=== PATIENT | female | born 1950 | race Caucasian/White ===

== ENCOUNTER → 2016-10-24 | Outpatient (CLI) | payer BC ==
[~2016-10-24] MED LIST: /ESOM40CA; /ESOM40CA OR; /OXYC15TA OR; /PRAV20TA PO; ACIDCAP; ACIDCAP OR; ALDA25TA2; ALDA25TA2 OR; ANTI25TA; ANTI25TA OR; ATARAX; ATEN100T OR; BUSP10TA2; BUSP10TA2 OR; CALC500T49; DIOV320T PO; ENDOCET; ESTR1TAB PO; ESTR2TAB OR; FOLI1TAB; FOLI1TAB OR; HYDR-3719 PO; HYDR25TA8 OR; HYDR2TAB2 PO; IBUP800T; IBUP800T OR; LORA2TAB; LORA2TAB OR; MAGN500T2 OR; METF500T PO; NUCYNTA PO; OPAN10TA16 OR; OXYC1TAB23 PO; OXYC5CAP4 OR; OYST500T OR; PRESTIQ; PRIL20CA OR; PRIL20CA PO; REST0.05 OP; SIMBACORT; SOMA350T; SOMA350T OR; SOMA350T PO; SYMB80AE IN; TENO100T; TIZA4TAB OR; TRIAVIL; TRIAVIL OR; ULTR50TA PO; VITA-113 OR; VITA200C; VITA200C OR; VITA50TA12; Vagifem; [UNRECOGNIZED DRUG - OTHER]; [UNRECOGNIZED DRUG - OTHER] OR; [UNRECOGNIZED DRUG - OTHER] OR; [UNRECOGNIZED DRUG - OTHER] OU; [UNRECOGNIZED DRUG - OTHER] PO; endocet OR
--- NOTE | 2016-10-26 01:15 | ECWPNPC ---
PATIENT NAME: ANGELIA MCNEIL : 1950 GENDER: FEMALE VISIT DATE: 10/24/2016 DISCHARGE DATE: 10/24/16 1017 VISIT LOCKED DATE TIME: PHYSICIAN: SWETHA OVALLES RESOURCE: SWETHA OVALLES REASON FOR APPOINTMENT 1. FOLLOW UP-BACK HISTORY OF PRESENT ILLNESS HISTORY OF PRESENT ILLNESS: PAIN THE PATIENT DESCRIBES THE PAIN... FALL RISK SCREENING: SCREENING :NO FALLS IN THE PAST YEAR TODAY'S VISIT: NOTES: STATES IS HAVING MORE DIFFICULTY WITH PAIN PREVENTING HER FROM WALKING. HAS BEEN USING THE INVERSION TABLE WHICH DOES HELP. GOES TO [facility] INFREQUENTLY. RATES PAIN LEVEL TODAY 10/10. DESCRIBES PAIN CONSTANT, ACHING, THROBBING AND SORE, SHARP AND STABBING. NOTES THAT MOST PAIN IS OVER THE HIPS AND DOWN THE LEGS.. CURRENT MEDICATIONS TAKING SOMA 350 MG TABLET 1 TABLET NEEDED ORALLY BID TAKING METFORMIN HCL 500 MG TABLET 1 TABLET WITH MEALS ORALLY TWICE A DAY TAKING TENORMIN 50 MG TABLET 1 TABLET ORALLY ONCE A DAY TAKING VALSARTAN 80 MG TABLET 1 TABLET ORALLY ONCE A DAY TAKING SPIRONOLACTONE 25 MG TABLET 1 TABLET ORALLY ONCE A DAY TAKING BUSPAR 10 MG TABLET 2 TABLET ORALLY ONCE A DAY TAKING HYDROXYZINE HCL 25 MG TABLET 1 TABLET NEEDED ORALLY EVERY 8 HRS TAKING LORAZEPAM 2 MG TABLET 1 ORALLY 3 TIMES DAILY NEEDED TAKING OMEPRAZOLE 40 MG CAPSULE DELAYED RELEASE 1 CAPSULE ORALLY ONCE A DAY TAKING SYMBICORT 160-4.5 MCG/ACT AEROSOL 2 PUFFS INHALATION TWICE A DAY TAKING MAGNESIUM 500 MG TABLET 1 TABLET WITH A MEAL ORALLY THREE TIMES A DAY TAKING CALCIUM 1200 MG TABLET 1 TABLET WITH MEALS ORALLY TWICE A DAY TAKING PRAVACHOL 40 MG TABLET 1 TABLET ORALLY ONCE A DAY TAKING RESTASIS 0.05 % EMULSION 1 INTO AFFECTED EYE OPHTHALMIC TWICE A DAY TAKING AMITRIPTYLINE HCL 50 MG TABLET 1 TABLET ORALLY FOUR TIMES A DAY TAKING IBUPROFEN 800 MG TABLET 1 TABLET ORALLY THREE TIMES A DAY PRN PAIN 3 MONTHS SUPPLY TAKING DRONABINOL 5 MG CAPSULE 1 CAPSULE BEFORE LUNCH AND SUPPER ORALLY TWICE A DAY MDD=2 TAKING HYDROCODONE-ACETAMINOPHEN 10-325 MG TABLET 1 TABLET NEEDED ORALLY EVERY 6- 8 HRS MDD3 NOT-TAKING IRON 1 TAB ORAL DAILY NOT-TAKING ESTRADIOL 1 MG TABLET 1 TABLET ORALLY EVERY OTHER DAY, NOTES: WEANING OFF MEDICATION LIST REVIEWED AND RECONCILED WITH THE PATIENT PAST MEDICAL HISTORY HYPERTENSION ANXIETY DIABETES COPD CERVICAL CANCER HYPERLIPIDEMIA ALLERGIES MORPHINE SULFATE: ITCHING: ALLERGY PENICILLIN (FOR ALLERGIES USE ONLY): HIVES: ALLERGY SULFA (FOR ALLERGY USE ONLY): HIVES: ALLERGY TIZANIDINE HCL: EXCESSIVE SLEEPINESS: CONTRAINDICATION SOCIAL HISTORY GENERAL: TOBACCO USE ARE YOU A:NONSMOKER LEARNING BARRIERS / SPECIAL NEEDS ORIENTED TO PLAN OF CARE: PATIENT, PAIN MANAGEMENT PATIENT, ORIENTED TO PLAN OF CARE: PATIENT, PAIN MANAGEMENT PATIENT. NEW PATIENT PAIN DIARY TODAY'S VISITNOTES FROM 0-10, WHAT LEVEL IS YOUR PAIN TODAY?0 PAIN CLINIC PFS, CLERGY, PUBLIC HEALTH REFERRALS PFS REFERRAL NEEDED?NO CLERGY REFERRAL NEEDED?NO PUBLIC HEALTH REFERRAL NEEDED?NO WAS THE PROVIDER NOTIFIED OF ANY PERTINENT INFO?NO PFS REFERRAL NEEDED?NO CLERGY REFERRAL NEEDED?NO PUBLIC HEALTH REFERRAL NEEDED?NO WAS THE PROVIDER NOTIFIED OF ANY PERTINENT INFO?NO REVIEW OF SYSTEMS CONSTITUTIONAL: ANY CHANGE IN YOUR MEDICAL CONDITION? NO . CHILLS NO . FEVER NO . INFECTION: DO YOU HAVE NEW INFECTIONS? NO . DO YOU HAVE HISTORY OF MRSA? NO . MUSCULOSKELETAL: ANY NEW PATTERNS OF PAIN OR NUMBNESS? NO . GASTROENTEROLOGY: GENERAL NOTES SOME GI DISCOMFORT WITH IBUPROFEN. . ANY NEW CHANGE IN BOWEL CONTROL? NO . GENITOURINARY: ANY NEW CHANGE IN BLADDER CONTROL? NO . IS THERE A CHANCE YOU COULD BE ? NO . HEMATOLOGY/LYMPH: GENERAL BEING TREATED FOR ANEMIA. IRON CAUSES ANEMIA . DO YOU TAKE ANY BLOOD THINNERS? (FOR EXAMPLE- COUMADIN, PLAVIX, AGGRENOX, PLATEL, PRADAXA, OR XARELTO) NO . WHEN WAS YOUR LAST DOSE? DATE: TIME: . NEUROLOGY: HAVE YOU FALLEN IN THE PAST 6 MONTHS? NO . ANY NEW EXTREMITY NUMBNESS OR WEAKNESS? NO . CARDIOLOGY: DO YOU HAVE A PACEMAKER OR DEFIBRILLATOR? NO . RESPIRATORY: HAVE YOU BEEN SICK IN THE PAST WEEK? NO . FEVER NO . FLU LIKE SYMPTOMS? NO . COUGH NO . INTEGUMENTARY: DO YOU HAVE ANY RASHES OR OPEN SORES? NO . ALLERGIC/IMMUNO: ARE YOU ALLERGIC TO SHELLFISH OR IV DYE? NO . ANY NEW ALLERGIES? NO . PSYCHIATRIC: DO YOU HAVE THOUGHTS OF HURTING YOURSELF OR SOMEONE ELSE? NO . ARE YOU ABUSED, NEGLECTED, OR IN AN UNSAFE ENVIRONMENT? NO . ENDOCRINOLOGY: ARE YOU DIABETIC? NO . OTHER: DO YOU NEED ANY PRESCRIPTIONS? YES SOMA . IF YES, PLEASE LIST: ____ . ANY NEW PROBLEMS WITH YOUR MEDICATIONS? NO . WHEN DID YOU LAST EAT? ____ . WHEN DID YOU LAST DRINK? ____ . WHAT DID YOU LAST DRINK? ____ . NAME OF PERSON DRIVING YOU HOME? ____ . DO YOU HAVE ANY OTHER QUESTIONS OR CONCERNS NO . REVIEWED BY: PROVIDER: SWETHA SOMMER . VITAL SIGNS WT 156 LBS, HT 62 IN, BMI 28.53 INDEX, BP 117/65 MM HG, HR 69 /MIN, RR 16 /MIN, TEMP 96.9 F, OXYGEN SAT % 96%, NA INITIALS SC 09:43. EXAMINATION GENERAL EXAMINATION: LUNGS:CLEAR TO AUSCULTATION BILATERALLY. HEART:HEART RATE REGULAR. MUSCULOSKELETAL:RISES EASILY TO STANDING POSITION. POSTURE UPRIGHT. POINT TENDERNESS OVER RIGHT> LEFT SIJ AND ACROSS SACRUM. , MUSCLE STRENGTH TESTING 5/5 BILATERAL LOWER EXTREMITIES. ARTHRITIC NODULES NOTED AT THE BOTH FIRST METATARSALS. GAIT INITIALLY ANTALGIC AND THEN IMPROVES AFTER A FEW STEPS. ASSESSMENTS HIP PAIN, BILATERAL - M25.551 (PRIMARY) LUMBAR FACET ARTHROPATHY - M12.88 CHRONIC PRESCRIPTION OPIATE USE - Z79.891 TREATMENT HIP PAIN, BILATERAL REFILL HYDROCODONE-ACETAMINOPHEN TABLET, 10-325 MG, 1 TABLET NEEDED, ORALLY, EVERY 6- 8 HRS MDD3, 30 DAY(S), 90, REFILLS 0 START SOMA TABLET, 350 MG, 1 TABLET, ORALLY, BID MDD=2, 30 DAY(S), 60, REFILLS 2 NOTES: UTOX TODAY. CONTINUE CURRENT MEDS. CONTINUE INVERSION TABLE. WALK DAILY. CLINICAL NOTES: ISTOP REGISTRY REVIEWED AND DEMNOSTRATES COMPLLIANCE. BRINGS IN MEDICATIONS WHICH IS APPROPRIATE FOR WHAT WAS DISPENSED. RECENT URINE TOXICOLOGY REVIEWED. NO UNAUTHORIZED MEDICATIONS. NO ILLICIT SUBSTANCES AND PRESCRIBED MEDICATIONS WERE PRESENT. PROCEDURE CODES FA211 ESTABILISHED PATIENT [facility] CHARGE FOLLOW UP 2 MONTHS ELECTRONICALLY SIGNED BY RADHA WEST ON 10/25/2016 AT 07:27 PM EST DISCLAIMER : THIS IS A VISIT SUMMARY EXTRACTED FROM THE [employer] CHART. IT IS NOT A COPY OF THE [employer] PROGRESS NOTE. MTDD
== END ==
LOC: M PAIN 09:40
PROVIDERS: ATTEND Nurse Practitioner Family
DX: Z09 Encounter for follow-up examination after completed treatment for conditions other than malignant neoplasm (principal); M25.551 Pain in right hip; M12.88 Other specific arthropathies, not elsewhere classified, other specified site; I10 Essential (primary) hypertension; E11.9 Type 2 diabetes mellitus without complications; F41.9 Anxiety disorder, unspecified; J44.9 Chronic obstructive pulmonary disease, unspecified; E78.5 Hyperlipidemia, unspecified; Z88.5 Allergy status to narcotic agent; Z88.0 Allergy status to penicillin; Z88.2 Allergy status to sulfonamides; Z88.8 Allergy status to other drugs, medicaments and biological substances; Z79.891 Long term (current) use of opiate analgesic; Z79.84 Long term (current) use of oral hypoglycemic drugs; Z79.1 Long term (current) use of non-steroidal anti-inflammatories (NSAID); Z79.899 Other long term (current) drug therapy; Z85.41 Personal history of malignant neoplasm of cervix uteri

== ENCOUNTER → 2017-03-26 | Outpatient (CLI) | payer BC ==
[~2017-03-26] MED LIST changes: -METF500T PO; +METF500T13 PO; -ULTR50TA PO; +ULTR50TA8 PO
--- NOTE | 2017-04-12 00:33 | ECWPNPC ---
PATIENT NAME: ANGELIA MCNEIL : 1950 GENDER: FEMALE VISIT DATE: 03/26/2017 DISCHARGE DATE: 03/26/17 1105 VISIT LOCKED DATE TIME: PHYSICIAN: SWETHA OVALLES RESOURCE: SWETHA OVALLES REASON FOR APPOINTMENT 1. MEDS HISTORY OF PRESENT ILLNESS HISTORY OF PRESENT ILLNESS: PAIN THE PATIENT DESCRIBES THE PAIN... FALL RISK SCREENING: SCREENING :NO FALLS IN THE PAST YEAR TODAY'S VISIT: NOTES: RATES PAIN TODAY 10/10. RATES PAIN TODAY CONSTANT, ACHING, BURNING, SHARP, SHOOTING, TENDER. HAD CONTACTED OFFICE ASKING FOR NEW PAIN MEDS - HAD DEVELOPED ALLERGY WITH SEVERE ITCHING TO HCD AND OCD. SAW PCP [facility] - HE INCREASED HER DOSE OF ATARAX TO 50 MG, SHE HAS BEEN CURRENTLY USING BOTH BENEDRYL AND ATARAX. IS HAVING SOME ISSUES WITH URINATION AND URINE CULT WAS DONE ON SUNDAY - SWAITING RESULTS. HAS FOLLOWUP SCHED WITH DR HANNAH. PAIN AREAS ARE IN THE CHEST WALL AND THORACIC REGION - CHIROPRACTER WAS ABLE TO HELP WITH THIS. IS ALSO HAVING PAIN IN THE BALLS OF HER FEET. . CURRENT MEDICATIONS TAKING METFORMIN HCL 500 MG TABLET 1 TABLET WITH MEALS ORALLY TWICE A DAY TAKING VALSARTAN 80 MG TABLET 1 TABLET ORALLY ONCE A DAY TAKING SPIRONOLACTONE 25 MG TABLET 1 TABLET ORALLY ONCE A DAY TAKING BUSPAR 10 MG TABLET 2 TABLET ORALLY ONCE A DAY TAKING HYDROXYZINE HCL 25 MG TABLET 2 TABLET NEEDED ORALLY EVERY 8 HRS TAKING LORAZEPAM 2 MG TABLET 1 ORALLY 3 TIMES DAILY NEEDED TAKING OMEPRAZOLE 40 MG CAPSULE DELAYED RELEASE 1 CAPSULE ORALLY ONCE A DAY TAKING SYMBICORT 160-4.5 MCG/ACT AEROSOL 2 PUFFS INHALATION TWICE A DAY TAKING MAGNESIUM 500 MG TABLET 1 TABLET WITH A MEAL ORALLY THREE TIMES A DAY TAKING CALCIUM 1200 MG TABLET 1 TABLET WITH MEALS ORALLY TWICE A DAY TAKING PRAVACHOL 40 MG TABLET 1 TABLET ORALLY ONCE A DAY TAKING RESTASIS 0.05 % EMULSION 1 INTO AFFECTED EYE OPHTHALMIC TWICE A DAY TAKING TENORMIN 50 MG TABLET 1 TABLET ORALLY ONCE A DAY TAKING SOMA 350 MG TABLET 1 TABLET ORALLY BID MDD=2 TAKING DRONABINOL 5 MG CAPSULE 1 CAPSULE BEFORE LUNCH AND SUPPER ORALLY TWICE A DAY MDD=2 TAKING IBUPROFEN 800 MG TABLET 1 TABLET ORALLY THREE TIMES A DAY PRN PAIN 3 MONTHS SUPPLY TAKING PERPHENAZINE-AMITRIPTYLINE 4-50 MG TABLET 1 TABLET ORALLY TWICE A DAY NOT-TAKING AMITRIPTYLINE HCL 50 MG TABLET 1 TABLET ORALLY FOUR TIMES A DAY NOT-TAKING NORCO 10-325 MG TABLET 1 TABLET NEEDED ORALLY EVERY 6 - 8 HOURS PRN PAIN MDD=3 NOT-TAKING IRON 1 TAB ORAL DAILY NOT-TAKING ESTRADIOL 1 MG TABLET 1 TABLET ORALLY EVERY OTHER DAY, NOTES: WEANING OFF MEDICATION LIST REVIEWED AND RECONCILED WITH THE PATIENT PAST MEDICAL HISTORY HYPERTENSION ANXIETY DIABETES COPD CERVICAL CANCER HYPERLIPIDEMIA ALLERGIES MORPHINE SULFATE: ITCHING: ALLERGY PENICILLIN (FOR ALLERGIES USE ONLY): HIVES: ALLERGY SULFA (FOR ALLERGY USE ONLY): HIVES: ALLERGY TIZANIDINE HCL: EXCESSIVE SLEEPINESS: CONTRAINDICATION HYDROCODONE-ACETAMINOPHEN: ITCHING: ALLERGY OXYCODONE HCL: ITCHING: ALLERGY REVIEW OF SYSTEMS REVIEWED BY: PROVIDER: SWETHA SOMMER . CONSTITUTIONAL: ANY CHANGE IN YOUR MEDICAL CONDITION? NO . CHILLS NO . FEVER NO . INFECTION: DO YOU HAVE NEW INFECTIONS? NO . DO YOU HAVE HISTORY OF MRSA? NO . MUSCULOSKELETAL: ANY NEW PATTERNS OF PAIN OR NUMBNESS? YES PT REPORTS PAIN NOW GOES DOWN BOTH LEGS INTO FEET, AND HAS SOME NUMBNESS IN HER LEFT FOOT. . GASTROENTEROLOGY: ANY NEW CHANGE IN BOWEL CONTROL? NO . GENITOURINARY: ANY NEW CHANGE IN BLADDER CONTROL? YES PT REPORTS SHE HAS HAD A BLADDER INFECTION, TREATED TWICE WITH ANITBIOTICS. SEEN BY PRIMARY FOR THIS. . IS THERE A CHANCE YOU COULD BE ? NO . HEMATOLOGY/LYMPH: DO YOU TAKE ANY BLOOD THINNERS? (FOR EXAMPLE- COUMADIN, PLAVIX, AGGRENOX, PLATEL, PRADAXA, OR XARELTO) NO . WHEN WAS YOUR LAST DOSE? DATE: TIME: . NEUROLOGY: HAVE YOU FALLEN IN THE PAST 6 MONTHS? NO . ANY NEW EXTREMITY NUMBNESS OR WEAKNESS? NO . CARDIOLOGY: DO YOU HAVE A PACEMAKER OR DEFIBRILLATOR? NO . RESPIRATORY: HAVE YOU BEEN SICK IN THE PAST WEEK? NO . FEVER NO . FLU LIKE SYMPTOMS? NO . COUGH NO . INTEGUMENTARY: DO YOU HAVE ANY RASHES OR OPEN SORES? NO . ALLERGIC/IMMUNO: ARE YOU ALLERGIC TO SHELLFISH OR IV DYE? NO . ANY NEW ALLERGIES? NO . PSYCHIATRIC: DO YOU HAVE THOUGHTS OF HURTING YOURSELF OR SOMEONE ELSE? NO . ARE YOU ABUSED, NEGLECTED, OR IN AN UNSAFE ENVIRONMENT? NO . ENDOCRINOLOGY: ARE YOU DIABETIC? YES - STATES BLOOD SUGARS ARE UNDER CONTROL . OTHER: DO YOU NEED ANY PRESCRIPTIONS? NO . IF YES, PLEASE LIST: ____ . ANY NEW PROBLEMS WITH YOUR MEDICATIONS? YES PT REPORTS ITCHING WITH HYDROCODONE AND OXYCODONE, AND HAS STOPPED TAKING IT . WHEN DID YOU LAST EAT? ____ . WHEN DID YOU LAST DRINK? ____ . WHAT DID YOU LAST DRINK? ____ . NAME OF PERSON DRIVING YOU HOME? ____ . DO YOU HAVE ANY OTHER QUESTIONS OR CONCERNS NO . VITAL SIGNS WT 161.8 LBS, HT 62 IN, BMI 29.59 INDEX, BP 132/52 MM HG, HR 71 /MIN, RR 16 /MIN, TEMP 97.8 F, OXYGEN SAT % 98%, NA INITIALS TL 1004. EXAMINATION GENERAL EXAMINATION: LUNGS:CLEAR TO AUSCULTATION BILATERALLY. HEART:HEART RATE REGULAR. MUSCULOSKELETAL:RISES EASILY TO STANDING POSITION. POSTURE UPRIGHT. POINT TENDERNESS OVER RIGHT> LEFT SIJ AND ACROSS SACRUM. TENDERNESS ALSO WITH PALPATION OVER LEFT GREATER THAN RIGHT TROCANTER. MUSCLE STRENGTH TESTING 5/5 BILATERAL LOWER EXTREMITIES. ARTHRITIC NODULES NOTED AT THE BOTH FIRST METATARSALS, RIGHT GREATER THAN LEFT.. GAIT INITIALLY ANTALGIC AND THEN IMPROVES AFTER A FEW STEPS. ASSESSMENTS HIP PAIN, BILATERAL - M25.551 (PRIMARY) LUMBAR FACET ARTHROPATHY - M12.88 CHRONIC PRESCRIPTION OPIATE USE - Z79.891 TREATMENT HIP PAIN, BILATERAL START NUCYNTA TABLET, 75 MG, 1 TABLET, ORALLY, EVERY 6 - 8 HRS PRN PAIN MDD=3, 30 DAY(S), 90, REFILLS 0 NOTES: EAT FOODS WITH HIGH IRON LEVELS. CLINICAL NOTES: WE WILL COUNT AND DISPOSE OF OXYCODONE AND HYDROCODONE, ISTOP REGISTRY REVIEWED AND DEMNOSTRATES COMPLLIANCE. BRINGS IN MEDICATIONS WHICH IS APPROPRIATE FOR WHAT WAS DISPENSED. RECENT URINE TOXICOLOGY REVIEWED. NO UNAUTHORIZED MEDICATIONS. NO ILLICIT SUBSTANCES AND PRESCRIBED MEDICATIONS WERE PRESENT. PROCEDURE CODES FA211 ESTABILISHED PATIENT [facility] CHARGE DISPOSITION & COMMUNICATION FOLLOW UP 2 MONTHS (REASON: BACK PAIN) ELECTRONICALLY SIGNED BY RADHA WEST ON 04/11/2017 AT 08:30 AM EDT DISCLAIMER : THIS IS A VISIT SUMMARY EXTRACTED FROM THE [employer] CHART. IT IS NOT A COPY OF THE [employer] PROGRESS NOTE. MTDD
== END ==
LOC: M PAIN 10:00
PROVIDERS: ATTEND Nurse Practitioner Family
DX: M25.551 Pain in right hip (principal); M12.88 Other specific arthropathies, not elsewhere classified, other specified site; G89.29 Other chronic pain; I10 Essential (primary) hypertension; E11.9 Type 2 diabetes mellitus without complications; F41.9 Anxiety disorder, unspecified; J44.9 Chronic obstructive pulmonary disease, unspecified; E78.5 Hyperlipidemia, unspecified; Z79.891 Long term (current) use of opiate analgesic; Z79.899 Other long term (current) drug therapy; Z88.5 Allergy status to narcotic agent; Z88.0 Allergy status to penicillin; Z88.2 Allergy status to sulfonamides; Z88.8 Allergy status to other drugs, medicaments and biological substances

== ENCOUNTER → 2017-06-20 | Outpatient (CLI) | payer BC ==
--- NOTE | 2017-07-05 00:43 | ECWPNPC ---
PATIENT NAME: ANGELIA MCNEIL : 1950 GENDER: FEMALE VISIT DATE: 06/20/2017 DISCHARGE DATE: 06/20/17 1057 VISIT LOCKED DATE TIME: PHYSICIAN: SWETHA OVALLES RESOURCE: SWETHA OVALLES REASON FOR APPOINTMENT 1. MEDS HISTORY OF PRESENT ILLNESS HISTORY OF PRESENT ILLNESS: PAIN THE PATIENT DESCRIBES THE PAIN... FALL RISK SCREENING: SCREENING :NO FALLS IN THE PAST YEAR TODAY'S VISIT: NOTES: IS NOT FEELING WELL. STARTED NUCYNTA BUT APPRAENTLY HAS BEEN EXPERIENCING ITCHING AND RASH. . NUCYNTA DID HELP THE PAIN. TRIED TO TAKE IT WITH BENEDRYL. HAS STOPPED MM. WAS IN [facility] ER OVER DAY WEEKEND. HAD SEVERE GI BUG WITH DIARRHEA AFTER DOSE OF MAG SULFATE.NOTES SHE IS HURTING ALL OVER. RATES PAIN TODAY 7-8/10. DESCRIBES PAIN CONSTAND, ACHING, THROBBING SHARP AND SORE. PAIN IS CENTERED ACROSS THE LOW BACK WITH RADIATION TO BOTH HIPS AND DOWN BOTH LEGS TO LEVEL OF CALVES. . CURRENT MEDICATIONS TAKING METFORMIN HCL 500 MG TABLET 1 TABLET WITH MEALS ORALLY TWICE A DAY TAKING VALSARTAN 80 MG TABLET 1 TABLET ORALLY ONCE A DAY TAKING SPIRONOLACTONE 25 MG TABLET 1 TABLET ORALLY ONCE A DAY TAKING BUSPAR 10 MG TABLET 2 TABLET ORALLY ONCE A DAY TAKING HYDROXYZINE HCL 25 MG TABLET 2 TABLET NEEDED ORALLY EVERY 8 HRS TAKING LORAZEPAM 2 MG TABLET 1 ORALLY 3 TIMES DAILY NEEDED TAKING OMEPRAZOLE 40 MG CAPSULE DELAYED RELEASE 1 CAPSULE ORALLY ONCE A DAY TAKING SYMBICORT 160-4.5 MCG/ACT AEROSOL 2 PUFFS INHALATION TWICE A DAY TAKING MAGNESIUM 500 MG TABLET 1 TABLET WITH A MEAL ORALLY THREE TIMES A DAY TAKING CALCIUM 1200 MG TABLET 1 TABLET WITH MEALS ORALLY TWICE A DAY TAKING PRAVACHOL 40 MG TABLET 1 TABLET ORALLY ONCE A DAY TAKING RESTASIS 0.05 % EMULSION 1 INTO AFFECTED EYE OPHTHALMIC TWICE A DAY TAKING TENORMIN 50 MG TABLET 1 TABLET ORALLY ONCE A DAY TAKING IBUPROFEN 800 MG TABLET 1 TABLET ORALLY THREE TIMES A DAY PRN PAIN 3 MONTHS SUPPLY TAKING PERPHENAZINE-AMITRIPTYLINE 4-50 MG TABLET 1 TABLET ORALLY TWICE A DAY TAKING SOMA 350 MG TABLET 1 TABLET ORALLY BID MDD=2 NOT-TAKING DRONABINOL 5 MG CAPSULE 1 CAPSULE BEFORE LUNCH AND SUPPER ORALLY TWICE A DAY MDD=2 NOT-TAKING NUCYNTA 75 MG TABLET 1 TABLET ORALLY EVERY 6 - 8 HRS PRN PAIN MDD=3 NOT-TAKING AMITRIPTYLINE HCL 50 MG TABLET 1 TABLET ORALLY FOUR TIMES A DAY NOT-TAKING NORCO 10-325 MG TABLET 1 TABLET NEEDED ORALLY EVERY 6 - 8 HOURS PRN PAIN MDD=3 NOT-TAKING IRON 1 TAB ORAL DAILY NOT-TAKING ESTRADIOL 1 MG TABLET 1 TABLET ORALLY EVERY OTHER DAY, NOTES: WEANING OFF MEDICATION LIST REVIEWED AND RECONCILED WITH THE PATIENT PAST MEDICAL HISTORY HYPERTENSION ANXIETY DIABETES COPD CERVICAL CANCER HYPERLIPIDEMIA ALLERGIES MORPHINE SULFATE: ITCHING: ALLERGY PENICILLIN (FOR ALLERGIES USE ONLY): HIVES: ALLERGY SULFA (FOR ALLERGY USE ONLY): HIVES: ALLERGY TIZANIDINE HCL: EXCESSIVE SLEEPINESS: CONTRAINDICATION HYDROCODONE-ACETAMINOPHEN: ITCHING: ALLERGY OXYCODONE HCL: ITCHING: ALLERGY NUCYNTA: ITCHING: ALLERGY REVIEW OF SYSTEMS REVIEWED BY: PROVIDER: SWETHA SOMMER . CONSTITUTIONAL: ANY CHANGE IN YOUR MEDICAL CONDITION? WAS IN [facility] ED OVER LABOR DAY WITH UNABLE TO EAT AND FEELING SICK ALL OVER . CHILLS NO . FEVER NO . INFECTION: DO YOU HAVE NEW INFECTIONS? NO . DO YOU HAVE HISTORY OF MRSA? NO . MUSCULOSKELETAL: ANY NEW PATTERNS OF PAIN OR NUMBNESS? YES, DOWN BOTH LEGS AND INTO FEET . GASTROENTEROLOGY: ANY NEW CHANGE IN BOWEL CONTROL? NO . GENITOURINARY: ANY NEW CHANGE IN BLADDER CONTROL? NO . IS THERE A CHANCE YOU COULD BE ? NO . HEMATOLOGY/LYMPH: DO YOU TAKE ANY BLOOD THINNERS? (FOR EXAMPLE- COUMADIN, PLAVIX, AGGRENOX, PLATEL, PRADAXA, OR XARELTO) NO . WHEN WAS YOUR LAST DOSE? DATE: TIME: . NEUROLOGY: HAVE YOU FALLEN IN THE PAST 6 MONTHS? NO . ANY NEW EXTREMITY NUMBNESS OR WEAKNESS? NO . CARDIOLOGY: DO YOU HAVE A PACEMAKER OR DEFIBRILLATOR? NO . CHEST PAIN PATIENT DENIES . LEG EDEMA MINIMAL . RESPIRATORY: HAVE YOU BEEN SICK IN THE PAST WEEK? NO . FEVER NO . FLU LIKE SYMPTOMS? NO . COUGH NO . INTEGUMENTARY: DO YOU HAVE ANY RASHES OR OPEN SORES? NO . ALLERGIC/IMMUNO: ARE YOU ALLERGIC TO SHELLFISH OR IV DYE? NO . ANY NEW ALLERGIES? NO . PSYCHIATRIC: DO YOU HAVE THOUGHTS OF HURTING YOURSELF OR SOMEONE ELSE? NO . ARE YOU ABUSED, NEGLECTED, OR IN AN UNSAFE ENVIRONMENT? NO . ENDOCRINOLOGY: ARE YOU DIABETIC? YES . OTHER: DO YOU NEED ANY PRESCRIPTIONS? YES, NUCYNTA MAKES HER ITCH ALL OVER . IF YES, PLEASE LIST: ____ . ANY NEW PROBLEMS WITH YOUR MEDICATIONS? YES . WHEN DID YOU LAST EAT? ____ . WHEN DID YOU LAST DRINK? ____ . WHAT DID YOU LAST DRINK? ____ . NAME OF PERSON DRIVING YOU HOME? ____ . DO YOU HAVE ANY OTHER QUESTIONS OR CONCERNS NO . VITAL SIGNS WT 151 LBS, HT 62 IN, BMI 27.62 INDEX, BP 97/51 MM HG, HR 64 /MIN, RR 18 /MIN, TEMP 97.2 F, OXYGEN SAT % 98%, NA INITIALS [id number], REVIEWED BY: NLDISCUSSED LOW BP WITH BOTH PT AND PRACTICIONER. EXAMINATION GENERAL EXAMINATION: GENERAL APPEARANCE:PALE. PSYCHALERT , ORIENTED X 3 , DISTRESSED. LUNGS:CLEAR TO AUSCULTATION BILATERALLY . HEART:HEART RATE REGULAR . MUSCULOSKELETAL:RISES SLOWLY TO STANDING POSITION. POSTURE UPRIGHT. POINT TENDERNESS OVER RIGHT> LEFT SIJ AND ACROSS SACRUM. TENDERNESS ALSO WITH PALPATION OVER LEFT GREATER THAN RIGHT TROCANTER. MUSCLE STRENGTH TESTING 5/5 BILATERAL LOWER EXTREMITIES. ARTHRITIC NODULES NOTED AT THE BOTH FIRST METATARSALS, RIGHT GREATER THAN LEFT.. GAIT ANTALGIC.. ASSESSMENTS HIP PAIN, BILATERAL - M25.551 (PRIMARY) LUMBAR FACET ARTHROPATHY - M12.88 CHRONIC PRESCRIPTION OPIATE USE - Z79.891 TREATMENT HIP PAIN, BILATERAL START BUTRANS PATCH WEEKLY, 5 MCG/HR, 1 PATCH TO SKIN, TRANSDERMAL, APPLY TO SHOULDERQ 7 DAYS MDD=1, 30 DAY(S), 4, REFILLS 0 NOTES: RESTART DRONABINOL 5 MG AT BEDTIME. CONSIDER SECOND OPINION REGARDING BLOOD PRESSURE AND MEDS. COUNT AND DESTROY NUCYNTA. MEDCATIONS REVIEWED. PATIENT HAS MANY ALLERGIES AND SENSITIVITIES. WILL TRY TO START BUTRANS PATCH FOR PAIN CONTROL. IS NOT A CANDIDATE FOR [employer] WE ARE CONCERNED THAT THIS WOULD BE TOO POTENT AND PUT HER AT INCREASED RISK FOR FALLS AND RESPIRATORY FAILURE. PROCEDURE CODES FA211 ESTABILISHED PATIENT [facility] CHARGE DISPOSITION & COMMUNICATION FOLLOW UP 1 MONTH (REASON: BACK PAIN) ELECTRONICALLY SIGNED BY RADHA WEST ON 07/02/2017 AT 01:46 PM EDT DISCLAIMER : THIS IS A VISIT SUMMARY EXTRACTED FROM THE [email or web address] CHART. IT IS NOT A COPY OF THE [email or web address] PROGRESS NOTE. NAZANIN
== END ==
LOC: M PAIN 09:45
PROVIDERS: ATTEND Nurse Practitioner Family
DX: M25.551 Pain in right hip (principal); M12.88 Other specific arthropathies, not elsewhere classified, other specified site; I10 Essential (primary) hypertension; F41.9 Anxiety disorder, unspecified; E11.9 Type 2 diabetes mellitus without complications; J44.9 Chronic obstructive pulmonary disease, unspecified; E78.5 Hyperlipidemia, unspecified; Z88.5 Allergy status to narcotic agent; Z88.0 Allergy status to penicillin; Z88.2 Allergy status to sulfonamides; Z88.8 Allergy status to other drugs, medicaments and biological substances; Z79.84 Long term (current) use of oral hypoglycemic drugs; Z79.1 Long term (current) use of non-steroidal anti-inflammatories (NSAID); Z79.891 Long term (current) use of opiate analgesic; Z79.899 Other long term (current) drug therapy

== ENCOUNTER → 2017-07-24 | Outpatient (CLI) | payer BC | LOC: M PAIN 09:30 | PROVIDERS: ATTEND Nurse Practitioner Family | DX: M25.551 Pain in right hip (principal); M12.88 Other specific arthropathies, not elsewhere classified, other specified site; I10 Essential (primary) hypertension; E11.9 Type 2 diabetes mellitus without complications; Z79.891 Long term (current) use of opiate analgesic; Z79.84 Long term (current) use of oral hypoglycemic drugs; Z79.899 Other long term (current) drug therapy; Z88.0 Allergy status to penicillin; Z88.2 Allergy status to sulfonamides; Z88.5 Allergy status to narcotic agent; Z88.8 Allergy status to other drugs, medicaments and biological substances ==

== ENCOUNTER → 2017-10-08 | Outpatient (CLI) | payer BC | LOC: M PAIN 09:30 | DX: M25.551 Pain in right hip (principal); M12.88 Other specific arthropathies, not elsewhere classified, other specified site; E11.9 Type 2 diabetes mellitus without complications; I10 Essential (primary) hypertension; F41.9 Anxiety disorder, unspecified; J44.9 Chronic obstructive pulmonary disease, unspecified; E78.5 Hyperlipidemia, unspecified; Z88.0 Allergy status to penicillin; Z88.2 Allergy status to sulfonamides; Z88.5 Allergy status to narcotic agent; Z88.8 Allergy status to other drugs, medicaments and biological substances; Z79.84 Long term (current) use of oral hypoglycemic drugs; Z79.1 Long term (current) use of non-steroidal anti-inflammatories (NSAID); Z79.891 Long term (current) use of opiate analgesic; Z79.899 Other long term (current) drug therapy | CPT/HCPCS: G0463 ==

== ENCOUNTER → 2018-01-07 | Outpatient (CLI) | payer BC | LOC: M PAIN 09:30 | DX: M25.551 Pain in right hip (principal); M15.9 Polyosteoarthritis, unspecified; I10 Essential (primary) hypertension; E11.9 Type 2 diabetes mellitus without complications; F41.9 Anxiety disorder, unspecified; J44.9 Chronic obstructive pulmonary disease, unspecified; E78.5 Hyperlipidemia, unspecified; D64.9 Anemia, unspecified; Z79.82 Long term (current) use of aspirin; Z79.84 Long term (current) use of oral hypoglycemic drugs; Z79.891 Long term (current) use of opiate analgesic; Z79.899 Other long term (current) drug therapy; Z88.0 Allergy status to penicillin; Z88.2 Allergy status to sulfonamides; Z88.5 Allergy status to narcotic agent; Z88.8 Allergy status to other drugs, medicaments and biological substances | CPT/HCPCS: G0463 ==

== ENCOUNTER → 2018-03-13 | Outpatient (CLI) | payer BC | LOC: M PAIN 09:15 | DX: M25.551 Pain in right hip (principal); M12.88 Other specific arthropathies, not elsewhere classified, other specified site; I10 Essential (primary) hypertension; E11.9 Type 2 diabetes mellitus without complications; J44.9 Chronic obstructive pulmonary disease, unspecified; E78.5 Hyperlipidemia, unspecified; D64.9 Anemia, unspecified; Z79.82 Long term (current) use of aspirin; Z79.84 Long term (current) use of oral hypoglycemic drugs; Z79.891 Long term (current) use of opiate analgesic; Z79.899 Other long term (current) drug therapy; Z88.8 Allergy status to other drugs, medicaments and biological substances; Z91.81 History of falling; Z85.41 Personal history of malignant neoplasm of cervix uteri | CPT/HCPCS: G0463 ==

== ENCOUNTER → 2018-06-25 | Outpatient (CLI) | payer BC | LOC: M PAIN 09:15 | DX: M12.88 Other specific arthropathies, not elsewhere classified, other specified site (principal); M15.9 Polyosteoarthritis, unspecified; I10 Essential (primary) hypertension; F41.9 Anxiety disorder, unspecified; E11.9 Type 2 diabetes mellitus without complications; J44.9 Chronic obstructive pulmonary disease, unspecified; E78.5 Hyperlipidemia, unspecified; D64.9 Anemia, unspecified; Z85.41 Personal history of malignant neoplasm of cervix uteri; Z79.84 Long term (current) use of oral hypoglycemic drugs; Z79.82 Long term (current) use of aspirin; Z79.899 Other long term (current) drug therapy; Z88.0 Allergy status to penicillin; Z88.2 Allergy status to sulfonamides; Z88.5 Allergy status to narcotic agent; Z88.8 Allergy status to other drugs, medicaments and biological substances | CPT/HCPCS: G0463 ==

== ENCOUNTER → 2018-10-08 | Outpatient (CLI) | payer BC ==
--- NOTE | 2018-10-28 01:57 | ECWPNPC ---
PATIENT NAME: ANGELIA MCNEIL : 1950 GENDER: FEMALE VISIT DATE: 10/08/2018 DISCHARGE DATE: 10/08/18 1029 VISIT LOCKED DATE TIME: PHYSICIAN: MARINA STARKEY RESOURCE: MARINA STARKEY REASON FOR APPOINTMENT 1. BACK HISTORY OF PRESENT ILLNESS HISTORY OF PRESENT ILLNESS: HERE FOR F/U OF CHRONIC GENERALIZED PAIN.RATING PAIN VAS 9/10.CURRENTLY TAKING DRONABINOL ,IBUPROFEN AND SOMA.HISTORY OF MULTIPLE DRUG ALLERGIES ECSPECIALLY WITH PAIN MEDICATION.FINDS CURRENT MEDICATION EFFECTIVE AT REDUCING PAIN AND KEEPING HER COMFORTABLE .DENIES SIDE EFFECTS. PAIN THE PATIENT DESCRIBES THE PAIN... FALL RISK SCREENING: SCREENING :NO FALLS IN THE PAST YEAR CURRENT MEDICATIONS TAKING LORAZEPAM 1 MG TABLET 1 ORALLY 3 TIMES DAILY NEEDED TAKING OMEPRAZOLE 40 MG CAPSULE DELAYED RELEASE 1 CAPSULE ORALLY ONCE A DAY TAKING SYMBICORT 160-4.5 MCG/ACT AEROSOL 2 PUFFS INHALATION TWICE A DAY TAKING MAGNESIUM 400 MG TABLET 1 TABLET WITH A MEAL ORALLY THREE TIMES A DAY TAKING CALCIUM 1200 MG TABLET 1 TABLET WITH MEALS ORALLY TWICE A DAY TAKING RESTASIS 0.05 % EMULSION 1 INTO AFFECTED EYE OPHTHALMIC TWICE A DAY TAKING PERPHENAZINE-AMITRIPTYLINE 4-50 MG TABLET 1 TABLET ORALLY TWICE A DAY TAKING PRAVACHOL 40 MG TABLET 1 TABLET ORALLY ONCE A DAY TAKING ACIDOPHILUS - CAPSULE ORALLY BID TAKING B-12 5000 MCG CAPSULE ORALLY TAKING ASPIRIN 81 81 MG TABLET CHEWABLE 1 TABLET ORALLY ONCE A DAY TAKING VITAMIN E 400 UNIT CAPSULE 1 CAPSULE ORALLY ONCE A DAY TAKING STOOL SOFTENER 100 MG CAPSULE 1 CAPSULE NEEDED ORALLY ONCE A DAY TAKING BENADRYL 25 MG CAPSULE 1 CAPSULE NEEDED ORALLY EVERY 8 HRS TAKING VITAMIN C 500 MG CAPSULE ORALLY DAILY TAKING FOLIC ACID 1 MG TABLET 1 TABLET ORALLY ONCE A DAY TAKING IBUPROFEN 600 MG TABLET 1 TABLET ORALLY BID PRN PAIN WITH FOOD MDD=2 TAKING SOMA 350 MG TABLET 1 TABLET ORALLY THREE TIMES DAILY NEEDED PRN SPASM MDD=3 TAKING DRONABINOL 5 MG CAPSULE 1 CAPSULE BEFORE LUNCH AND SUPPER ORALLY TWICE A DAY MDD=2 TAKING HYDRALAZINE HCL 50 MG TABLET 1 TABLET WITH FOOD ORALLY BID TAKING LABETALOL HCL 200 MG TABLET 1 TABLET ORALLY TWICE A DAY TAKING FELODIPINE ER 5 MG TABLET EXTENDED RELEASE 24 HOUR 1 TABLET ORALLY ONCE A DAY TAKING TRULICITY 0.75 MG/0.5ML SOLUTION PEN-INJECTOR SUBCUTANEOUS NOT-TAKING METFORMIN HCL 500 MG TABLET 1 TABLET WITH MEALS ORALLY TWICE A DAY NOT-TAKING HYDROXYZINE HCL 25 MG TABLET 2 TABLET NEEDED ORALLY EVERY 8 HRS NOT-TAKING TENORMIN 50 MG TABLET 1 TABLET ORALLY ONCE A DAY NOT-TAKING L-LYSINE 500 MG TABLET ORALLY NOT-TAKING BIOTIN 10 MG CAPSULE ORALLY NOT-TAKING IRON (FERROUS GLUCONATE) 325 MG TABLET ORALLY NOT-TAKING LOSARTAN POTASSIUM 50 MG TABLET 1 TABLET ORALLY ONCE A DAY NOT-TAKING SPIRONOLACTONE 25 MG TABLET 1 TABLET ORALLY ONCE A DAY NOT-TAKING VALSARTAN 80 MG TABLET 1 TABLET ORALLY ONCE A DAY NOT-TAKING BUSPAR 10 MG TABLET 2 TABLET ORALLY ONCE A DAY NOT-TAKING BUTRANS 5 MCG/HR PATCH WEEKLY 1 PATCH TO SKIN TRANSDERMAL APPLY TO SHOULDERQ 7 DAYS MDD=1, NOTES: UNABLE TO TOLERATE NOT-TAKING NUCYNTA 75 MG TABLET 1 TABLET ORALLY EVERY 6 - 8 HRS PRN PAIN MDD=3 NOT-TAKING AMITRIPTYLINE HCL 50 MG TABLET 1 TABLET ORALLY FOUR TIMES A DAY NOT-TAKING NORCO 10-325 MG TABLET 1 TABLET NEEDED ORALLY EVERY 6 - 8 HOURS PRN PAIN MDD=3 NOT-TAKING IRON 1 TAB ORAL DAILY NOT-TAKING ESTRADIOL 1 MG TABLET 1 TABLET ORALLY EVERY OTHER DAY, NOTES: WEANING OFF MEDICATION LIST REVIEWED AND RECONCILED WITH THE PATIENT PAST MEDICAL HISTORY HYPERTENSION ANXIETY DIABETES COPD CERVICAL CANCER HYPERLIPIDEMIA ANEMIA ALLERGIES MORPHINE SULFATE: ITCHING: ALLERGY PENICILLIN (FOR ALLERGIES USE ONLY): HIVES: ALLERGY SULFA (FOR ALLERGY USE ONLY): HIVES: ALLERGY TIZANIDINE HCL: EXCESSIVE SLEEPINESS: CONTRAINDICATION HYDROCODONE-ACETAMINOPHEN: ITCHING: ALLERGY BUPRENORPHINE: LIGHT HEAD / DIZZY OXYCODONE HCL: ITCHING: ALLERGY NUCYNTA: ITCHING: ALLERGY LOSARTAN POTASSIUM-HCTZ: SKIN REACTION SURGICAL HISTORY [place] 1987 HYSTERECTOMY 1979 FAMILY HISTORY FATHER: MOTHER: SIBLINGS: ALIVE, DIAGNOSED WITH DIABETES, HYPERTENSION SON(S): ALIVE, DIAGNOSED WITH DIABETES, HYPERTENSION SOCIAL HISTORY GENERAL: TOBACCO USE ARE YOU A:NONSMOKER ALCOHOL SCREENING DID YOU HAVE A DRINK CONTAINING ALCOHOL IN THE PAST YEAR?NO POINTS0 INTERPRETATIONNEGATIVE JEWISH [id number] NONE LANGUAGE LANGUAGES SPOKEN:[place] LEARNING BARRIERS / SPECIAL NEEDS BARRIERS TO LEARNING?NO HEARING IMPAIRED?NO VISION IMPAIRED?NO COGNITIVELY IMPAIRED?NO READINESS TO LEARN?YES PAIN CLINIC PFS, CLERGY, PUBLIC HEALTH REFERRALS PFS REFERRAL NEEDED?NO CLERGY REFERRAL NEEDED?NO PUBLIC HEALTH REFERRAL NEEDED?NO WAS THE PROVIDER NOTIFIED OF ANY PERTINENT INFO?NO HAS THE PATIENT BEEN EDUCATED REGARDING HIS/HER PLAN OF CARE?YES HAS THE PATIENT BEEN EDUCATED REGARDING PAIN, THE RISK FOR PAIN, THE IMPORTANCE OF EFFECTIVE PAIN MANAGEMENT, AND THE PAIN ASSESSMENT PROCESS?YES ADVANCE DIRECTIVE ADVANCE DIRECTIVE DISCUSSED WITH PATIENT:YES PT HAS NO ADVANCED DIRECTIVES, DECLINES INFORMATION OR ASSISTANCE AT THIS TIME REVIEWED WITH PT 10/08/18 0953 LAS. HOSPITALIZATION/MAJOR DIAGNOSTIC PROCEDURE NO HOSPITALIZATION HISTORY. REVIEW OF SYSTEMS REVIEWED BY: PROVIDER: MARINA SOMMER . CONSTITUTIONAL: ANY CHANGE IN YOUR MEDICAL CONDITION? NO . CHILLS NO . FEVER NO . INFECTION: DO YOU HAVE NEW INFECTIONS? NO . DO YOU HAVE HISTORY OF MRSA? NO . MUSCULOSKELETAL: ANY NEW PATTERNS OF PAIN OR NUMBNESS? NO . GASTROENTEROLOGY: ANY NEW CHANGE IN BOWEL CONTROL? NO . GENITOURINARY: ANY NEW CHANGE IN BLADDER CONTROL? NO . IS THERE A CHANCE YOU COULD BE ? NO . HEMATOLOGY/LYMPH: DO YOU TAKE ANY BLOOD THINNERS? (FOR EXAMPLE- COUMADIN, PLAVIX, AGGRENOX, PLATEL, PRADAXA, OR XARELTO) NO . WHEN WAS YOUR LAST DOSE? DATE: TIME: . NEUROLOGY: HAVE YOU FALLEN IN THE PAST 6 MONTHS? NO . ANY NEW EXTREMITY NUMBNESS OR WEAKNESS? NO . CARDIOLOGY: DO YOU HAVE A PACEMAKER OR DEFIBRILLATOR? NO . RESPIRATORY: HAVE YOU BEEN SICK IN THE PAST WEEK? NO . FEVER NO . FLU LIKE SYMPTOMS? NO . COUGH NO . INTEGUMENTARY: DO YOU HAVE ANY RASHES OR OPEN SORES? NO . ALLERGIC/IMMUNO: ARE YOU ALLERGIC TO SHELLFISH OR IV DYE? NO . ANY NEW ALLERGIES? NO . PSYCHIATRIC: DO YOU HAVE THOUGHTS OF HURTING YOURSELF OR SOMEONE ELSE? NO . ARE YOU ABUSED, NEGLECTED, OR IN AN UNSAFE ENVIRONMENT? NO . ENDOCRINOLOGY: ARE YOU DIABETIC? NO . OTHER: DO YOU NEED ANY PRESCRIPTIONS? NO . IF YES, PLEASE LIST: ____ . ANY NEW PROBLEMS WITH YOUR MEDICATIONS? NO . WHEN DID YOU LAST EAT? ____ . WHEN DID YOU LAST DRINK? ____ . WHAT DID YOU LAST DRINK? ____ . NAME OF PERSON DRIVING YOU HOME? ____ . DO YOU HAVE ANY OTHER QUESTIONS OR CONCERNS NO . VITAL SIGNS WT 164.6 LBS, HT 62 IN, BMI 30.10 INDEX, BP 122/57 MM HG, HR 82 /MIN, RR 16 /MIN, TEMP 97.6 F, OXYGEN SAT % 90%, SAFE IN ENV? (Y/N) YES, NA INITIALS AW 0923, REVIEWED BY: BONNY. EXAMINATION GENERAL EXAMINATION: GENERAL APPEARANCE:AWAKE,ALERT ,PLEAASANT . PSYCHAFFECT NORMAL . LUNGS:LUNG DOWNS ARE CLEAR TO AUSCULTATION BILATERALLY. GOOD MOVEMENT OF AIR . HEART:S1, S2 IN A REGULAR RATE AND RHYTHM. NO SIGNIFICANT MURMURS, RUBS OR GALLOPS NOTED . ASSESSMENTS LUMBAR FACET ARTHROPATHY - M46.96 (PRIMARY) OTHER CHRONIC PAIN - G89.29 CHRONIC PRESCRIPTION OPIATE USE - Z79.899 TREATMENT LUMBAR FACET ARTHROPATHY REFILL IBUPROFEN TABLET, 600 MG, 1 TABLET, ORALLY, BID PRN PAIN WITH FOOD MDD=2, 90 DAY(S), 180, REFILLS 2 REFILL SOMA TABLET, 350 MG, 1 TABLET, ORALLY, THREE TIMES DAILY NEEDED PRN SPASM MDD=3, 30 DAY(S), 90, REFILLS 2 REFILL DRONABINOL CAPSULE, 5 MG, 1 CAPSULE BEFORE LUNCH AND SUPPER, ORALLY, TWICE A DAY MDD=2, 30 DAY(S), 60, REFILLS 0 NOTES: ISTOP REGISTRY REVIEWED AND DEMONSTRATES COMPLLIANCE. (REF # [id number] ) BRINGS IN MEDICATIONS WHICH IS APPROPRIATE FOR WHAT WAS DISPENSED. RECENT URINE TOXICOLOGY REVIEWED. NO UNAUTHORIZED MEDICATIONS. NO ILLICIT SUBSTANCES AND PRESCRIBED MEDICATIONS WERE PRESENT. , RISKS AND BENEFITS OF NARCOTIC/OPIOD MEDICATIONS WERE REVIEWED WITH PATIENT - THIS INCLUDES BUT IS NOT LIMITED TO RISK OF DEPENDANCE/DEVELOPMENT OF ADDICTION, MOOD DISTURBANCE AND DEPRESSION, OSTEOPOROSIS, HORMONAL AND LABIDAL CHANGES, RESPIRATORY DEPRESSION AND . PATIENT IS ADVISED NOT TO DRIVE OR DRINK ALCOHOL WHILE ON THESE MEDICATIONS. PROCEDURE CODES FA211 ESTABILISHED PATIENT [facility] CHARGE DISPOSITION & COMMUNICATION FOLLOW UP 3 MONTHS ELECTRONICALLY SIGNED BY ROS BUI ON 10/27/2018 AT 12:35 PM EST DISCLAIMER : THIS IS A VISIT SUMMARY EXTRACTED FROM THE [email or web address] CHART. IT IS NOT A COPY OF THE [email or web address] PROGRESS NOTE. MTDD
== END ==
LOC: M PAIN 09:30
PROVIDERS: ATTEND Nurse Practitioner Family
DX: M46.96 Unspecified inflammatory spondylopathy, lumbar region (principal); G89.29 Other chronic pain; I11.0 Hypertensive heart disease with heart failure; E11.9 Type 2 diabetes mellitus without complications; J44.9 Chronic obstructive pulmonary disease, unspecified; E78.5 Hyperlipidemia, unspecified; F41.9 Anxiety disorder, unspecified; Z79.82 Long term (current) use of aspirin; Z79.899 Other long term (current) drug therapy; Z88.0 Allergy status to penicillin; Z88.2 Allergy status to sulfonamides; Z88.5 Allergy status to narcotic agent; Z88.8 Allergy status to other drugs, medicaments and biological substances

== ENCOUNTER → 2019-01-07 | Outpatient (CLI) | payer BC ==
[~2019-01-07] MED LIST changes: -/ESOM40CA; -/ESOM40CA OR; -/OXYC15TA OR; -/PRAV20TA PO; +NEXI1CAP3; +NEXI1CAP3 OR; +OXYC1TAB32 OR; +PRAV1TAB39 PO
--- NOTE | 2019-01-09 02:12 | ECWPNPC ---
PATIENT NAME: ANGELIA MCNEIL : 1950 GENDER: FEMALE VISIT DATE: 01/07/2019 DISCHARGE DATE: 01/07/19 1035 VISIT LOCKED DATE TIME: PHYSICIAN: VANDA PARDO RESOURCE: VANDA PARDO REASON FOR APPOINTMENT 1. BACK HISTORY OF PRESENT ILLNESS HISTORY OF PRESENT ILLNESS: PAIN THE PATIENT DESCRIBES THE PAIN... 68 YR OLD FEMALE HERE FR F/U ON LOWER BACK AIN.SHE DOES NOT WANT TO DISCUSS ANY PROCEDURES. FALL RISK SCREENING: SCREENING :NO FALLS REPORTED IN THE LAST YEAR CURRENT MEDICATIONS TAKING LORAZEPAM 1 MG TABLET 1 ORALLY 3 TIMES DAILY NEEDED TAKING OMEPRAZOLE 40 MG CAPSULE DELAYED RELEASE 1 CAPSULE ORALLY ONCE A DAY TAKING SYMBICORT 160-4.5 MCG/ACT AEROSOL 2 PUFFS INHALATION TWICE A DAY TAKING MAGNESIUM 400 MG TABLET 1 TABLET WITH A MEAL ORALLY BID TAKING RESTASIS 0.05 % EMULSION 1 INTO AFFECTED EYE OPHTHALMIC TWICE A DAY TAKING PRAVACHOL 40 MG TABLET 1 TABLET ORALLY ONCE A DAY TAKING ACIDOPHILUS - CAPSULE ORALLY BID TAKING B-12 5000 MCG CAPSULE ORALLY DAILY TAKING ASPIRIN 81 81 MG TABLET CHEWABLE 1 TABLET ORALLY ONCE A DAY TAKING VITAMIN E 400 UNIT CAPSULE 1 CAPSULE ORALLY ONCE A DAY TAKING STOOL SOFTENER 100 MG CAPSULE 1 CAPSULE NEEDED ORALLY ONCE A DAY TAKING BENADRYL 25 MG CAPSULE 1 CAPSULE NEEDED ORALLY EVERY 8 HRS TAKING VITAMIN C 500 MG CAPSULE ORALLY DAILY TAKING FOLIC ACID 1 MG TABLET 1 TABLET ORALLY ONCE A DAY TAKING HYDRALAZINE HCL 50 MG TABLET 1 TABLET WITH FOOD ORALLY BID TAKING LABETALOL HCL 200 MG TABLET 1 TABLET ORALLY TWICE A DAY TAKING FELODIPINE ER 5 MG TABLET EXTENDED RELEASE 24 HOUR 1 TABLET ORALLY ONCE A DAY TAKING IBUPROFEN 600 MG TABLET 1 TABLET ORALLY BID PRN PAIN WITH FOOD MDD=2 TAKING SOMA 350 MG TABLET 1 TABLET ORALLY THREE TIMES DAILY NEEDED PRN SPASM MDD=3 TAKING DRONABINOL 5 MG CAPSULE 1 CAPSULE BEFORE LUNCH AND SUPPER ORALLY TWICE A DAY MDD=2 TAKING JANUMET XR 50-500 MG TABLET EXTENDED RELEASE 24 HOUR 1 TAB ORALLY ONCE A DAY TAKING VITAMIN D-3 5000 UNIT TABLET 1 TABLET ORALLY ONCE A DAY TAKING DULOXETINE HCL 20 MG CAPSULE DELAYED RELEASE PARTICLES 1 CAPSULE ORALLY TWICE A DAY NOT-TAKING METFORMIN HCL 500 MG TABLET 1 TABLET WITH MEALS ORALLY TWICE A DAY NOT-TAKING HYDROXYZINE HCL 25 MG TABLET 2 TABLET NEEDED ORALLY EVERY 8 HRS NOT-TAKING TENORMIN 50 MG TABLET 1 TABLET ORALLY ONCE A DAY NOT-TAKING L-LYSINE 500 MG TABLET ORALLY NOT-TAKING BIOTIN 10 MG CAPSULE ORALLY NOT-TAKING IRON (FERROUS GLUCONATE) 325 MG TABLET ORALLY NOT-TAKING LOSARTAN POTASSIUM 50 MG TABLET 1 TABLET ORALLY ONCE A DAY NOT-TAKING SPIRONOLACTONE 25 MG TABLET 1 TABLET ORALLY ONCE A DAY NOT-TAKING VALSARTAN 80 MG TABLET 1 TABLET ORALLY ONCE A DAY NOT-TAKING BUSPAR 10 MG TABLET 2 TABLET ORALLY ONCE A DAY NOT-TAKING BUTRANS 5 MCG/HR PATCH WEEKLY 1 PATCH TO SKIN TRANSDERMAL APPLY TO SHOULDERQ 7 DAYS MDD=1, NOTES: UNABLE TO TOLERATE NOT-TAKING NUCYNTA 75 MG TABLET 1 TABLET ORALLY EVERY 6 - 8 HRS PRN PAIN MDD=3 NOT-TAKING AMITRIPTYLINE HCL 50 MG TABLET 1 TABLET ORALLY FOUR TIMES A DAY NOT-TAKING NORCO 10-325 MG TABLET 1 TABLET NEEDED ORALLY EVERY 6 - 8 HOURS PRN PAIN MDD=3 NOT-TAKING IRON 1 TAB ORAL DAILY NOT-TAKING ESTRADIOL 1 MG TABLET 1 TABLET ORALLY EVERY OTHER DAY, NOTES: WEANING OFF NOT-TAKING CALCIUM 1200 MG TABLET 1 TABLET WITH MEALS ORALLY TWICE A DAY NOT-TAKING PERPHENAZINE-AMITRIPTYLINE 4-50 MG TABLET 1 TABLET ORALLY TWICE A DAY NOT-TAKING TRULICITY 0.75 MG/0.5ML SOLUTION PEN-INJECTOR SUBCUTANEOUS MEDICATION LIST REVIEWED AND RECONCILED WITH THE PATIENT PAST MEDICAL HISTORY HYPERTENSION ANXIETY DIABETES COPD CERVICAL CANCER HYPERLIPIDEMIA ANEMIA BACK PAIN DRY EYES BILATERAL HIP PAIN ALLERGIES MORPHINE SULFATE: ITCHING - ALLERGY PENICILLIN (FOR ALLERGIES USE ONLY): HIVES - ALLERGY SULFA (FOR ALLERGY USE ONLY): HIVES - ALLERGY TIZANIDINE HCL: EXCESSIVE SLEEPINESS - CONTRAINDICATION HYDROCODONE-ACETAMINOPHEN: ITCHING - ALLERGY BUPRENORPHINE: LIGHT HEAD / DIZZY OXYCODONE HCL: ITCHING - ALLERGY NUCYNTA: ITCHING - ALLERGY LOSARTAN POTASSIUM-HCTZ: SKIN REACTION SURGICAL HISTORY [place] 1987 HYSTERECTOMY 1979 BILATERAL CATARACT WITH LENS IMPLANTS FAMILY HISTORY FATHER: MOTHER: SIBLINGS: ALIVE, DIAGNOSED WITH DIABETES, HYPERTENSION SON(S): ALIVE, DIABETES, HYPERTENSION SOCIAL HISTORY GENERAL: TOBACCO USE ARE YOU A:NONSMOKER LATEX QUESTIONNAIRE LATEX ALLERGY : HAVE YOU EVER DEVELOPED ANY TYPE OF REACTION AFTER HANDLING LATEX PRODUCTS SUCH RUBBER GLOVES, CONDOMS, DIAPHRAGMS, BALLOONS, SOCKS, OR UNDERWEAR?NO LATEX ALLERGY : HAVE YOU EVER DEVELOPED ANY TYPE OF REACTION DURING OR AFTER DENTAL APPOINTMENT, VAGINAL/RECTAL EXAMINATION, SURGICAL PROCEDURE, OR ANY OTHER EXPOSURE?NO LATEX RISK : HAVE YOU EVER HAD ANY DIFFICULTY BREATHING OR HIVES AFTER EATING OR HANDLING ANY FRUITS, OR VEGETABLES; SUCH KIWI, BANANAS, STONE FRUITS, OR CHESTNUTSNO LATEX RISK : DO YOU HAVE A PREVIOUS PERSONAL HISTORY OF MORE THAN NINE SURGERIES, SPINA BIFIDA, OR REPEATED CATHERTIZATIONS? NO LATEX RISK : ARE YOU FREQUENTLY EXPOSED TO LATEX PRODUCTS IN YOUR OCCUPATION?NO DATE ASKED : 01/07/2019 ALCOHOL SCREENING DID YOU HAVE A DRINK CONTAINING ALCOHOL IN THE PAST YEAR?NO POINTS0 INTERPRETATIONNEGATIVE [employer] [id number] NONE LANGUAGE LANGUAGES SPOKEN:[place] LEARNING BARRIERS / SPECIAL NEEDS BARRIERS TO LEARNING?NO HEARING IMPAIRED?NO VISION IMPAIRED?NO COGNITIVELY IMPAIRED?NO READINESS TO LEARN?YES LEARNING PREFERENCES?YES :DEMONSTRATION/VERBAL INSTRUCTION LEARNING CAPABILITIES PRESENT?YES EMOTIONAL BARRIERS?NO SPECIAL DEVICES?NO DIRECTOR GROUP SALES NEEDED?NO DOMESTIC VIOLENCE DO YOU FEEL SAFE IN YOUR ENVIRONMENT?YES PAIN CLINIC PFS, CLERGY, PUBLIC HEALTH REFERRALS PFS REFERRAL NEEDED?NO CLERGY REFERRAL NEEDED?NO PUBLIC HEALTH REFERRAL NEEDED?NO WAS THE PROVIDER NOTIFIED OF ANY PERTINENT INFO? N/A HAS THE PATIENT BEEN EDUCATED REGARDING HIS/HER PLAN OF CARE?YES HAS THE PATIENT BEEN EDUCATED REGARDING PAIN, THE RISK FOR PAIN, THE IMPORTANCE OF EFFECTIVE PAIN MANAGEMENT, AND THE PAIN ASSESSMENT PROCESS?YES ADVANCE DIRECTIVE ADVANCE DIRECTIVE DISCUSSED WITH PATIENT:YES 01/07/19 PT HAS NO ADVANCED DIRECTIVES, DECLINES INFORMATION OR ASSISTANCE AT THIS TIME. AD REVIEWED WITH PT 10/08/18 0953 LAS01/07/19 REVIEWED WITH PT. AD. HOSPITALIZATION/MAJOR DIAGNOSTIC PROCEDURE SURGERIES INTESTINAL INFECTION REVIEW OF SYSTEMS REVIEWED BY: PROVIDER: BRYAN Brewster CONSTITUTIONAL: ANY CHANGE IN YOUR MEDICAL CONDITION? NO . CHILLS NO . FEVER NO . INFECTION: DO YOU HAVE NEW INFECTIONS? NO . DO YOU HAVE HISTORY OF MRSA? NO . MUSCULOSKELETAL: ANY NEW PATTERNS OF PAIN OR NUMBNESS? NO . GASTROENTEROLOGY: ANY NEW CHANGE IN BOWEL CONTROL? NO . GENITOURINARY: ANY NEW CHANGE IN BLADDER CONTROL? NO . IS THERE A CHANCE YOU COULD BE ? NO . HEMATOLOGY/LYMPH: DO YOU TAKE ANY BLOOD THINNERS? (FOR EXAMPLE- COUMADIN, PLAVIX, AGGRENOX, PLATEL, PRADAXA, OR XARELTO) NO . WHEN WAS YOUR LAST DOSE? DATE: TIME: . NEUROLOGY: HAVE YOU FALLEN IN THE PAST 12 MONTHS? NO . ANY NEW EXTREMITY NUMBNESS OR WEAKNESS? NO . CARDIOLOGY: DO YOU HAVE A PACEMAKER OR DEFIBRILLATOR? NO . RESPIRATORY: HAVE YOU BEEN SICK IN THE PAST WEEK? NO . FEVER NO . FLU LIKE SYMPTOMS? NO . COUGH NO . INTEGUMENTARY: DO YOU HAVE ANY RASHES OR OPEN SORES? NO . ALLERGIC/IMMUNO: ARE YOU ALLERGIC TO IV DYE? NO . ANY NEW ALLERGIES? NO . PSYCHIATRIC: DO YOU HAVE THOUGHTS OF HURTING YOURSELF OR SOMEONE ELSE? NO . ARE YOU ABUSED, NEGLECTED, OR IN AN UNSAFE ENVIRONMENT? NO . ENDOCRINOLOGY: ARE YOU DIABETIC? YES . OTHER: DO YOU NEED ANY PRESCRIPTIONS? YES . IF YES, PLEASE LIST: IBUPROFEN, SOMA . ANY NEW PROBLEMS WITH YOUR MEDICATIONS? NO . WHEN DID YOU LAST EAT? ____ . WHEN DID YOU LAST DRINK? ____ . WHAT DID YOU LAST DRINK? ____ . NAME OF PERSON DRIVING YOU HOME? ____ . DO YOU HAVE ANY OTHER QUESTIONS OR CONCERNS NO . VITAL SIGNS WT 144 LBS, HT 62 IN, BMI 26.34 INDEX, BP 138/64 MM HG, HR 76 /MIN, RR 16 /MIN, TEMP 98.5 F, OXYGEN SAT % 94%, SAFE IN ENV? (Y/N) Y, NA INITIALS AW 0953, REVIEWED BY: COLTON. EXAMINATION GENERAL EXAMINATION: GENERAL APPEARANCE:NO ACUTE DISTRESS, WELL NOURISHED AND HYDRATED. LUNGS:CLEAR TO AUSCULTATION BILATERALLY, NO WHEEZES, RHONCHI, RALES. HEART:NO MURMURS, REGULAR RATE AND RHYTHM. BACK: TENDER TO TOUCH ALONG ENTIRE BACK FROM SLR NEG BILATERAL REFLEXES 2+. ASSESSMENTS LUMBAR FACET ARTHROPATHY - M46.96 (PRIMARY) TREATMENT LUMBAR FACET ARTHROPATHY CONTINUE IBUPROFEN TABLET, 600 MG, 1 TABLET, ORALLY, BID PRN PAIN WITH FOOD MDD=2, 30 DAYS, 60, REFILLS 1 CONTINUE SOMA TABLET, 350 MG, 1 TABLET, ORALLY, THREE TIMES DAILY NEEDED PRN SPASM MDD=3, 30 DAYS, 90, REFILLS 0 CLINICAL NOTES: ISTOP REGISTRY REVIEWED AND DEMONSTRATES COMPLLIANCE. (REF #[id number] ) BRINGS IN MEDICATIONS WHICH IS APPROPRIATE FOR WHAT WAS DISPENSED. RECENT URINE TOXICOLOGY REVIEWED. NO UNAUTHORIZED MEDICATIONS. NO ILLICIT SUBSTANCES AND PRESCRIBED MEDICATIONS WERE PRESENT. , EPISCOPAL PAIN CENTER NARCOTIC AGREEMENT WAS REVIEWED AND SIGNED TODAY BY THE PATIENT. SEE ATTACHED DOCUMENT FOR FULL DETAILS; SPECIFIC ISSUES WERE REVIEWED: 1) KEEP PAIN MEDS IN THEIR ORIGINAL BOTTLES AND ANY WEEKLY PLANNERS ARE TO BE BROUGHT TO THE PAIN CENTER AT EVERY VISIT. 2) THE PATIENT IS NOT TO INCREASE DOSING OR TIMING OF THEIR PAIN MEDICATION WITHOUT SPECIFIC DIRECTION OF THEIR PAIN CENTERPROVIDER (NOT ER OR OTHER PROVIDERS). 3) ALL PAIN MEDS ARE TO BE KEPT SECURED, IN A LOCKED BOX. 4) NO PAIN MEDS ARE TO BE SHARED WITH ANY OTHER PERSON FOR ANY REASON. 5) NO PAIN MEDS MAY BE TAKEN FROM ANY FRIENDS OR RELATIVES FOR ANY REASON 6) NO MEDS OR SUBSTANCES WHICH ARE NOT LEGAL ARE TO BE USED- NO MARIJUANA, NO COCAINE, AMPHETAMINES, HEROIN, OR OTHERS ARE EVER TO BE USED. 7)URINE TESTING IS DONE TO ACCOUNT FOR MEDS AND SUBSTANCES BEING TAKEN AND WILL BE DONE RANDOMLY. PROCEDURE CODES FA211 ESTABILISHED PATIENT [facility] CHARGE DISPOSITION & COMMUNICATION FOLLOW UP 3 MONTHS ELECTRONICALLY SIGNED BY ROS DAVID ON 01/08/2019 AT 04:48 PM EDT DISCLAIMER : THIS IS A VISIT SUMMARY EXTRACTED FROM THE [email or web address] CHART. IT IS NOT A COPY OF THE [employer] PROGRESS NOTE. NAZANIN
== END ==
LOC: M PAIN 09:30
PROVIDERS: ATTEND Nurse Practitioner Family
DX: M46.96 Unspecified inflammatory spondylopathy, lumbar region (principal); I10 Essential (primary) hypertension; F41.9 Anxiety disorder, unspecified; E11.9 Type 2 diabetes mellitus without complications; J44.9 Chronic obstructive pulmonary disease, unspecified; E78.5 Hyperlipidemia, unspecified; D64.9 Anemia, unspecified; H04.123 Dry eye syndrome of bilateral lacrimal glands; M25.551 Pain in right hip; M25.552 Pain in left hip; Z98.41 Cataract extraction status, right eye; Z98.42 Cataract extraction status, left eye; Z96.1 Presence of intraocular lens; Z79.82 Long term (current) use of aspirin; Z79.899 Other long term (current) drug therapy; Z88.0 Allergy status to penicillin; Z88.2 Allergy status to sulfonamides; Z88.5 Allergy status to narcotic agent; Z88.8 Allergy status to other drugs, medicaments and biological substances; Z79.84 Long term (current) use of oral hypoglycemic drugs

== ENCOUNTER → 2019-04-17 | Outpatient (REF) | payer BC | LOC: M LAB LCGH 15:07 | PROVIDERS: ATTEND Physician Assistant | DX: D48.5 Neoplasm of uncertain behavior of skin (principal) ==

== ENCOUNTER → 2019-05-05 | Outpatient (CLI) | payer BC ==
--- NOTE | 2019-05-21 01:02 | ECWPNPC ---
PATIENT NAME: ANGELIA MCNEIL : 1950 GENDER: FEMALE VISIT DATE: 05/05/2019 DISCHARGE DATE: 05/05/19 1049 VISIT LOCKED DATE TIME: PHYSICIAN: MARINA STARKEY RESOURCE: MARINA STARKEY REASON FOR APPOINTMENT 1. BACK HISTORY OF PRESENT ILLNESS HISTORY OF PRESENT ILLNESS: HERE FOR F/U OF CHRONIC GENERALIZED PAIN.RATING PAIN VAS 10/10.CURRENTLY TAKING DRONABINOL ,IBUPROFEN AND SOMA.HISTORY OF MULTIPLE DRUG ALLERGIES ECSPECIALLY WITH PAIN MEDICATION.FINDS CURRENT MEDICATION EFFECTIVE AT REDUCING PAIN AND KEEPING HER COMFORTABLE .DENIES SIDE EFFECTS.REPORTING AN INCREASE IN BILAT. SHOULDER PAIN LATELY. PAIN THE PATIENT DESCRIBES THE PAIN... THE PATIENT DESCRIBES THE PAIN... FALL RISK SCREENING: SCREENING :NO FALLS REPORTED IN THE LAST YEAR CURRENT MEDICATIONS TAKING LORAZEPAM 1 MG TABLET 1 ORALLY 3 TIMES DAILY NEEDED TAKING OMEPRAZOLE 40 MG CAPSULE DELAYED RELEASE 1 CAPSULE ORALLY ONCE A DAY TAKING SYMBICORT 160-4.5 MCG/ACT AEROSOL 2 PUFFS INHALATION TWICE A DAY TAKING MAGNESIUM 400 MG TABLET 1 TABLET WITH A MEAL ORALLY BID TAKING RESTASIS 0.05 % EMULSION 1 INTO AFFECTED EYE OPHTHALMIC TWICE A DAY TAKING PRAVACHOL 40 MG TABLET 1 TABLET ORALLY ONCE A DAY TAKING ACIDOPHILUS - CAPSULE ORALLY BID TAKING B-12 5000 MCG CAPSULE ORALLY DAILY TAKING ASPIRIN 81 81 MG TABLET CHEWABLE 1 TABLET ORALLY ONCE A DAY TAKING VITAMIN E 400 UNIT CAPSULE 1 CAPSULE ORALLY ONCE A DAY TAKING FOLIC ACID 1 MG TABLET 1 TABLET ORALLY ONCE A DAY TAKING HYDRALAZINE HCL 50 MG TABLET 1 TABLET WITH FOOD ORALLY BID TAKING LABETALOL HCL 200 MG TABLET 1 TABLET ORALLY TWICE A DAY TAKING FELODIPINE ER 5 MG TABLET EXTENDED RELEASE 24 HOUR 1 TABLET ORALLY ONCE A DAY TAKING JANUMET XR 50-500 MG TABLET EXTENDED RELEASE 24 HOUR 1 TAB ORALLY ONCE A DAY TAKING VITAMIN D-3 5000 UNIT TABLET 1 TABLET ORALLY ONCE A DAY TAKING DULOXETINE HCL 30 MG CAPSULE DELAYED RELEASE PARTICLES 1 CAPSULE ORALLY TWICE A DAY TAKING SOMA 350 MG TABLET 1 TABLET ORALLY THREE TIMES DAILY NEEDED PRN SPASM MDD=3 TAKING IBUPROFEN 600 MG TABLET 1 TABLET ORALLY BID PRN PAIN WITH FOOD MDD=2 TAKING DRONABINOL 5 MG CAPSULE 1 CAPSULE BEFORE LUNCH AND SUPPER ORALLY TWICE A DAY MDD=2 TAKING LEVOCETIRIZINE DIHYDROCHLORIDE 5 MG TABLET 1 TABLET IN THE EVENING ORALLY ONCE A DAY TAKING POTASSIUM CHLORIDE ER 10 MEQ CAPSULE EXTENDED RELEASE 1 CAPSULE WITH FOOD ORALLY TWICE A DAY NOT-TAKING METFORMIN HCL 500 MG TABLET 1 TABLET WITH MEALS ORALLY TWICE A DAY NOT-TAKING HYDROXYZINE HCL 25 MG TABLET 2 TABLET NEEDED ORALLY EVERY 8 HRS NOT-TAKING TENORMIN 50 MG TABLET 1 TABLET ORALLY ONCE A DAY NOT-TAKING L-LYSINE 500 MG TABLET ORALLY NOT-TAKING BIOTIN 10 MG CAPSULE ORALLY NOT-TAKING IRON (FERROUS GLUCONATE) 325 MG TABLET ORALLY NOT-TAKING LOSARTAN POTASSIUM 50 MG TABLET 1 TABLET ORALLY ONCE A DAY NOT-TAKING SPIRONOLACTONE 25 MG TABLET 1 TABLET ORALLY ONCE A DAY NOT-TAKING VALSARTAN 80 MG TABLET 1 TABLET ORALLY ONCE A DAY NOT-TAKING BUSPAR 10 MG TABLET 2 TABLET ORALLY ONCE A DAY NOT-TAKING BUTRANS 5 MCG/HR PATCH WEEKLY 1 PATCH TO SKIN TRANSDERMAL APPLY TO SHOULDERQ 7 DAYS MDD=1, NOTES: UNABLE TO TOLERATE NOT-TAKING NUCYNTA 75 MG TABLET 1 TABLET ORALLY EVERY 6 - 8 HRS PRN PAIN MDD=3 NOT-TAKING AMITRIPTYLINE HCL 50 MG TABLET 1 TABLET ORALLY FOUR TIMES A DAY NOT-TAKING NORCO 10-325 MG TABLET 1 TABLET NEEDED ORALLY EVERY 6 - 8 HOURS PRN PAIN MDD=3 NOT-TAKING IRON 1 TAB ORAL DAILY NOT-TAKING ESTRADIOL 1 MG TABLET 1 TABLET ORALLY EVERY OTHER DAY, NOTES: WEANING OFF NOT-TAKING CALCIUM 1200 MG TABLET 1 TABLET WITH MEALS ORALLY TWICE A DAY NOT-TAKING PERPHENAZINE-AMITRIPTYLINE 4-50 MG TABLET 1 TABLET ORALLY TWICE A DAY NOT-TAKING TRULICITY 0.75 MG/0.5ML SOLUTION PEN-INJECTOR SUBCUTANEOUS NOT-TAKING STOOL SOFTENER 100 MG CAPSULE 1 CAPSULE NEEDED ORALLY ONCE A DAY NOT-TAKING BENADRYL 25 MG CAPSULE 1 CAPSULE NEEDED ORALLY EVERY 8 HRS NOT-TAKING VITAMIN C 500 MG CAPSULE ORALLY DAILY MEDICATION LIST REVIEWED AND RECONCILED WITH THE PATIENT PAST MEDICAL HISTORY HYPERTENSION ANXIETY DIABETES COPD CERVICAL CANCER HYPERLIPIDEMIA ANEMIA BACK PAIN DRY EYES BILATERAL HIP PAIN ALLERGIES MORPHINE SULFATE: ITCHING - ALLERGY PENICILLIN (FOR ALLERGIES USE ONLY): HIVES - ALLERGY SULFA (FOR ALLERGY USE ONLY): HIVES - ALLERGY TIZANIDINE HCL: EXCESSIVE SLEEPINESS - CONTRAINDICATION HYDROCODONE-ACETAMINOPHEN: ITCHING - ALLERGY BUPRENORPHINE: LIGHT HEAD / DIZZY OXYCODONE HCL: ITCHING - ALLERGY NUCYNTA: ITCHING - ALLERGY LOSARTAN POTASSIUM-HCTZ: SKIN REACTION SURGICAL HISTORY [place] 1988 HYSTERECTOMY 1980 BILATERAL CATARACT WITH LENS IMPLANTS FAMILY HISTORY FATHER: MOTHER: SIBLINGS: ALIVE, DIAGNOSED WITH DIABETES, HYPERTENSION SON(S): ALIVE, DIABETES, HYPERTENSION SOCIAL HISTORY GENERAL: TOBACCO USE ARE YOU A:NONSMOKER PAIN CLINIC PFS, CLERGY, PUBLIC HEALTH REFERRALS PFS REFERRAL NEEDED?NO CLERGY REFERRAL NEEDED?NO PUBLIC HEALTH REFERRAL NEEDED?NO WAS THE PROVIDER NOTIFIED OF ANY PERTINENT INFO? N/A HAS THE PATIENT BEEN EDUCATED REGARDING HIS/HER PLAN OF CARE?YES HAS THE PATIENT BEEN EDUCATED REGARDING PAIN, THE RISK FOR PAIN, THE IMPORTANCE OF EFFECTIVE PAIN MANAGEMENT, AND THE PAIN ASSESSMENT PROCESS?YES LATEX QUESTIONNAIRE LATEX ALLERGY : HAVE YOU EVER DEVELOPED ANY TYPE OF REACTION AFTER HANDLING LATEX PRODUCTS SUCH RUBBER GLOVES, CONDOMS, DIAPHRAGMS, BALLOONS, SOCKS, OR UNDERWEAR?NO LATEX ALLERGY : HAVE YOU EVER DEVELOPED ANY TYPE OF REACTION DURING OR AFTER DENTAL APPOINTMENT, VAGINAL/RECTAL EXAMINATION, SURGICAL PROCEDURE, OR ANY OTHER EXPOSURE?NO LATEX RISK : HAVE YOU EVER HAD ANY DIFFICULTY BREATHING OR HIVES AFTER EATING OR HANDLING ANY FRUITS, OR VEGETABLES; SUCH KIWI, BANANAS, STONE FRUITS, OR CHESTNUTSNO LATEX RISK : DO YOU HAVE A PREVIOUS PERSONAL HISTORY OF MORE THAN NINE SURGERIES, SPINA BIFIDA, OR REPEATED CATHERIZATIONS? NO LATEX RISK : ARE YOU FREQUENTLY EXPOSED TO LATEX PRODUCTS IN YOUR OCCUPATION?NO DATE ASKED : 01/07/2019 ADVANCE DIRECTIVE ADVANCE DIRECTIVE DISCUSSED WITH PATIENT:YES 05/05/19 PT HAS NO ADVANCED DIRECTIVES, DECLINES INFORMATION OR ASSISTANCE AT THIS TIME. STATES SHE HAS THE INFORMATION LAS CONFUCIANISM [id number] NONE LANGUAGE LANGUAGES SPOKEN:MACANESE DOMESTIC VIOLENCE DO YOU FEEL SAFE IN YOUR ENVIRONMENT?YES ALCOHOL SCREENING DID YOU HAVE A DRINK CONTAINING ALCOHOL IN THE PAST YEAR?NO POINTS0 INTERPRETATIONNEGATIVE LEARNING BARRIERS / SPECIAL NEEDS BARRIERS TO LEARNING?NO HEARING IMPAIRED?NO VISION IMPAIRED?NO COGNITIVELY IMPAIRED?NO READINESS TO LEARN?YES LEARNING PREFERENCES?YES :DEMONSTRATION/VERBAL INSTRUCTION LEARNING CAPABILITIES PRESENT?YES EMOTIONAL BARRIERS?NO SPECIAL DEVICES?NO ELECTRONIC SECURITY SPECIALIST NEEDED?NO REVIEWED WITH PT 10/08/18 0972 LAS01/07/19 REVIEWED WITH PT. ADREVIEWED WITH PT 05/05/19 1000 LAS. HOSPITALIZATION/MAJOR DIAGNOSTIC PROCEDURE SURGERIES INTESTINAL INFECTION REVIEW OF SYSTEMS REVIEWED BY: PROVIDER: MARINA SOMMER . CONSTITUTIONAL: ANY CHANGE IN YOUR MEDICAL CONDITION? NO . CHILLS NO . FEVER NO . INFECTION: DO YOU HAVE NEW INFECTIONS? NO . DO YOU HAVE HISTORY OF MRSA? NO . MUSCULOSKELETAL: ANY NEW PATTERNS OF PAIN OR NUMBNESS? YES PT REPORTS AN INCREASED PAIN IN BOTH SHOULDERS. SHE HAD INJECTIONS OF BOTH SHOULDERS AT THE [facility] 03/31/19, PT STATES THEY WERE INEFFECTIVE. . GASTROENTEROLOGY: ANY NEW CHANGE IN BOWEL CONTROL? NO . GENITOURINARY: ANY NEW CHANGE IN BLADDER CONTROL? NO . IS THERE A CHANCE YOU COULD BE ? NO . HEMATOLOGY/LYMPH: DO YOU TAKE ANY BLOOD THINNERS? (FOR EXAMPLE- COUMADIN, PLAVIX, AGGRENOX, PLATEL, PRADAXA, OR XARELTO) NO . WHEN WAS YOUR LAST DOSE? DATE: TIME: . NEUROLOGY: HAVE YOU FALLEN IN THE PAST 12 MONTHS? NO . ANY NEW EXTREMITY NUMBNESS OR WEAKNESS? NO . CARDIOLOGY: DO YOU HAVE A PACEMAKER OR DEFIBRILLATOR? NO . RESPIRATORY: HAVE YOU BEEN SICK IN THE PAST WEEK? NO . FEVER NO . FLU LIKE SYMPTOMS? NO . COUGH NO . INTEGUMENTARY: DO YOU HAVE ANY RASHES OR OPEN SORES? NO . ALLERGIC/IMMUNO: ARE YOU ALLERGIC TO IV DYE? NO . ANY NEW ALLERGIES? NO . PSYCHIATRIC: DO YOU HAVE THOUGHTS OF HURTING YOURSELF OR SOMEONE ELSE? NO . ARE YOU ABUSED, NEGLECTED, OR IN AN UNSAFE ENVIRONMENT? NO . ENDOCRINOLOGY: ARE YOU DIABETIC? NO . OTHER: DO YOU NEED ANY PRESCRIPTIONS? NO . IF YES, PLEASE LIST: ____ . ANY NEW PROBLEMS WITH YOUR MEDICATIONS? NO . WHEN DID YOU LAST EAT? ____ . WHEN DID YOU LAST DRINK? ____ . WHAT DID YOU LAST DRINK? ____ . NAME OF PERSON DRIVING YOU HOME? ____ . DO YOU HAVE ANY OTHER QUESTIONS OR CONCERNS NO . VITAL SIGNS WT 138.8 LBS, HT 62 IN, BMI 25.38 INDEX, BP 122/59 MM HG, HR 80 /MIN, RR 16 /MIN, TEMP 97.3 F, OXYGEN SAT % 99%, SAFE IN ENV? (Y/N) YES, NA INITIALS AW 0951, REVIEWED BY: BONNY. EXAMINATION GENERAL EXAMINATION: GENERALAWAKE,ALERT ,PLEAASANT . PSYCHAFFECT NORMAL . LUNGS:LUNG DOWNS ARE CLEAR TO AUSCULTATION BILATERALLY. GOOD MOVEMENT OF AIR . HEART:S1, S2 IN A REGULAR RATE AND RHYTHM. NO SIGNIFICANT MURMURS, RUBS OR GALLOPS NOTED . ASSESSMENTS LUMBAR FACET ARTHROPATHY - M46.96 (PRIMARY) TREATMENT LUMBAR FACET ARTHROPATHY CONTINUE SOMA TABLET, 350 MG, 1 TABLET, ORALLY, THREE TIMES DAILY NEEDED PRN SPASM MDD=3 CONTINUE IBUPROFEN TABLET, 600 MG, 1 TABLET, ORALLY, BID PRN PAIN WITH FOOD MDD=2 CONTINUE DRONABINOL CAPSULE, 5 MG, 1 CAPSULE BEFORE LUNCH AND SUPPER, ORALLY, TWICE A DAY MDD=2 NOTES: PATIENT HAS TRIALED MULTIPLE DIFFERENT PAIN MEDICATIONS OVER THE YEARS AND HAS ONLY BEEN ABLE TO FIND SOME RELIEF WITHOUT SIDE EFFECTS WITH CURRENT CHRONIC PAIN MEDICATIONS IBUPROFEN,SOMA AND DRONABINOL.DISCUSSED CBD PRODUCTS [employer]RIE[employer]Y AND CAM ENCOURAGED HER TO TRY THESE AFTER RESEARCHING THEM AND DISCUSSING WITH HERBALIST PERHAPS AT [employer] OR PHARMACIES IN THE COMMUNITY.BRIEFLY DISCUSSED REFERRAL TO PALLIATIVE CARE FOR THEIR EXPERTISE IN ALTERNATIVES FOR CHRONIC PAIN MANAGEMENT.SHE HAS TRIALED INTERVENTIONS IN THE PAST HERE IE INJECTION THERAPY WITHOUT BENEFIT AND DOES NOT WISH TO USE THIS AVENUE FOR MORE TRIALS. PROCEDURE CODES FA211 ESTABILISHED PATIENT [facility] CHARGE DISPOSITION & COMMUNICATION FOLLOW UP 3 MONTHS (REASON: MED MGMNT) ELECTRONICALLY SIGNED BY ROS BUI ON 05/20/2019 AT 08:55 AM EDT DISCLAIMER : THIS IS A VISIT SUMMARY EXTRACTED FROM THE [employer] CHART. IT IS NOT A COPY OF THE [employer] PROGRESS NOTE. NAZANIN
== END ==
LOC: M PAIN 09:45
PROVIDERS: ATTEND Nurse Practitioner Family
DX: M46.96 Unspecified inflammatory spondylopathy, lumbar region (principal); G89.29 Other chronic pain; I10 Essential (primary) hypertension; Z86.59 Personal history of other mental and behavioral disorders; E11.9 Type 2 diabetes mellitus without complications; J44.9 Chronic obstructive pulmonary disease, unspecified; E78.5 Hyperlipidemia, unspecified; D50.9 Iron deficiency anemia, unspecified; Z88.0 Allergy status to penicillin; Z88.2 Allergy status to sulfonamides; Z88.5 Allergy status to narcotic agent; Z88.8 Allergy status to other drugs, medicaments and biological substances; Z79.82 Long term (current) use of aspirin; Z79.84 Long term (current) use of oral hypoglycemic drugs; Z79.899 Other long term (current) drug therapy

== ENCOUNTER → 2019-07-25 | Outpatient (CLI) | payer BC ==
--- NOTE | 2019-08-09 01:20 | ECWPNPC ---
PATIENT NAME: ANGELIA MCNEIL : 1950 GENDER: FEMALE VISIT DATE: 07/25/2019 DISCHARGE DATE: 07/25/19 1104 VISIT LOCKED DATE TIME: PHYSICIAN: MARINA STARKEY RESOURCE: MARINA STARKEY REASON FOR APPOINTMENT 1. DISCUSS MEDICATION OPTIONS HISTORY OF PRESENT ILLNESS HISTORY OF PRESENT ILLNESS: HERE FOR F/U OF CHRONIC GENERALIZED BODY PAIN. ACCOMPANIES HER IN EXAM ROOM.WAS HAVING ADEQUATE PAIN CONTROL WITH DRONABINOL 5MG BID.INSURANCE WILL NOT COVER FOR PAIN CONTROL.HERE TODAY TO DISCUSS ALTERNATIVE MEDICATIONS.HAS TRIALED NUCYNTA IN PAST AND HAD GOOD PAIN CONTROL BUT MAY HAVE HAD ITCHING AND STOPPED DUE TO THIS SIDE EFFECT.TODAY SHE FEELS THAT IT WAS RELATED TO SKIN CONDITION POSSIBLY AT TIME OF TRIAL.DISCUSSED POTENTIAL FOR SEVERE ANAPHYLACTIC REACTION AND EVEN AFTER TAKING A MEDIATION WITH POSSIBLE PREVIOUS ANYPHYLACTIC SIDE EFFECTS.RATING GENERALIZED BODY PAIN 10/10. PAIN THE PATIENT DESCRIBES THE PAIN... FALL RISK SCREENING: SCREENING :NO FALLS REPORTED IN THE LAST YEAR CURRENT MEDICATIONS TAKING LORAZEPAM 1 MG TABLET 1 ORALLY 3 TIMES DAILY NEEDED TAKING OMEPRAZOLE 40 MG CAPSULE DELAYED RELEASE 1 CAPSULE ORALLY ONCE A DAY TAKING SYMBICORT 160-4.5 MCG/ACT AEROSOL 2 PUFFS INHALATION TWICE A DAY TAKING RESTASIS 0.05 % EMULSION 1 INTO AFFECTED EYE OPHTHALMIC TWICE A DAY TAKING PRAVACHOL 40 MG TABLET 1 TABLET ORALLY ONCE A DAY TAKING ACIDOPHILUS - CAPSULE ORALLY BID TAKING B-12 5000 MCG CAPSULE ORALLY DAILY TAKING ASPIRIN 81 81 MG TABLET CHEWABLE 1 TABLET ORALLY ONCE A DAY TAKING VITAMIN E 400 UNIT CAPSULE 1 CAPSULE ORALLY ONCE A DAY TAKING FOLIC ACID 1 MG TABLET 1 TABLET ORALLY ONCE A DAY TAKING HYDRALAZINE HCL 50 MG TABLET 1 TABLET WITH FOOD ORALLY BID TAKING LABETALOL HCL 200 MG TABLET 1 TABLET ORALLY TWICE A DAY TAKING FELODIPINE ER 5 MG TABLET EXTENDED RELEASE 24 HOUR 1 TABLET ORALLY ONCE A DAY TAKING JANUMET XR 50-500 MG TABLET EXTENDED RELEASE 24 HOUR 1 TAB ORALLY ONCE A DAY TAKING VITAMIN D-3 5000 UNIT TABLET 1 TABLET ORALLY ONCE A DAY TAKING DULOXETINE HCL 30 MG CAPSULE DELAYED RELEASE PARTICLES 1 CAPSULE ORALLY TWICE A DAY TAKING LEVOCETIRIZINE DIHYDROCHLORIDE 5 MG TABLET 1 TABLET IN THE EVENING ORALLY ONCE A DAY TAKING POTASSIUM CHLORIDE ER 10 MEQ CAPSULE EXTENDED RELEASE 1 CAPSULE WITH FOOD ORALLY TWICE A DAY TAKING IBUPROFEN 600 MG TABLET 1 TABLET ORALLY BID PRN PAIN WITH FOOD MDD=2 TAKING SOMA 350 MG TABLET 1 TABLET ORALLY THREE TIMES DAILY NEEDED PRN SPASM MDD=3 TAKING DRONABINOL 5 MG CAPSULE 1 CAPSULE BEFORE LUNCH AND SUPPER ORALLY TWICE A DAY MDD=2 TAKING HYDROXYCHLOROQUINE 200 MG BID NOT-TAKING METFORMIN HCL 500 MG TABLET 1 TABLET WITH MEALS ORALLY TWICE A DAY NOT-TAKING HYDROXYZINE HCL 25 MG TABLET 2 TABLET NEEDED ORALLY EVERY 8 HRS NOT-TAKING TENORMIN 50 MG TABLET 1 TABLET ORALLY ONCE A DAY NOT-TAKING L-LYSINE 500 MG TABLET ORALLY NOT-TAKING BIOTIN 10 MG CAPSULE ORALLY NOT-TAKING IRON (FERROUS GLUCONATE) 325 MG TABLET ORALLY NOT-TAKING LOSARTAN POTASSIUM 50 MG TABLET 1 TABLET ORALLY ONCE A DAY NOT-TAKING SPIRONOLACTONE 25 MG TABLET 1 TABLET ORALLY ONCE A DAY NOT-TAKING VALSARTAN 80 MG TABLET 1 TABLET ORALLY ONCE A DAY NOT-TAKING BUSPAR 10 MG TABLET 2 TABLET ORALLY ONCE A DAY NOT-TAKING BUTRANS 5 MCG/HR PATCH WEEKLY 1 PATCH TO SKIN TRANSDERMAL APPLY TO SHOULDERQ 7 DAYS MDD=1, NOTES: UNABLE TO TOLERATE NOT-TAKING NUCYNTA 75 MG TABLET 1 TABLET ORALLY EVERY 6 - 8 HRS PRN PAIN MDD=3 NOT-TAKING AMITRIPTYLINE HCL 50 MG TABLET 1 TABLET ORALLY FOUR TIMES A DAY NOT-TAKING NORCO 10-325 MG TABLET 1 TABLET NEEDED ORALLY EVERY 6 - 8 HOURS PRN PAIN MDD=3 NOT-TAKING IRON 1 TAB ORAL DAILY NOT-TAKING ESTRADIOL 1 MG TABLET 1 TABLET ORALLY EVERY OTHER DAY, NOTES: WEANING OFF NOT-TAKING CALCIUM 1200 MG TABLET 1 TABLET WITH MEALS ORALLY TWICE A DAY NOT-TAKING PERPHENAZINE-AMITRIPTYLINE 4-50 MG TABLET 1 TABLET ORALLY TWICE A DAY NOT-TAKING TRULICITY 0.75 MG/0.5ML SOLUTION PEN-INJECTOR SUBCUTANEOUS NOT-TAKING STOOL SOFTENER 100 MG CAPSULE 1 CAPSULE NEEDED ORALLY ONCE A DAY NOT-TAKING BENADRYL 25 MG CAPSULE 1 CAPSULE NEEDED ORALLY EVERY 8 HRS NOT-TAKING VITAMIN C 500 MG CAPSULE ORALLY DAILY NOT-TAKING MAGNESIUM 400 MG TABLET 1 TABLET WITH A MEAL ORALLY BID MEDICATION LIST REVIEWED AND RECONCILED WITH THE PATIENT PAST MEDICAL HISTORY HYPERTENSION ANXIETY DIABETES COPD CERVICAL CANCER HYPERLIPIDEMIA ANEMIA BACK PAIN DRY EYES BILATERAL HIP PAIN ALLERGIES MORPHINE SULFATE: ITCHING - ALLERGY PENICILLIN (FOR ALLERGIES USE ONLY): HIVES - ALLERGY SULFA (FOR ALLERGY USE ONLY): HIVES - ALLERGY TIZANIDINE HCL: EXCESSIVE SLEEPINESS - CONTRAINDICATION HYDROCODONE-ACETAMINOPHEN: ITCHING - ALLERGY BUPRENORPHINE: LIGHT HEAD / DIZZY OXYCODONE HCL: ITCHING NUCYNTA: ITCHING - SIDE EFFECTS LOSARTAN POTASSIUM-HCTZ: SKIN REACTION SURGICAL HISTORY [place] 1988 HYSTERECTOMY 1980 BILATERAL CATARACT WITH LENS IMPLANTS FAMILY HISTORY FATHER: MOTHER: SIBLINGS: ALIVE, DIAGNOSED WITH DIABETES, HYPERTENSION SON(S): ALIVE, DIABETES, HYPERTENSION SOCIAL HISTORY GENERAL: TOBACCO USE ARE YOU A:NONSMOKER PAIN CLINIC PFS, CLERGY, PUBLIC HEALTH REFERRALS PFS REFERRAL NEEDED?NO CLERGY REFERRAL NEEDED?NO PUBLIC HEALTH REFERRAL NEEDED?NO WAS THE PROVIDER NOTIFIED OF ANY PERTINENT INFO? N/A HAS THE PATIENT BEEN EDUCATED REGARDING HIS/HER PLAN OF CARE?YES HAS THE PATIENT BEEN EDUCATED REGARDING PAIN, THE RISK FOR PAIN, THE IMPORTANCE OF EFFECTIVE PAIN MANAGEMENT, AND THE PAIN ASSESSMENT PROCESS?YES LATEX QUESTIONNAIRE LATEX ALLERGY : HAVE YOU EVER DEVELOPED ANY TYPE OF REACTION AFTER HANDLING LATEX PRODUCTS SUCH RUBBER GLOVES, CONDOMS, DIAPHRAGMS, BALLOONS, SOCKS, OR UNDERWEAR?NO LATEX ALLERGY : HAVE YOU EVER DEVELOPED ANY TYPE OF REACTION DURING OR AFTER DENTAL APPOINTMENT, VAGINAL/RECTAL EXAMINATION, SURGICAL PROCEDURE, OR ANY OTHER EXPOSURE?NO LATEX RISK : HAVE YOU EVER HAD ANY DIFFICULTY BREATHING OR HIVES AFTER EATING OR HANDLING ANY FRUITS, OR VEGETABLES; SUCH KIWI, BANANAS, STONE FRUITS, OR CHESTNUTSNO LATEX RISK : DO YOU HAVE A PREVIOUS PERSONAL HISTORY OF MORE THAN NINE SURGERIES, SPINA BIFIDA, OR REPEATED CATHERIZATIONS? NO LATEX RISK : ARE YOU FREQUENTLY EXPOSED TO LATEX PRODUCTS IN YOUR OCCUPATION?NO DATE ASKED : 01/07/2019 ADVANCE DIRECTIVE ADVANCE DIRECTIVE DISCUSSED WITH PATIENT:YES HCP - HARLEEN MCNEIL () ORTHODOXY [id number] NONE LANGUAGE LANGUAGES SPOKEN:CITIZEN OF [place] DOMESTIC VIOLENCE DO YOU FEEL SAFE IN YOUR ENVIRONMENT?YES ALCOHOL SCREENING DID YOU HAVE A DRINK CONTAINING ALCOHOL IN THE PAST YEAR?NO POINTS0 INTERPRETATIONNEGATIVE RECREATIONAL DRUG USE DRUG USE?NO LEARNING BARRIERS / SPECIAL NEEDS BARRIERS TO LEARNING?NO HEARING IMPAIRED?NO VISION IMPAIRED?NO COGNITIVELY IMPAIRED?NO READINESS TO LEARN?YES LEARNING PREFERENCES?YES :DEMONSTRATION/VERBAL INSTRUCTION LEARNING CAPABILITIES PRESENT?YES EMOTIONAL BARRIERS?NO SPECIAL DEVICES?NO RUG INSPECTOR HELPER NEEDED?NO REVIEWED WITH PT 10/08/18 0953 LAS01/07/19 REVIEWED WITH PT. JORJEWED WITH PT 05/05/19 1000 LASREVIEWED WITH PATIENT 07/25/19 1030 MAXIMILIAN. HOSPITALIZATION/MAJOR DIAGNOSTIC PROCEDURE SURGERIES INTESTINAL INFECTION REVIEW OF SYSTEMS REVIEWED BY: PROVIDER: MARINA SOMMER . CONSTITUTIONAL: ANY CHANGE IN YOUR MEDICAL CONDITION? NO . CHILLS NO . FEVER NO . INFECTION: DO YOU HAVE NEW INFECTIONS? NO . DO YOU HAVE HISTORY OF MRSA? NO . MUSCULOSKELETAL: ANY NEW PATTERNS OF PAIN OR NUMBNESS? NO . GASTROENTEROLOGY: ANY NEW CHANGE IN BOWEL CONTROL? NO . GENITOURINARY: ANY NEW CHANGE IN BLADDER CONTROL? NO . IS THERE A CHANCE YOU COULD BE ? NO . HEMATOLOGY/LYMPH: DO YOU TAKE ANY BLOOD THINNERS? (FOR EXAMPLE- COUMADIN, PLAVIX, AGGRENOX, PLATEL, PRADAXA, OR XARELTO) NO . WHEN WAS YOUR LAST DOSE? DATE: TIME: . NEUROLOGY: HAVE YOU FALLEN IN THE PAST 12 MONTHS? NO . ANY NEW EXTREMITY NUMBNESS OR WEAKNESS? YES, STATES WEAKNESS AND SORENESS TO BILATERAL SHOULDERS AND ARMS . CARDIOLOGY: DO YOU HAVE A PACEMAKER OR DEFIBRILLATOR? NO . RESPIRATORY: HAVE YOU BEEN SICK IN THE PAST WEEK? NO . FEVER NO . FLU LIKE SYMPTOMS? NO . COUGH NO . INTEGUMENTARY: DO YOU HAVE ANY RASHES OR OPEN SORES? NO . ALLERGIC/IMMUNO: ARE YOU ALLERGIC TO IV DYE? NO . ANY NEW ALLERGIES? NO . PSYCHIATRIC: DO YOU HAVE THOUGHTS OF HURTING YOURSELF OR SOMEONE ELSE? NO . ARE YOU ABUSED, NEGLECTED, OR IN AN UNSAFE ENVIRONMENT? NO . ENDOCRINOLOGY: ARE YOU DIABETIC? YES . OTHER: DO YOU NEED ANY PRESCRIPTIONS? YES . IF YES, PLEASE LIST: ____IBUPROFEN, SOMA, AND SOMETHING FOR PAIN . ANY NEW PROBLEMS WITH YOUR MEDICATIONS? NO . WHEN DID YOU LAST EAT? ____ . WHEN DID YOU LAST DRINK? ____ . WHAT DID YOU LAST DRINK? ____ . NAME OF PERSON DRIVING YOU HOME? ____ . DO YOU HAVE ANY OTHER QUESTIONS OR CONCERNS NO . VITAL SIGNS WT 137 LBS, HT 62 IN, BMI 25.05 INDEX, BP 177/76 MM HG, REPEAT BP 152/82 MANUAL, HR 67 /MIN, RR 16 /MIN, TEMP 96.7 F, OXYGEN SAT % 95%, SAFE IN ENV? (Y/N) YES, NA INITIALS RI 10:23, REVIEWED BY: MAXIMILIAN. EXAMINATION GENERAL EXAMINATION: GENERALAWAKE,ALERT ,PLEAASANT . PSYCHAFFECT NORMAL . LUNGS:LUNG DOWNS ARE CLEAR TO AUSCULTATION BILATERALLY. GOOD MOVEMENT OF AIR . HEART:S1, S2 IN A REGULAR RATE AND RHYTHM. NO SIGNIFICANT MURMURS, RUBS OR GALLOPS NOTED . 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 BRINGS IN MEDICATIONS WHICH IS APPROPRIATE FOR WHAT WAS DISPENSED. RECENT URINE TOXICOLOGY REVIEWED. NO UNAUTHORIZED MEDICATIONS. NO ILLICIT SUBSTANCES AND PRESCRIBED MEDICATIONS WERE PRESENT. , RISKS OF NARCOTIC/OPIOD MEDICATIONS INCLUDES BUT IS NOT LIMITED TO RISK OF DEPENDANCE/DEVELOPMENT OF ADDICTION, MOOD DISTURBANCE AND DEPRESSION, OSTEOPOROSIS, HORMONAL AND LABIDAL CHANGES, RESPIRATORY DEPRESSION AND . PATIENT IS ADVISED NOT TO DRIVE OR DRINK ALCOHOL WHILE ON THESE MEDICATIONS. PREVENTIVE MEDICINE PAIN CLINIC TEACHING: MEDICATIONS PRINTED AND REVIEWED INFORMATION ON NEW MEDICATION, NUCYNTA, WITH PATIENT. DISCUSSED CALLING US IF ANY SIDE EFFECTS OCCUR AND STOPPING THE MEDICATION AND GOING TO THE ER IF ANY SERIOUS SIDE EFFECTS, SUCH DIFFICULTY BREATHING, OCCUR. PATIENT VERBALIZED AN UNDERSTANDING. ANMOL GERMAIN 07/25/2019 11:07:08 AM > . PROCEDURE CODES FA211 ESTABILISHED PATIENT [facility] CHARGE DISPOSITION & COMMUNICATION FOLLOW UP F/U W NE FOR FUTURE VISITS, 6 WEEKS (REASON: MED MNT MARINA) ELECTRONICALLY SIGNED BY ROS BUI ON 08/08/2019 AT 12:05 PM EST DISCLAIMER : THIS IS A VISIT SUMMARY EXTRACTED FROM THE [employer] CHART. IT IS NOT A COPY OF THE [employer] PROGRESS NOTE. NAZANIN
== END ==
LOC: M PAIN 09:45
PROVIDERS: ATTEND Nurse Practitioner Family
DX: M46.96 Unspecified inflammatory spondylopathy, lumbar region (principal); M15.9 Polyosteoarthritis, unspecified; G89.29 Other chronic pain; I10 Essential (primary) hypertension; Z86.59 Personal history of other mental and behavioral disorders; E11.9 Type 2 diabetes mellitus without complications; J44.9 Chronic obstructive pulmonary disease, unspecified; E78.5 Hyperlipidemia, unspecified; Z88.0 Allergy status to penicillin; Z88.2 Allergy status to sulfonamides; Z88.5 Allergy status to narcotic agent; Z88.8 Allergy status to other drugs, medicaments and biological substances; Z79.82 Long term (current) use of aspirin; Z79.84 Long term (current) use of oral hypoglycemic drugs; Z79.899 Other long term (current) drug therapy

== ENCOUNTER → 2019-10-17 | Outpatient (CLI) | payer BC ==
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
== END ==
LOC: M PAIN 10:15
PROVIDERS: ATTEND Nurse Practitioner Family
DX: M46.96 Unspecified inflammatory spondylopathy, lumbar region (principal); M15.9 Polyosteoarthritis, unspecified; G89.29 Other chronic pain; I10 Essential (primary) hypertension; Z86.59 Personal history of other mental and behavioral disorders; E11.9 Type 2 diabetes mellitus without complications; J44.9 Chronic obstructive pulmonary disease, unspecified; E78.5 Hyperlipidemia, unspecified; Z88.0 Allergy status to penicillin; Z88.2 Allergy status to sulfonamides; Z88.5 Allergy status to narcotic agent; Z88.8 Allergy status to other drugs, medicaments and biological substances; Z79.82 Long term (current) use of aspirin; Z79.84 Long term (current) use of oral hypoglycemic drugs; Z79.899 Other long term (current) drug therapy

== ENCOUNTER → 2020-01-12 | Outpatient (CLI) | payer BC ==
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
== END ==
LOC: M PAIN 10:00
PROVIDERS: ATTEND Nurse Practitioner Family
DX: G89.29 Other chronic pain (principal)

== ENCOUNTER → 2021-01-17 | Outpatient (CLI) | payer MEDICARE, BC ==
--- NOTE | 2021-01-17 10:09 | REP ---
INDICATION: UNSP OPEN WOUND OF LEFT GREAT TOE COMPARISON: None. TECHNIQUE: AP, lateral, bilateral oblique views left 1st toe. FINDINGS: Nondisplaced acute intra-articular corner fracture at the base of the distal phalanx with overlying soft tissue injury. IMPRESSION: Acute intra-articular corner fracture at the base of the distal phalanx with overlying soft tissue injury. <Electronically signed by Yunior Olmos > 01/17/21 [id number]
== END ==
LOC: M WUC 09:35
PROVIDERS: ATTEND Physician Assistant
DX: S91.202A Unspecified open wound of left great toe with damage to nail, initial encounter (principal); W18.30XA Fall on same level, unspecified, initial encounter; Y92.009 Unspecified place in unspecified non-institutional (private) residence as the place of occurrence of the external cause

== ENCOUNTER → 2021-01-28 | Outpatient (CLI) | payer MEDICARE, BC ==
[2021-01-28 16:18] LABS: HEMATOCRIT 29.5 % (36.0-47.0); HEMOGLOBIN 8.3 g/dl (12.0-15.5); MEAN CORPUSCULAR HEMOGLOBIN 23.1 pg (27.0-33.0); MEAN CORPUSCULAR HGB CONC 28.1 g/dl (32.0-36.5); MEAN CORPUSCULAR VOLUME 82.2 fl (80.0-96.0); PLATELET COUNT, AUTOMATED 301 10^3/uL (150-450); RED BLOOD COUNT 3.59 10^6/uL (4.00-5.40); WHITE BLOOD COUNT 8.9 10^3/uL (4.0-10.0)
[2021-01-28 17:00] LABS: ALBUMIN 3.6 GM/DL (3.2-5.2); BILIRUBIN,TOTAL 0.2 MG/DL (0.2-1.0); CALCIUM LEVEL 9.6 MG/DL (8.8-10.2); CREATININE FOR GFR 1.32 MG/DL (0.55-1.30); GLOMERULAR FILTRATION RATE 42.1 (>39); POTASSIUM SERUM 4.7 MEQ/L (3.5-5.1); TOTAL PROTEIN 6.5 GM/DL (6.4-8.2)
== END ==
LOC: M WUC 13:50
PROVIDERS: ATTEND Internal Medicine Cardiovascular Disease
DX: D64.9 Anemia, unspecified (principal); E11.9 Type 2 diabetes mellitus without complications

== ENCOUNTER → 2021-01-28 | Outpatient (CLI) | payer MEDICARE, BC ==
--- NOTE | 2021-01-28 14:49 | REP ---
INDICATION: PAIN COMPARISON: 01/17/2021. TECHNIQUE: Four views left 1st toe. FINDINGS: There is no change in the intra-articular fracture at the base of the 1st distal phalanx medially. It is slightly displaced. No new fracture or dislocation is seen. IMPRESSION: Stable intra-articular fracture base of 1st distal phalanx. <Electronically signed by Juan Carr > 01/28/21 1327
== END ==
LOC: M WUC 13:09
PROVIDERS: ATTEND Physician Assistant
DX: M79.675 Pain in left toe(s) (principal); D64.9 Anemia, unspecified; E11.9 Type 2 diabetes mellitus without complications

== ENCOUNTER → 2021-02-23 | Outpatient (CLI) | payer MEDICARE, BC ==
[~2021-02-23] MED LIST changes: +BUSP10TA; +BUSP10TA PO; +CALC500T31 PO; +DULO1CAP6; +FELO5TAB26; +GABA-282; +HYDR-3363; +HYDR-3911; +JANU100T; +LABE20TAB; +LEVOTAB10; +LORAPOW30; +MAGN500C2 PO; +PANT40TA29; +PRAV40TA2; +PRAV40TA2 PO; +[UNRECOGNIZED DRUG - CODE] PO
[2021-02-23 20:18] LABS: HEMATOCRIT 32.2 % (36.0-47.0); HEMOGLOBIN 9.1 g/dl (12.0-15.5); MEAN CORPUSCULAR HEMOGLOBIN 23.3 pg (27.0-33.0); MEAN CORPUSCULAR HGB CONC 28.3 g/dl (32.0-36.5); MEAN CORPUSCULAR VOLUME 82.4 fl (80.0-96.0); PLATELET COUNT, AUTOMATED 298 10^3/uL (150-450); RED BLOOD COUNT 3.91 10^6/uL (4.00-5.40); WHITE BLOOD COUNT 6.4 10^3/uL (4.0-10.0)
[2021-02-23 21:04] LABS: ALBUMIN 3.7 GM/DL (3.2-5.2); BILIRUBIN,TOTAL 0.2 MG/DL (0.2-1.0); CALCIUM LEVEL 9.6 MG/DL (8.8-10.2); CREATININE FOR GFR 1.29 MG/DL (0.55-1.30); GLOMERULAR FILTRATION RATE 43.2 (>39); POTASSIUM SERUM 4.4 MEQ/L (3.5-5.1); TOTAL PROTEIN 6.6 GM/DL (6.4-8.2)
== END ==
LOC: M WUC 15:34
PROVIDERS: ATTEND Internal Medicine Cardiovascular Disease
DX: D64.9 Anemia, unspecified (principal)

== ENCOUNTER → 2021-03-31 | Outpatient (REF) | payer MEDICARE, BC ==
[~2021-03-31] MED LIST changes: +ATIV1TAB10 PO; +FREECAP PO; -JANU100T; +JANU100T PO; +REST0.05 OU
== END ==
LOC: M LAB REF 14:31
PROVIDERS: ATTEND Internal Medicine Hematology & Oncology
DX: D50.9 Iron deficiency anemia, unspecified (principal)

== ENCOUNTER 2021-06-22 17:02 | Inpatient (IN) | payer MEDICARE, BC ==
[~2021-06-22] VITALS: Ht 157.5 cm; Wt 62.1 kg
[~2021-06-22 17:02] MED LIST changes: -DULO1CAP6; +DULO1CAP6 PO; -FELO5TAB26; +FELO5TAB26 PO; -GABA-282; +GABA-282 PO; -HYDR-3911; +HYDR-3911 PO; -LABE20TAB; +LABE20TAB PO; -LEVOTAB10; +LEVOTAB10 PO; +META400T PO
[2021-06-22 18:20] LABS: VENOUS BASE EXCESS -3.2 (-2.0-2.0); VENOUS HCO3 20.7 MEQ/L (23.0-27.0); VENOUS O2 SATURATION 90.1 % (60.0-80.0); VENOUS PARTIAL PRESSURE CO2 33.9 mmHg (38.0-50.0); VENOUS PARTIAL PRESSURE O2 62.2 mmHg (30.0-50.0); VENOUS PH 7.403 UNITS (7.330-7.430); VENOUS STANDARD HCO3 21.6 MEQ/L; VENOUS TOTAL CO2 21.7 MEQ/L (24.0-28.0)
[2021-06-22 18:23] LABS: BASO % 0.3 % (0.0-1.0); EOS % 0.5 % (0.0-3.0); HEMATOCRIT 41.8 % (36.0-47.0); HEMOGLOBIN 13.7 g/dl (12.0-15.5); LYMPH # 1.3 10^3/uL (1.5-5.0); LYMPH % 18.1 % (24.0-44.0); MEAN CORPUSCULAR HGB CONC 32.8 g/dl (32.0-36.5); MEAN CORPUSCULAR VOLUME 85.3 fl (80.0-96.0); MONO # 0.7 10^3/uL (0.0-0.8); MONO % 9.1 % (2.0-8.0); NEUTROPHILS # 5.2 10^3/uL (1.5-8.5); NEUTROPHILS % 71.5 % (36.0-66.0); PLATELET COUNT, AUTOMATED 236 10^3/uL (150-450); WHITE BLOOD COUNT 7.3 10^3/uL (4.0-10.0)
[2021-06-22 18:33] LABS: INR 0.9; PROTHROMBIN TIME 12.6 SECONDS (12.7-14.5)
[2021-06-22 18:34] LABS: PARTIAL THROMBOPLASTIN TIME 33.6 SECONDS (25.9-37.0)
[2021-06-22 18:38] LABS: D-DIMER QUANT 842.17 ng/ml (<500)
--- NOTE | 2021-06-22 18:49 | REP ---
INDICATION: Coronavirus workup. COMPARISON: No comparison chest x-ray. TECHNIQUE: Portable upright AP chest radiograph. FINDINGS: There is an interstitial infiltrate in the left lower lobe. Left hemidiaphragm is slightly elevated. No visible pleural effusion. Some increased markings are seen in the right base as well in a linear fashion suggesting platelike atelectasis. Mildly prominent heart. Pulmonary vasculature is cephalized. No other infiltrate. IMPRESSION: Left lower lobe infiltrate. Platelike atelectasis right base. Mild cardiomegaly. <Electronically signed by Reynaldo Soliz > 06/22/21 [id number]
[2021-06-22 18:50] LABS: BLOOD UREA NITROGEN 28 MG/DL (7-18); CALCIUM LEVEL 9.1 MG/DL (8.8-10.2); CARBON DIOXIDE LEVEL 23 MEQ/L (21-32); CHLORIDE LEVEL 106 MEQ/L (98-107); CK-MB VALUE MASS 2.5 NG/ML (<3.6); CPK CREATINE PHOSPHOKINASE 114 U/L (26-192); CREATININE FOR GFR 1.25 MG/DL (0.55-1.30); FERRITIN 958 NG/ML (8-252); GLOMERULAR FILTRATION RATE 44.7 (>39); GLUCOSE, FASTING 124 MG/DL (70-100); MB/CK RELATIVE INDEX 2.19 (< OR =4); NT-PRO BNP 1134 PG/ML (<125); POTASSIUM SERUM 3.5 MEQ/L (3.5-5.1); SODIUM LEVEL 139 MEQ/L (136-145); TROPONIN I < 0.02 NG/ML (< 0.10)
[2021-06-22] MEDS ORDERED: ACET-907 PO (18:58)
[2021-06-22] MEDS ORDERED: ISOVUE-370 76% 100ML VIAL As Ordered ONE (19:04)
[2021-06-22] MEDS ORDERED: VIST25CA PO (19:05)
[2021-06-22] MEDS ORDERED: HYDR-3363 PO (19:08)
[2021-06-22] MEDS ORDERED: HOME MED LIST COMPLETE! XX SCH (19:10)
[2021-06-22 19:12] LABS: RSV AMPLIFICATION NEGATIVE (NEGATIVE)
[2021-06-22] MEDS ORDERED: ACETAMINOPHEN TAB 650MG DOSE (2X325MG) PO ONE (19:40)
[2021-06-22] MEDS ORDERED: LABETALOL 200 MG TAB PO ONE (20:45)
--- NOTE | 2021-06-22 21:18 | REPVR ---
PROCEDURE INFORMATION: Exam: CTA Chest With Contrast Exam date and time: 06/22/2021 8:14 PM Age: 71 years old Clinical indication: Shortness of breath; Additional info: SOB, elevated d dimer TECHNIQUE: Imaging protocol: Computed tomographic angiography of the chest with contrast. 3D rendering (Not supervised by radiologist): MIP and/or 3D reconstructed images were created by the technologist. Radiation optimization: All CT scans at this facility use at least one of these dose optimization techniques: automated exposure control; mA and/or kV adjustment per patient size (includes targeted exams where dose is matched to clinical indication); or iterative reconstruction. Contrast material: ISOVUE 370; Contrast volume: 75 ml; Contrast route: INTRAVENOUS (IV); COMPARISON: CR PORTABLE CHEST X-RAY 06/22/2021 6:30 PM FINDINGS: Pulmonary arteries: No evidence of pulmonary artery emboli. No evidence of thoracic aortic aneurysm or dissection. Aorta: See "Pulmonary arteries" finding. Lungs: There is centrilobular emphysema more extensive in the upper lobes. There are areas of peripheral interstitial fibrosis at the lung bases. Pleural spaces: Unremarkable. No pneumothorax. No pleural effusion. Heart: There is a trace pericardial effusion. There is a pericardial calcification. Lymph nodes: There are small calcified mediastinal lymph nodes. No significantly enlarged noncalcified lymph nodes. Bones/joints: Unremarkable. No acute fracture. Soft tissues: Unremarkable. IMPRESSION: 1. No evidence of pulmonary artery emboli. 2. There is chronic lung disease with centrilobular emphysema and areas of interstitial fibrosis. Electronically signed by: Live Escoto On 06/22/2021 21:18:17 PM
[2021-06-22] MEDS ORDERED: DEXTROSE 50% 50 ML SYRINGE IV PRN (22:55)
[2021-06-22] MEDS ORDERED: GLUCOSE 4GM CHEW TABLET PO PRN (22:55)
[2021-06-22] MEDS ORDERED: GLUCAGON INJ 1MG VIAL SC PRN (22:55)
--- NOTE | 2021-06-22 22:58 | HPEPDOC ---
[facility] Medical History & Physical Date of Admission Jun 22, 2021 Date of Service: Jun 22, 2021 History and Physical CHIEF COMPLAINT: Shortness of breath HISTORY OF PRESENT ILLNESS: 71-year-old female history of hypertension, diabetes, hyperlipidemia, anxiety and depression who started having cold-like symptoms on June 11 and tested positive on June 12 who is unvaccinated presents to the emergency department complaining of increasing shortness of breath. Patient describes that on the onset of symptoms she was having body aches headache and a dry cough and over the past 3-4 days she has developed progressively worsening shortness of breath associated with more body aches and a headache. She tells me that her son at home is also recovering from Covid and doing well. Patient denies any fevers denies any chest pain. Denies any GI symptoms or nausea or vomiting. Patient endorses feeling better with supplemental oxygen. Patient will be admitted for further management of Covid pneumonia with hypoxia. PAST MEDICAL/SURGICAL HISTORY: Hypertension Hyperlipidemia Diabetes Iron deficiency anemia Anxiety and depression Right shoulder surgery Hysterectomy Cholecystectomy SOCIAL HISTORY: Denies alcohol use Denies tobacco use actively she quit more than 20 years ago Denies illicit drug use FAMILY HISTORY: Her son also has Covid and is currently recovering ALLERGIES: Please see below. REVIEW OF SYSTEMS: 10 point review of systems complete all negative otherwise stated in HPI HOME MEDICATIONS: Please see below. PHYSICAL EXAMINATION: Constitutional: Awake and alert, in mild apparent distress ENT: Sclera are clear. Mucosa is moist. Respiratory: Lungs diminished breath sounds bilaterally. No use of accessory muscles. Saturating 92% on the monitor on 3 L of supplemental oxygen by nasal cannula. Able to speak about 4-6 words at a time before stopping to catch her breath. Cardiovascular: RRR S1 and S2 are normal, no murmur Gastrointestinal: Abdomen is soft, non distended, non tender, BS present. Musculoskeletal: No lower extremity edema. Neurologic: No focal neurological deficit. Mental Status: A&O x3, appears anxious Skin: No visible rashes. LABORATORY DATA: See below. IMAGING: See chart MICROBIOLOGY: Please see below. ASSESSMENT/PLAN # Shortness of breath 2/2 Covid 19 infection: Has multiple risk factors for poor outcomes with Covid 19 infection such as hypertension and diabetes. Initial inflammatory markers elevated. Trend inflammatory markers. IV Decadron daily. out of windows to receive rimdasivir. Lovenox Covid prophylactic dosing. O2 target 90% or better. pro-calcitonin negative no need for antibiotics at this time trend pro-calcitonin. # Hypertension: Continue home meds. Monitor and titrate. Blood pressure uncontrolled increased hydralazine dosing titrate medicines as needed. # DM: ISS. Frequent Accu-Cheks. Hypoglycemic precautions. # Anxiety and depression: Continue duloxetine and buspirone. Continue home Ativan as needed for anxiety. #Hyperlipidemia: Continue pravastatin # DVT prophylaxis: Lovenox COVID prophylactic dose A Yousef Hospitalist Vital Signs Vital Signs Date Time Temp Pulse Resp B/P (MAP) Pulse Ox O2 Delivery O2 Flow Rate FiO2 06/22/21 21:15 86 200/88 06/22/21 19:32 91 06/22/21 19:12 Nasal Cannula 3.0 06/22/21 17:02 98.7 18 Laboratory Data Labs 24H Laboratory Tests 2 06/22/21 17:33: Immature Granulocyte % (Auto) 0.5, Neutrophils (%) (Auto) 71.5H, Lymphocytes (%) (Auto) 18.1L, Monocytes (%) (Auto) 9.1H, Eosinophils (%) (Auto) 0.5, Basophils (%) (Auto) 0.3, Neutrophils # (Auto) 5.2, Lymphocytes # (Auto) 1.3L, Monocytes # (Auto) 0.7, Eosinophils # (Auto) 0.0, Basophils # (Auto) 0.0, Nucleated Red Blood Cells % (auto) 0.0, Prothrombin Time 12.6, Prothromb Time International Ratio 0.90, Activated Partial Thromboplast Time 33.6, Fibrinogen 620H, D-Dimer, Quantitative 842.17H, Anion Gap 10, Glomerular Filtration Rate 44.7, Calcium Level 9.1, Ferritin 958H, Total Creatine Kinase 114, Creatine Kinase MB 2.5, Creatine Kinase MB Relative Index 2.19, Troponin I < 0.02, C-Reactive Protein, Quantitative 12.40H, GP-Yjw-R-Type Natriuretic Peptide 1134H 06/22/21 17:51: Procalcitonin 0.05, Coronavirus (COVID-19)(PCR) POSITIVEA, Influenza Type A (RT- PCR) NEGATIVE, Influenza Type B (RT-PCR) NEGATIVE, Respiratory Syncytial Virus (PCR) NEGATIVE 06/22/21 18:12: Blood Gas Bicarbonate Standard 21.6, Venous Blood pH 7.403, Venous Blood Partial Pressure CO2 33.9L, Venous Blood Partial Pressure O2 62.2H, Venous Blood Total Carbon Dioxide 21.7L, Venous Blood HCO3 20.7L, Venous Blood Oxygen Saturation 90.1H, Venous Blood Base Excess -3.2L CBC/BMP Laboratory Tests 06/22/21 17:33 Microbiology Microbiology 06/22/21 Blood Culture, Received Pending Home Medications Scheduled Buspirone HCl (Buspirone HCl) 10 Mg Tablet, 10 MG PO BID Duloxetine Hcl (Duloxetine HCl) 60 Mg Capsule.dr, 60 MG PO DAILY Felodipine (Felodipine ER) 5 Mg Tab.er.24h, 5 MG PO QHS Gabapentin (Gabapentin) 300 Mg Capsule, 300 MG PO BID Hydralazine HCl (Hydralazine HCl) 50 Mg Tablet, 50 MG PO BID Hydroxyzine HCl (Hydroxyzine HCl) 25 Mg Tablet, 25 MG PO BID Labetalol HCl (Labetalol HCl) 200 Mg Tablet, 200 MG PO BID Levocetirizine Dihydrochloride (Levocetirizine Dihydrochloride) 5 Mg Tablet, 5 MG PO DAILY Lorazepam (Ativan) 0.5 Mg Tablet, 0.5 MG PO BID Metaxalone (Metaxalone) 400 Mg Tablet, 400 MG PO BID Pravastatin Sodium (Pravastatin Sodium) 40 Mg Tablet, 40 MG PO DAILY Scheduled PRN Acetaminophen (Tylenol) 325 Mg Tablet, 325 MG PO Q6H PRN for PAIN LEVEL 1-4 Allergies Coded Allergies: Penicillins (Verified Allergy, Severe, HIVES, ITCHING,SOB, 04/15/21) Sulfa (Sulfonamide Antibiotics) (Verified Allergy, Intermediate, HIVES,ITCHING, 04/15/21) morphine (Verified Allergy, Intermediate, ITCHING, 04/15/21) tizanidine (Verified Adverse Reaction, Intermediate, EXCESSIVE SLEEPINESS, 04/15/21) BENNETT STRINGER MD Jun 22, 2021 22:58
[2021-06-22] MEDS: busPIRone 10 MG TAB PO SCH (23:38)
[2021-06-22] MEDS: LORazepam 0.5 MG TAB PO SCH (23:38)
[2021-06-22] MEDS: hydrOXYzine 25 MG TAB PO SCH (23:38)
[2021-06-22] MEDS: GABAPENTIN 300 MG CAP PO SCH (23:38)
[2021-06-22] MEDS: dexameTHASONE 4 MG/ML 1ML VIAL (J1100 PER 1MG) IV SCH (23:39)
[2021-06-22] MEDS: ENOXAPARIN 30MG/0.3ML SYRINGE (J1650 PER 10MG) SC SCH (23:39)
[2021-06-22] MEDS: HumaLOG INSULIN (NovoLOG) PER UNIT SC SCH (23:48)
[2021-06-23] VITALS (7 sets, daily range): BP systolic 127–172; BP diastolic 60–81; O2SAT 91–95
[2021-06-23 07:28] LABS: HEMATOCRIT 40.9 % (36.0-47.0); HEMOGLOBIN 13.3 g/dl (12.0-15.5); MEAN CORPUSCULAR HEMOGLOBIN 27.9 pg (27.0-33.0); MEAN CORPUSCULAR HGB CONC 32.5 g/dl (32.0-36.5); MEAN CORPUSCULAR VOLUME 85.7 fl (80.0-96.0); PLATELET COUNT, AUTOMATED 262 10^3/uL (150-450); RED BLOOD COUNT 4.77 10^6/uL (4.00-5.40); WHITE BLOOD COUNT 4.6 10^3/uL (4.0-10.0)
[2021-06-23 07:44] LABS: CALCIUM LEVEL 9.2 MG/DL (8.8-10.2); CREATININE FOR GFR 1.03 MG/DL (0.55-1.30); GLOMERULAR FILTRATION RATE 55.9 (>39); MAGNESIUM LEVEL 2.1 MG/DL (1.8-2.4); POTASSIUM SERUM 3.9 MEQ/L (3.5-5.1)
[2021-06-23 08:09] LABS: ANISOCYTOSIS 1+; ATYPICAL LYMPH 1 % (0-5); LYMPHOCYTES 7 % (16-44); MONOCYTES 2 % (0-5); NEUTROPHILS 89 % (28-66); PLATELET ESTIMATE NORMAL (NORMAL); POIKILOCYTOSIS 1+
[2021-06-23 08:10] LABS: OVALOCYTES 1+
[2021-06-23] MEDS: HumaLOG INSULIN (NovoLOG) PER UNIT SC SCH ×4 (08:29→21:00)
[2021-06-23] MEDS: ENOXAPARIN 30MG/0.3ML SYRINGE (J1650 PER 10MG) SC SCH ×2 (08:29→21:06)
[2021-06-23] MEDS: GABAPENTIN 300 MG CAP PO SCH ×2 (08:30→21:06)
[2021-06-23] MEDS: DULoxetine 30MG CAPSULE (CYMBALTA) PO SCH (08:30)
[2021-06-23] MEDS: hydrOXYzine 25 MG TAB PO SCH ×2 (08:31→21:06)
[2021-06-23] MEDS: PRAVASTATIN 20 MG TAB PO SCH (08:31)
[2021-06-23] MEDS: LABETALOL 200 MG TAB PO SCH ×2 (08:31→21:08)
[2021-06-23] MEDS: LORazepam 0.5 MG TAB PO SCH ×2 (08:31→21:06)
[2021-06-23] MEDS: busPIRone 10 MG TAB PO SCH ×2 (08:46→21:06)
[2021-06-23] MEDS: **hydrALAZINE** 50 MG TAB PO SCH ×4 (08:47→21:09)
[2021-06-23] MEDS ORDERED: PNEUMOCOCCAL VACCINE 0.5ML SYRINGE (PNEUMOVAX 23) IM ONE (09:00)
--- NOTE | 2021-06-23 20:24 | IPNPDOC ---
Text Note Date of Service The patient was seen on 06/23/21. NOTE Hospitalist Progress Note Subjective: Patient is reclined in bed when I entered the room. She is actually quite pleasant to speak to, and states that she is feeling fairly well at this time. She does continue to have significant shortness of breath with just about any sort of exertion. Otherwise, she does not have any complaints at this time. Objective: General: Awake, alert, oriented 3. Not in any acute distress. HEENT: Head normocephalic, atraumatic, sclera are nonicteric. Hearing is grossly intact to conversation. Respiratory: Clear to auscultation bilaterally with no wheezes, rales, or rhonchi. Cardiovascular: Regular rate and rhythm, with no rubs, gallops, or murmur. Abdomen: Soft, nontender, nondistended, no hepatosplenomegaly appreciated. Bowel sounds present. Extremities: 2+ pulses in the radial and dorsalis pedis bilaterally. No evidence of clubbing or cyanosis. Assessment: COVID-19 pneumonia -Continue Decadron, oxygen supplementation -Out of window to receive remdesivir, pro calcitonin negative so no need for antibiotics at this time. Hypertension -Continue home medications, and as needed hydralazine Diabetes mellitus -Sliding scale insulin Anxiety Depression -Continue home dose of duloxetine, buspirone, Ativan as needed Hyperlipidemia -Continue pravastatin DVT prophylaxis -Lovenox Covid prophylactic dose VS,Fishbone, I+O VS, Fishbone, I+O Laboratory Tests 06/23/21 06:51 Vital Signs Date Time Temp Pulse Resp B/P (MAP) Pulse Ox O2 Delivery O2 Flow Rate FiO2 06/23/21 18:45 93 HVNI-Vapotherm 35.0 75 06/23/21 17:46 170/74 06/23/21 11:00 74 06/23/21 08:00 97.3 20 JENI ESCALANTE DO Jun 23, 2021 20:24
[2021-06-23] MEDS: dexameTHASONE 4 MG/ML 1ML VIAL (J1100 PER 1MG) IV SCH (21:06)
[2021-06-24] VITALS (9 sets, daily range): BP systolic 130–161; BP diastolic 58–73; O2SAT 91–95
--- NOTE | 2021-06-24 00:04 | ECGEPIP ---
[facility] - ED Test Date: 2021-06-22 Pat Name: ANGELIA MCNEIL Department: Room: [place] [id number] Gender: Female Handwriting Expert: JUNIE : [id number] Requested By: RILEY Buckner PA-C Order Number: [id number] Reading MD: Juan Pichardo Measurements Intervals Dennis Rate: 87 P: 55 AZ: 80 QRS: 2 QRSD: 86 T: 80 QT: 386 QTc: 464 Interpretive Statements Sinus rhythm with short [place] Left ventricular hypertrophy with repolarization abnormality ( Aayush product ) NO PRIORS FOR COMPARISON Electronically Signed on 06-24-2021 0:04:00 EDT by Juan Pichardo
[2021-06-24] MEDS: ACETAMINOPHEN TAB 650MG DOSE (2X325MG) PO PRN ×3 (06:44→21:45)
[2021-06-24 07:20] LABS: HEMATOCRIT 39.3 % (36.0-47.0); HEMOGLOBIN 12.6 g/dl (12.0-15.5); MEAN CORPUSCULAR HEMOGLOBIN 28.2 pg (27.0-33.0); MEAN CORPUSCULAR HGB CONC 32.1 g/dl (32.0-36.5); MEAN CORPUSCULAR VOLUME 87.9 fl (80.0-96.0); PLATELET COUNT, AUTOMATED 304 10^3/uL (150-450); RED BLOOD COUNT 4.47 10^6/uL (4.00-5.40); WHITE BLOOD COUNT 6.9 10^3/uL (4.0-10.0)
[2021-06-24 07:28] LABS: INR 0.87; PROTHROMBIN TIME 12.2 SECONDS (12.7-14.5)
[2021-06-24 07:29] LABS: PARTIAL THROMBOPLASTIN TIME 31.7 SECONDS (25.9-37.0)
[2021-06-24 07:38] LABS: ALBUMIN 2.6 GM/DL (3.2-5.2); ALT/SGPT 37 U/L (12-78); BILIRUBIN,DIRECT < 0.1 MG/DL (0.0-0.2); BILIRUBIN,TOTAL 0.2 MG/DL (0.2-1.0); BLOOD UREA NITROGEN 33 MG/DL (7-18); CALCIUM LEVEL 8.9 MG/DL (8.8-10.2); CARBON DIOXIDE LEVEL 24 MEQ/L (21-32); CHLORIDE LEVEL 110 MEQ/L (98-107); CPK CREATINE PHOSPHOKINASE 54 U/L (26-192); CREATININE FOR GFR 1.01 MG/DL (0.55-1.30); FERRITIN 785 NG/ML (8-252); GLOMERULAR FILTRATION RATE 57.2 (>39); GLUCOSE, FASTING 129 MG/DL (70-100); LDH LACTATE DEHYDROGENASE 266 U/L (84-246); MAGNESIUM LEVEL 1.8 MG/DL (1.8-2.4); NT-PRO BNP 505 PG/ML (<125); SODIUM LEVEL 141 MEQ/L (136-145); TOTAL PROTEIN 6.8 GM/DL (6.4-8.2)
[2021-06-24 08:10] LABS: ANISOCYTOSIS 2+; ATYPICAL LYMPH 1 % (0-5); HYPOCHROMASIA 1+; LYMPHOCYTES 17 % (16-44); MONOCYTES 4 % (0-5); NEUTROPHILS 75 % (28-66); PLATELET CLUMPS SMALL AMT; PLATELET ESTIMATE NORMAL (NORMAL)
[2021-06-24 08:11] LABS: MICROCYTOSIS 1+
[2021-06-24] MEDS: ENOXAPARIN 30MG/0.3ML SYRINGE (J1650 PER 10MG) SC SCH ×2 (08:46→21:45)
[2021-06-24] MEDS: HumaLOG INSULIN (NovoLOG) PER UNIT SC SCH ×4 (08:46→19:25)
[2021-06-24] MEDS: PRAVASTATIN 20 MG TAB PO SCH (08:47)
[2021-06-24] MEDS: GABAPENTIN 300 MG CAP PO SCH ×2 (08:47→21:45)
[2021-06-24] MEDS: DULoxetine 30MG CAPSULE (CYMBALTA) PO SCH (08:47)
[2021-06-24] MEDS: LORazepam 0.5 MG TAB PO SCH ×2 (08:47→21:46)
[2021-06-24] MEDS: busPIRone 10 MG TAB PO SCH ×2 (08:47→21:46)
[2021-06-24] MEDS: **hydrALAZINE** 50 MG TAB PO SCH ×3 (08:48→21:46)
[2021-06-24] MEDS: hydrOXYzine 25 MG TAB PO SCH ×2 (09:39→21:46)
[2021-06-24] MEDS: LABETALOL 200 MG TAB PO SCH ×2 (09:39→21:46)
[2021-06-24 16:11] LABS: MYCOPLASMA PNEUMONIAE IgG 127 U/mL (0-99); MYCOPLASMA PNEUMONIAE IgM <770 U/mL (0-769)
--- NOTE | 2021-06-24 19:10 | IPNPDOC ---
Text Note Date of Service The patient was seen on 06/24/21. NOTE Hospitalist Progress Note Subjective: Patient reports that she is feeling better today than yesterday, but she is still winded with minimal activity. Oxygen requirements are going down, however she still is requiring a considerable amount of oxygen via Vapotherm. She does continue to have a mild cough, but otherwise remainder of her review of systems is negative. Objective: General: Awake, alert, oriented 3. Not in any acute distress. HEENT: Head normocephalic, atraumatic, sclera are nonicteric. Hearing is grossly intact to conversation. Respiratory: Diminished throughout, however I do not appreciate any rales, rhonchi, or wheezing at this time. Cardiovascular: Regular rate and rhythm, with no rubs, gallops, or murmur. Abdomen: Soft, nontender, nondistended, no hepatosplenomegaly appreciated. Bowel sounds present. Extremities: 2+ pulses in the radial and dorsalis pedis bilaterally. No evidence of clubbing or cyanosis. Assessment: COVID-19 pneumonia -Continue Decadron -oxygen supplementation, wean with a target to greater than 90% -Out of window to receive remdesivir -pro calcitonin negative so no need for antibiotics Hypertension -Continue home medications, and as needed hydralazine Diabetes mellitus -Sliding scale insulin Anxiety Depression -Continue home dose of duloxetine, buspirone, Ativan as needed Hyperlipidemia -Continue pravastatin DVT prophylaxis -Lovenox Covid prophylactic dose VS,Fishbone, I+O VS, Fishbone, I+O Laboratory Tests 06/24/21 06:19 Vital Signs Date Time Temp Pulse Resp B/P (MAP) Pulse Ox O2 Delivery O2 Flow Rate FiO2 06/24/21 16:00 91 HVNI-Vapotherm 25.0 50 06/24/21 15:29 148/103 06/24/21 14:00 96.9 73 14 I&O- Last 24 Hours up to 6 AM 06/24/21 06:00 Intake Total 1390 ml Output Total 1200 ml Balance 190 ml JENI ESCALANTE DO Jun 24, 2021 19:10
[2021-06-24] MEDS: dexameTHASONE 4 MG/ML 1ML VIAL (J1100 PER 1MG) IV SCH (21:46)
[2021-06-25] VITALS: O2SAT 96
[2021-06-25 04:00] VITALS: O2SAT 96
[2021-06-25 07:28] LABS: BASO % 0.2 % (0.0-1.0); HEMATOCRIT 37.2 % (36.0-47.0); HEMOGLOBIN 11.9 g/dl (12.0-15.5); LYMPH # 0.6 10^3/uL (1.5-5.0); MEAN CORPUSCULAR HEMOGLOBIN 27.9 pg (27.0-33.0); MEAN CORPUSCULAR VOLUME 87.1 fl (80.0-96.0); MONO # 0.1 10^3/uL (0.0-0.8); MONO % 2.4 % (2.0-8.0); NEUTROPHILS # 4.9 10^3/uL (1.5-8.5); NEUTROPHILS % 84.7 % (36.0-66.0); PLATELET COUNT, AUTOMATED 313 10^3/uL (150-450); RED BLOOD COUNT 4.27 10^6/uL (4.00-5.40); WHITE BLOOD COUNT 5.8 10^3/uL (4.0-10.0)
[2021-06-25 07:52] LABS: BLOOD UREA NITROGEN 30 MG/DL (7-18); CALCIUM LEVEL 8.7 MG/DL (8.8-10.2); CARBON DIOXIDE LEVEL 21 MEQ/L (21-32); CHLORIDE LEVEL 110 MEQ/L (98-107); CREATININE FOR GFR 0.94 MG/DL (0.55-1.30); GLOMERULAR FILTRATION RATE > 60.0 (>39); GLUCOSE, FASTING 138 MG/DL (70-100); MAGNESIUM LEVEL 1.7 MG/DL (1.8-2.4); POTASSIUM SERUM 4.6 MEQ/L (3.5-5.1); SODIUM LEVEL 141 MEQ/L (136-145)
[2021-06-25 08:00] VITALS: O2SAT 90
[2021-06-25] MEDS: **hydrALAZINE** 50 MG TAB PO SCH ×3 (09:12→22:53)
[2021-06-25] MEDS: hydrOXYzine 25 MG TAB PO SCH ×2 (09:13→22:54)
[2021-06-25] MEDS: LORazepam 0.5 MG TAB PO SCH ×2 (09:13→22:54)
[2021-06-25] MEDS: GABAPENTIN 300 MG CAP PO SCH ×2 (09:13→22:53)
[2021-06-25] MEDS: busPIRone 10 MG TAB PO SCH ×2 (09:13→22:54)
[2021-06-25] MEDS: PRAVASTATIN 20 MG TAB PO SCH (09:13)
[2021-06-25] MEDS: DULoxetine 30MG CAPSULE (CYMBALTA) PO SCH (09:13)
[2021-06-25] MEDS: LABETALOL 200 MG TAB PO SCH ×2 (09:13→22:54)
[2021-06-25] MEDS: HumaLOG INSULIN (NovoLOG) PER UNIT SC SCH ×4 (09:14→21:00)
[2021-06-25] MEDS: ENOXAPARIN 30MG/0.3ML SYRINGE (J1650 PER 10MG) SC SCH ×2 (09:14→22:52)
[2021-06-25] MEDS ORDERED: MAG SULF 1GM/100ML (MAG RUN) 1 GM in IV 1 EA IV ONE (10:15)
[2021-06-25] MEDS ORDERED: SODIUM CHLORIDE 0.9% 1000ML IV ONE (10:25)
--- NOTE | 2021-06-25 11:30 | IPNPDOC ---
Text Note Date of Service The patient was seen on 06/25/21. NOTE Hospitalist Progress Note Subjective: Patient is sitting upright in bed doing her hair. She does not have any acute events overnight. She reports that her breathing is feeling pretty well, and she is significantly better now than when she first entered the hospital. Oxygen re quirements are still high, but are slowly trending down. Remainder of review of systems is negative. Objective: General: Awake, alert, oriented 3. Not in any acute distress. HEENT: Head normocephalic, atraumatic, sclera are nonicteric. Hearing is grossly intact to conversation. Respiratory: Diminished throughout, however I do not appreciate any rales, rhonchi, or wheezing at this time. Exam is limited because of the use of disposable stethoscope Cardiovascular: Regular rate and rhythm, with no rubs, gallops, or murmur. Abdomen: Soft, nontender, nondistended, no hepatosplenomegaly appreciated. Bowel sounds present. Extremities: 2+ pulses in the radial and dorsalis pedis bilaterally. No evidence of clubbing or cyanosis. Assessment: COVID-19 pneumonia -Continue Decadron -oxygen supplementation, wean with a target to greater than 90% -Out of window to receive remdesivir -pro calcitonin negative so no need for antibiotics Prerenal azotemia -Perhaps due to high oxygen flow, she may be getting mildly dehydrated. Will administer 500 cc normal saline bolus Hypomagnesemia -Mag run ordered Hypertension -Continue home medications, and as needed hydralazine -Blood pressures are still elevated, however they are trending down slowly on a daily basis Diabetes mellitus -Sliding scale insulin Anxiety Depression -Continue home dose of duloxetine, buspirone, Ativan as needed Hyperlipidemia -Continue pravastatin DVT prophylaxis -Lovenox Covid prophylactic dose VS,Fishbone, I+O VS, Fishbone, I+O Laboratory Tests 06/25/21 06:19 Vital Signs Date Time Temp Pulse Resp B/P (MAP) Pulse Ox O2 Delivery O2 Flow Rate FiO2 06/25/21 09:12 142/63 06/25/21 09:00 90 HVNI-Vapotherm 25.0 50 06/24/21 21:46 67 06/24/21 19:26 97.7 16 I&O- Last 24 Hours up to 6 AM 06/25/21 06:00 Intake Total 2540 ml Output Total 700 ml Balance 1840 ml JENI ESCALANTE DO Jun 25, 2021 11:30
[2021-06-25 14:00] VITALS: BP 123/58
[2021-06-25 20:00] VITALS: O2SAT 89
[2021-06-25 22:00] VITALS: BP 155/68
[2021-06-25] MEDS: dexameTHASONE 4 MG/ML 1ML VIAL (J1100 PER 1MG) IV SCH (22:54)
[2021-06-26] VITALS (11 sets, daily range): BP systolic 143–165; BP diastolic 59–72; O2SAT 88–97
[2021-06-26 07:32] LABS: HEMATOCRIT 37.6 % (36.0-47.0); MEAN CORPUSCULAR HEMOGLOBIN 28.1 pg (27.0-33.0); MEAN CORPUSCULAR HGB CONC 31.9 g/dl (32.0-36.5); MEAN CORPUSCULAR VOLUME 88.1 fl (80.0-96.0); PLATELET COUNT, AUTOMATED 334 10^3/uL (150-450); RED BLOOD COUNT 4.27 10^6/uL (4.00-5.40); WHITE BLOOD COUNT 7.7 10^3/uL (4.0-10.0)
[2021-06-26 07:51] LABS: INR 0.85
[2021-06-26 08:06] LABS: ALBUMIN 2.5 GM/DL (3.2-5.2); ALT/SGPT 37 U/L (12-78); BILIRUBIN,DIRECT < 0.1 MG/DL (0.0-0.2); BILIRUBIN,TOTAL 0.2 MG/DL (0.2-1.0); BLOOD UREA NITROGEN 28 MG/DL (7-18); CALCIUM LEVEL 8.3 MG/DL (8.8-10.2); CARBON DIOXIDE LEVEL 21 MEQ/L (21-32); CHLORIDE LEVEL 112 MEQ/L (98-107); CPK CREATINE PHOSPHOKINASE 43 U/L (26-192); CREATININE FOR GFR 0.96 MG/DL (0.55-1.30); FERRITIN 532 NG/ML (8-252); GLOMERULAR FILTRATION RATE > 60.0 (>39); GLUCOSE, FASTING 134 MG/DL (70-100); LDH LACTATE DEHYDROGENASE 243 U/L (84-246); MAGNESIUM LEVEL 1.8 MG/DL (1.8-2.4); NT-PRO BNP 1154 PG/ML (<125); POTASSIUM SERUM 4.8 MEQ/L (3.5-5.1); SODIUM LEVEL 141 MEQ/L (136-145); TOTAL PROTEIN 5.9 GM/DL (6.4-8.2)
[2021-06-26] MEDS: GABAPENTIN 300 MG CAP PO SCH ×2 (09:14→21:43)
[2021-06-26] MEDS: LORazepam 0.5 MG TAB PO SCH ×2 (09:14→21:45)
[2021-06-26] MEDS: DULoxetine 30MG CAPSULE (CYMBALTA) PO SCH (09:15)
[2021-06-26] MEDS: hydrOXYzine 25 MG TAB PO SCH ×2 (09:15→21:44)
[2021-06-26] MEDS: PRAVASTATIN 20 MG TAB PO SCH (09:15)
[2021-06-26] MEDS: busPIRone 10 MG TAB PO SCH ×2 (09:15→21:43)
[2021-06-26] MEDS: LABETALOL 200 MG TAB PO SCH ×2 (09:16→21:44)
[2021-06-26] MEDS: **hydrALAZINE** 50 MG TAB PO SCH ×3 (09:16→21:44)
[2021-06-26] MEDS: ENOXAPARIN 30MG/0.3ML SYRINGE (J1650 PER 10MG) SC SCH ×2 (09:17→21:43)
[2021-06-26] MEDS: HumaLOG INSULIN (NovoLOG) PER UNIT SC SCH ×4 (09:17→21:00)
[2021-06-26] MEDS ORDERED: MOM 30ML SUSPENSION UDC PO PRN (11:55)
[2021-06-26] MEDS ORDERED: MIRALAX *UNIT DOSE* 17GM PACKET PO PRN (11:55)
--- NOTE | 2021-06-26 12:34 | IPNPDOC ---
Text Note Date of Service The patient was seen on 06/26/21. NOTE Hospitalist Progress Note Subjective: Oxygen demands continue to improve, she is now on 2-3 L nasal cannula. She reports feeling winded, especially with any sort of exertion, but otherwise does not have any other complaints and the remainder of her review of systems is negative. Objective: General: Awake, alert, oriented 3. Not in any acute distress. HEENT: Head normocephalic, atraumatic, sclera are nonicteric. Hearing is grossly intact to conversation. Respiratory: It seems that she has better airflow today. No adventitious sounds noted. Exam is somewhat limited by the use of disposable stethoscope. Cardiovascular: Regular rate and rhythm, with no rubs, gallops, or murmur. Abdomen: Soft, nontender, nondistended, no hepatosplenomegaly appreciated. Bowel sounds present. Extremities: 2+ pulses in the radial and dorsalis pedis bilaterally. No evidence of clubbing or cyanosis. Assessment: COVID-19 pneumonia -Continue Decadron -oxygen supplementation, wean with a target to greater than 90% -Out of window to receive remdesivir -pro calcitonin negative so no need for antibiotics -This morning the Vapotherm was discontinued, and she is saturating well on 2-3 L oxygen via nasal cannula Prerenal azotemia -Stable Hypomagnesemia -Resolved Hypertension -Blood pressures continue to be labile -Continue home medications labetalol and hydralazine. We do not have felodipine on pharmacy, therefore an additional dose of hydralazine has been added to her regimen (typically she is twice daily, now she has 3 times daily while inpatient) Diabetes mellitus -Sliding scale insulin Anxiety Depression -Continue home dose of duloxetine, buspirone, Ativan as needed Hyperlipidemia -Continue pravastatin DVT prophylaxis -Lovenox Covid prophylactic dose VS,Fishbone, I+O VS, Fishbone, I+O Laboratory Tests 06/26/21 06:48 Vital Signs Date Time Temp Pulse Resp B/P (MAP) Pulse Ox O2 Delivery O2 Flow Rate FiO2 06/26/21 09:16 69 174/74 06/26/21 09:00 94 Nasal Cannula 2.0 06/26/21 08:00 50 06/26/21 06:00 97.9 21 I&O- Last 24 Hours up to 6 AM 06/26/21 06:00 Intake Total 1350 ml Output Total 1300 ml Balance 50 ml JENI ESCALANTE DO Jun 26, 2021 12:34
[2021-06-26] MEDS: SENOKOT S TAB PO SCH (21:44)
[2021-06-26] MEDS: dexameTHASONE 4 MG/ML 1ML VIAL (J1100 PER 1MG) IV SCH (21:45)
[2021-06-27] VITALS (9 sets, daily range): BP systolic 124–184; BP diastolic 55–90; O2SAT 93–95
[2021-06-27] MEDS: **hydrALAZINE** 50 MG TAB PO SCH ×3 (06:13→21:23)
[2021-06-27 06:18] LABS: HEMATOCRIT 37.8 % (36.0-47.0); HEMOGLOBIN 12.3 g/dl (12.0-15.5); MEAN CORPUSCULAR HGB CONC 32.5 g/dl (32.0-36.5); MEAN CORPUSCULAR VOLUME 85.9 fl (80.0-96.0); PLATELET COUNT, AUTOMATED 368 10^3/uL (150-450); WHITE BLOOD COUNT 10.2 10^3/uL (4.0-10.0)
[2021-06-27 06:58] LABS: CALCIUM LEVEL 8.8 MG/DL (8.8-10.2); CREATININE FOR GFR 0.97 MG/DL (0.55-1.30); GLOMERULAR FILTRATION RATE 59.9 (>39); POTASSIUM SERUM 4.1 MEQ/L (3.5-5.1)
[2021-06-27] MEDS: SENOKOT S TAB PO SCH ×2 (09:00→21:21)
[2021-06-27] MEDS: busPIRone 10 MG TAB PO SCH ×2 (09:13→21:23)
[2021-06-27] MEDS: GABAPENTIN 300 MG CAP PO SCH ×2 (09:13→21:21)
[2021-06-27] MEDS: DULoxetine 30MG CAPSULE (CYMBALTA) PO SCH (09:14)
[2021-06-27] MEDS: PRAVASTATIN 20 MG TAB PO SCH (09:14)
[2021-06-27] MEDS: LABETALOL 200 MG TAB PO SCH ×2 (09:14→21:23)
[2021-06-27] MEDS: LORazepam 0.5 MG TAB PO SCH ×2 (09:15→21:21)
[2021-06-27] MEDS: ENOXAPARIN 30MG/0.3ML SYRINGE (J1650 PER 10MG) SC SCH ×2 (09:15→21:21)
[2021-06-27] MEDS: hydrOXYzine 25 MG TAB PO SCH ×2 (09:15→21:23)
[2021-06-27] MEDS: HumaLOG INSULIN (NovoLOG) PER UNIT SC SCH ×4 (09:15→21:00)
[2021-06-27 17:07] LABS: BODY FLUID CULTURE Not indicated. (.); LEGIONELLA ANTIGEN URINE Negative (Negative); ORGANISM ID Not indicated. (.); SPECIMEN SOURCE Urine (.); URINE STREP PNEUMONIAE ANTIGEN Negative (Negative)
--- NOTE | 2021-06-27 19:34 | IPNPDOC ---
Text Note Date of Service The patient was seen on 06/27/21. NOTE Hospitalist Progress Note Subjective: Patient once again reports fatigue, exertional dyspnea. We continue to attempt weaning her oxygen down, she is down to 1-2 L via nasal cannula, but certainly cannot tolerate room air at this time. Otherwise, she is in good spirits once again today does not have any complaints. Objective: General: Awake, alert, oriented 3. Not in any acute distress. HEENT: Head normocephalic, atraumatic, sclera are nonicteric. Hearing is grossly intact to conversation. Respiratory: Appears to be clear to auscultation bilaterally. Exam is limited by the use of disposable stethoscope. Cardiovascular: Regular rate and rhythm, with no rubs, gallops, or murmur. Abdomen: Soft, nontender, nondistended, no hepatosplenomegaly appreciated. Bowel sounds present. Extremities: 2+ pulses in the radial and dorsalis pedis bilaterally. No evidence of clubbing or cyanosis. Assessment: COVID-19 pneumonia -Continue Decadron -oxygen supplementation, continue to wean with a target to greater than 90% -Out of window to receive remdesivir -pro calcitonin negative so no need for antibiotics Prerenal azotemia -Stable Hypomagnesemia -Resolved Hypertension -Blood pressures continue to be labile -Continue home medications labetalol and hydralazine. We do not have felodipine on pharmacy, therefore an additional dose of hydralazine has been added to her regimen (typically she is twice daily, now she has 3 times daily while inpatient) Diabetes mellitus -Sliding scale insulin Anxiety Depression -Continue home dose of duloxetine, buspirone, Ativan as needed Hyperlipidemia -Continue pravastatin DVT prophylaxis -Lovenox Covid prophylactic dose VS,Fishbone, I+O VS, Fishbone, I+O Laboratory Tests 06/27/21 05:43 Vital Signs Date Time Temp Pulse Resp B/P (MAP) Pulse Ox O2 Delivery O2 Flow Rate FiO2 06/27/21 18:34 143/64 (90) 06/27/21 13:49 97.4 71 19 91 Nasal Cannula 1.0 06/26/21 08:00 50 I&O- Last 24 Hours up to 6 AM 06/27/21 06:00 Intake Total 1900 ml Output Total 1950 ml Balance -50 ml JENI ESCALANTE DO Jun 27, 2021 19:34
[2021-06-27] MEDS: dexameTHASONE 4 MG/ML 1ML VIAL (J1100 PER 1MG) IV SCH (21:23)
[2021-06-28] VITALS: O2SAT 93
[2021-06-28 04:00] VITALS: O2SAT 94
[2021-06-28 06:00] VITALS: BP 140/84
[2021-06-28 06:07] LABS: HEMATOCRIT 39.3 % (36.0-47.0); HEMOGLOBIN 12.8 g/dl (12.0-15.5); MEAN CORPUSCULAR HEMOGLOBIN 28.1 pg (27.0-33.0); MEAN CORPUSCULAR HGB CONC 32.6 g/dl (32.0-36.5); MEAN CORPUSCULAR VOLUME 86.4 fl (80.0-96.0); PLATELET COUNT, AUTOMATED 399 10^3/uL (150-450); RED BLOOD COUNT 4.55 10^6/uL (4.00-5.40); WHITE BLOOD COUNT 10.7 10^3/uL (4.0-10.0)
[2021-06-28 06:21] LABS: INR 0.9; PROTHROMBIN TIME 12.5 SECONDS (12.7-14.5)
[2021-06-28 06:22] LABS: PARTIAL THROMBOPLASTIN TIME 28.8 SECONDS (25.9-37.0)
[2021-06-28 06:39] LABS: ALBUMIN 2.6 GM/DL (3.2-5.2); BILIRUBIN,DIRECT 0.1 MG/DL (0.0-0.2); BILIRUBIN,TOTAL 0.3 MG/DL (0.2-1.0); CALCIUM LEVEL 8.6 MG/DL (8.8-10.2); CREATININE FOR GFR 1.05 MG/DL (0.55-1.30); GLOMERULAR FILTRATION RATE 54.7 (>39); POTASSIUM SERUM 4.3 MEQ/L (3.5-5.1); TOTAL PROTEIN 6.4 GM/DL (6.4-8.2)
[2021-06-28 08:00] VITALS: O2SAT 94
[2021-06-28] MEDS: LABETALOL 200 MG TAB PO SCH (08:44)
[2021-06-28] MEDS: LORazepam 0.5 MG TAB PO SCH (08:44)
[2021-06-28] MEDS: PRAVASTATIN 20 MG TAB PO SCH (08:44)
[2021-06-28] MEDS: SENOKOT S TAB PO SCH (08:44)
[2021-06-28] MEDS: DULoxetine 30MG CAPSULE (CYMBALTA) PO SCH (08:44)
[2021-06-28] MEDS: GABAPENTIN 300 MG CAP PO SCH (08:44)
[2021-06-28] MEDS: ENOXAPARIN 30MG/0.3ML SYRINGE (J1650 PER 10MG) SC SCH (08:44)
[2021-06-28] MEDS: busPIRone 10 MG TAB PO SCH (08:45)
[2021-06-28] MEDS: **hydrALAZINE** 50 MG TAB PO SCH ×2 (08:45→15:54)
[2021-06-28] MEDS: hydrOXYzine 25 MG TAB PO SCH (08:45)
[2021-06-28] MEDS: HumaLOG INSULIN (NovoLOG) PER UNIT SC SCH ×2 (08:45→12:45)
[2021-06-28] MEDS ORDERED: HYDR-3911 PO (13:36)
[2021-06-28] MEDS ORDERED: PRED10TA2 PO (13:36)
[2021-06-28] MEDS ORDERED: DEXA6TAB PO (13:44)
--- NOTE | 2021-06-28 13:51 | DS.PDOC ---
Discharge Summary General Date of Admission Jun 22, 2021 at 17:03 Date of Discharge 06/28/21 Discharge Summary DISCHARGE DIAGNOSES: 1. Covid pneumonia 2. Reactive leukocytosis 3. Hypertension COMPLICATIONS/CHIEF COMPLAINT: Covid-19, Hypoxia. HOSPITAL COURSE: Ms. Chavez, is a 71-year-old female with a past medical history of hypertension, diabetes, hyperlipidemia, anxiety and depression who presented to [facility] on 06/22/2021 with complaints of increasing shortness of breath. She was found to be Covid positive. She required oxygen supplementation to maintain adequate saturations therefore was admitted for further management. In addition to her oxygen she was started on dexamethasone. She was found to be outside the window for remdesivir. On 06/28 she was titrated on 1 L nasal cannula but was unable to be weaned off. She reported significant improvement with her respiratory status and wanted to complete further therapy at home with dexamethasone and home O2. Considering patient had stayed stable on 1L nasal cannula for greater than 24 hours she was set up for home O2 and to complete dexamethasone course at home. She was in agreement with this plan and reports she would return to the emergency room department if her respiratory status was to change or call 911. During hospitalization, her antihypertensive regimen was adjusted. At the time of discharge, her blood pressure was 150/58. Her hydralazine was increased from 50 mg twice daily to 3 times a day. She was asked to follow-up with her primary care physician for further adjustment of her antihypertensives. Patient instructed to have repeat blood work done to ensure inflammatory markers have trended down with her primary care physician. DISCHARGE MEDICATIONS: Please see below. ALLERGIES: Please see below. PHYSICAL EXAMINATION ON DISCHARGE: VITAL SIGNS: Please see below. General: Lying in bed, no acute distress Head/Neck/Throat: Trachea midline, mucous membranes moist Eyes: Sclera anicteric, no erythema or discharge appreciated bilaterally Thorax: Normal respiratory effort on room air, lungs clear to auscultation bilaterally, no wheezes/rales/rhonchi Cardiovascular: Normal rate, regular rhythm, normal S1, S2; no S3, S4, rubs/gallops/murmurs Abdomen: Bowel sounds present, soft/nontender/nondistended Genitourinary: No CVA tenderness, no Malave in place Musculoskeletal: Moving all extremities, no edema Skin: Warm, dry Neurologic: AAOx3, speech fluent and goal-directed, no focal deficits, grossly intact LABORATORY DATA: Please see below. IMAGING: CT ANGIO CHEST Pulmonary arteries: No evidence of pulmonary artery emboli. No evidence of thoracic aortic aneurysm or dissection. Aorta: See "Pulmonary arteries" finding. Lungs: There is centrilobular emphysema more extensive in the upper lobes. There are areas of peripheral interstitial fibrosis at the lung bases. Pleural spaces: Unremarkable. No pneumothorax. No pleural effusion. Heart: There is a trace pericardial effusion. There is a pericardial calcification. Lymph nodes: There are small calcified mediastinal lymph nodes. No significantly enlarged noncalcified lymph nodes. Bones/joints: Unremarkable. No acute fracture. Soft tissues: Unremarkable. IMPRESSION: 1. No evidence of pulmonary artery emboli. 2. There is chronic lung disease with centrilobular emphysema and areas of interstitial fibrosis. PROGNOSIS: Good ACTIVITY: As tolerated ITEMS TO FOLLOWUP ON ON OUTPATIENT: 1. Follow up with primary care physician within 5 days DISCHARGE CONDITION: Stable. TIME SPENT ON DISCHARGE: 25 minutes. Vital Signs/I&Os Vital Signs Date Time Temp Pulse Resp B/P (MAP) Pulse Ox O2 Delivery O2 Flow Rate FiO2 06/28/21 08:44 77 184/79 06/28/21 08:00 1.0 06/28/21 08:00 94 Nasal Cannula 06/28/21 06:00 97.0 16 06/26/21 08:00 50 I&O- Last 24 Hours up to 6 AM 06/28/21 06:00 Output Total 800 ml Balance -800 ml Laboratory Data Labs 24H Laboratory Tests 2 06/27/21 16:38: Bedside Glucose (Misc Panel) 115H 06/27/21 21:19: Bedside Glucose (Misc Panel) 131H 06/28/21 05:30: Nucleated Red Blood Cells % (auto) 0.0, Prothrombin Time 12.5, Prothromb Time International Ratio 0.90, Activated Partial Thromboplast Time 28.8, Fibrinogen 474H, Anion Gap 8, Glomerular Filtration Rate 54.7, Calcium Level 8.6L, Ferritin 469H, Total Bilirubin 0.3, Direct Bilirubin 0.1, Aspartate Amino Transf (AST/SGOT) 23, Alanine Aminotransferase (ALT/SGPT) 47, Alkaline Phosphatase 66, Lactate Dehydrogenase 248H, Total Creatine Kinase 32, FG-[id number]-D-Type Natriuretic Peptide 1059H, Total Protein 6.4, Albumin 2.6L, Albumin/Globulin Ratio 0.7L, Procalcitonin <0.05 06/28/21 11:43: Bedside Glucose (Misc Panel) 117H CBC/BMP Laboratory Tests 06/28/21 05:30 FSBS Laboratory Tests Test 06/27/21 16:38 06/27/21 21:19 06/28/21 11:43 Range/Units Bedside Glucose (Misc Panel) 115 131 117 83-110 MG/DL Microbiology Microbiology 06/22/21 Blood Culture - Final, Complete NO GROWTH AFTER 5 DAYS 06/22/21 Blood Culture - Final, Complete NO GROWTH AFTER 5 DAYS Discharge Medications Scheduled Buspirone HCl (Buspirone HCl) 10 Mg Tablet, 10 MG PO BID, (Reported) Dexamethasone (Dexamethasone) 6 Mg Tablet, 6 MG PO DAILY Duloxetine Hcl (Duloxetine HCl) 60 Mg Capsule.dr, 60 MG PO DAILY, (Reported) Felodipine (Felodipine ER) 5 Mg Tab.er.24h, 5 MG PO QHS, (Reported) Gabapentin (Gabapentin) 300 Mg Capsule, 300 MG PO BID, (Reported) Hydralazine HCl (Hydralazine HCl) 50 Mg Tablet, 50 MG PO TID Hydroxyzine HCl (Hydroxyzine HCl) 25 Mg Tablet, 25 MG PO BID, (Reported) Labetalol HCl (Labetalol HCl) 200 Mg Tablet, 200 MG PO BID, (Reported) Levocetirizine Dihydrochloride (Levocetirizine Dihydrochloride) 5 Mg Tablet, 5 MG PO DAILY, (Reported) Lorazepam (Ativan) 0.5 Mg Tablet, 0.5 MG PO BID, (Reported) Metaxalone (Metaxalone) 400 Mg Tablet, 400 MG PO BID, (Reported) Pravastatin Sodium (Pravastatin Sodium) 40 Mg Tablet, 40 MG PO DAILY, (Reported) Scheduled PRN Acetaminophen (Tylenol) 325 Mg Tablet, 325 MG PO Q6H PRN for PAIN LEVEL 1-4, (Reported) Allergies Coded Allergies: Penicillins (Verified Allergy, Severe, HIVES, ITCHING,SOB, 04/15/21) Sulfa (Sulfonamide Antibiotics) (Verified Allergy, Intermediate, HIVES,ITC CHACHA, 04/15/21) morphine (Verified Allergy, Intermediate, ITCHING, 04/15/21) tizanidine (Verified Adverse Reaction, Intermediate, EXCESSIVE SLEEPINESS, 04/15/21) JASMINA REYES M.D. Jun 28, 2021 13:49
[2021-06-28 14:00] VITALS: BP 151/58
[2021-06-28 15:54] VITALS: BP 148/65
== END 2021-06-28 16:20 | disposition home health service (06) | DRG 177 ==
LOC: M ED 17:02 → M ED INP 17:03 → M 4MAIN 06-23 01:35
PROVIDERS: ADMIT Family Medicine; ATTEND Neuromusculoskeletal Medicine & OMM
PROC: 3E0333Z Introduction of Anti-inflammatory into Peripheral Vein, Percutaneous Approach (ICD-10-PCS; principal; 2021-06-22)
DX: U07.1 COVID-19 (principal); J12.82 Pneumonia due to coronavirus disease 2019; I10 Essential (primary) hypertension; E11.9 Type 2 diabetes mellitus without complications; E78.5 Hyperlipidemia, unspecified; F41.9 Anxiety disorder, unspecified; F32.9 Major depressive disorder, single episode, unspecified; D50.9 Iron deficiency anemia, unspecified; Z90.49 Acquired absence of other specified parts of digestive tract; Z87.891 Personal history of nicotine dependence; Z79.899 Other long term (current) drug therapy; Z88.0 Allergy status to penicillin; Z88.2 Allergy status to sulfonamides; Z88.5 Allergy status to narcotic agent; Z88.8 Allergy status to other drugs, medicaments and biological substances; E86.0 Dehydration; E83.42 Hypomagnesemia

== ENCOUNTER → 2021-08-18 | Outpatient (CLI) | payer MEDICARE, BC ==
[~2021-08-18] MED LIST changes: +ACET-907 PO; +DEXA6TAB PO; +HYDR-3363 PO; +PRED10TA2 PO; +VIST25CA PO
--- NOTE | 2021-08-22 10:21 | REPMRS ---
Patient History The patient states she had a clinical breast exam in August 2021. Family history of prostate cancer at age 50 or over in father. Tomosynthesis is performed. Volpara breast density is b. Tyrer-Cuzick lifetime risk of breast cancer 4.0%. Patient states no breast complaints today. Patient has signed MRS History Sheet. Digital Woman Screen Mammo: August 18, 2021 - Exam #: [id number] Bilateral CC and MLO view(s) were taken. Technologist: Sylvia Allen, Technologist Prior study comparison: 2019, bilateral digital mammo screening bilat, performed at [facility]. FINDINGS: The breast tissue is heterogeneously dense. This may lower the sensitivity of mammography. There has been no change in the appearance of the mammogram from the prior studies. There is a moderate amount of residual fibroglandular tissue which is fairly symmetric. There is no interval development of dominant mass, areas of architectural distortion, or clustered microcalcification typical of malignancy. Assessment: BI-RADS/ACR category 1 mammogram. Negative Mammogram. Recommendation Routine screening mammogram in 1 year (for women over age 40). This mammogram was interpreted with the aid of an FDA-approved computer-aided dectection system. Electronically Signed By: Juan Carr MD 08/22/21 [id number]
== END ==
LOC: M WHC 12:51
PROVIDERS: ATTEND Nurse Practitioner Women's Health
DX: Z01.419 Encounter for gynecological examination (general) (routine) without abnormal findings (principal); Z12.31 Encounter for screening mammogram for malignant neoplasm of breast
CPT/HCPCS: 77063; 77067; G0101

== ENCOUNTER → 2021-11-08 | Outpatient (CLI) | payer MEDICARE, BC ==
[~2021-11-08] MED LIST changes: +HYDR50TA PO
[2021-11-08 10:58] LABS: BASO # 0.1 10^3/uL (0.0-0.2); BASO % 0.9 % (0.0-1.0); EOS # 0.4 10^3/uL (0.0-0.5); EOS % 6.6 % (0.0-3.0); HEMATOCRIT 40.8 % (36.0-47.0); HEMOGLOBIN 12.9 g/dl (12.0-15.5); LYMPH # 2.1 10^3/uL (1.5-5.0); LYMPH % 33.1 % (24.0-44.0); MEAN CORPUSCULAR HEMOGLOBIN 30.6 pg (27.0-33.0); MEAN CORPUSCULAR HGB CONC 31.6 g/dl (32.0-36.5); MEAN CORPUSCULAR VOLUME 96.7 fl (80.0-96.0); MONO # 0.7 10^3/uL (0.0-0.8); MONO % 10.8 % (2.0-8.0); NEUTROPHILS # 3.1 10^3/uL (1.5-8.5); NEUTROPHILS % 48.1 % (36.0-66.0); PLATELET COUNT, AUTOMATED 193 10^3/uL (150-450); RED BLOOD COUNT 4.22 10^6/uL (4.00-5.40); WHITE BLOOD COUNT 6.4 10^3/uL (4.0-10.0)
[2021-11-08 11:39] LABS: CREATININE FOR GFR 1.1 MG/DL (0.55-1.30); FREE T4 0.88 NG/DL (0.76-1.46); GLOMERULAR FILTRATION RATE 51.8 (>39); PERCENT SATURATION 22.6 % (13.2-45.0); THYROID STIMULATING HORMONE 0.555 uIU/ML (0.358-3.740)
== END ==
LOC: M LAB 10:05
PROVIDERS: ATTEND Internal Medicine Gastroenterology
DX: D50.9 Iron deficiency anemia, unspecified (principal); E07.9 Disorder of thyroid, unspecified; Z79.899 Other long term (current) drug therapy

== ENCOUNTER → 2021-11-08 | Outpatient (CLI) | payer MEDICARE ==
[~2021-11-08] MED LIST changes: -HYDR50TA PO
[2021-11-08 11:02] LABS: BASO # 0.1 10^3/uL (0.0-0.2); BASO % 1.1 % (0.0-1.0); EOS # 0.4 10^3/uL (0.0-0.5); EOS % 6.1 % (0.0-3.0); HEMATOCRIT 41.4 % (36.0-47.0); LYMPH % 32.7 % (24.0-44.0); MEAN CORPUSCULAR HEMOGLOBIN 30.3 pg (27.0-33.0); MEAN CORPUSCULAR HGB CONC 31.4 g/dl (32.0-36.5); MEAN CORPUSCULAR VOLUME 96.5 fl (80.0-96.0); MONO # 0.7 10^3/uL (0.0-0.8); MONO % 11.4 % (2.0-8.0); NEUTROPHILS % 48.5 % (36.0-66.0); PLATELET COUNT, AUTOMATED 197 10^3/uL (150-450); RED BLOOD COUNT 4.29 10^6/uL (4.00-5.40); WHITE BLOOD COUNT 6.2 10^3/uL (4.0-10.0)
[2021-11-08 11:33] LABS: BILIRUBIN,TOTAL 0.2 MG/DL (0.2-1.0); CALCIUM LEVEL 9.8 MG/DL (8.8-10.2); CREATININE FOR GFR 1.13 MG/DL (0.55-1.30); GLOMERULAR FILTRATION RATE 50.2 (>39); PERCENT SATURATION 22.9 % (13.2-45.0); POTASSIUM SERUM 4.4 MEQ/L (3.5-5.1); TOTAL PROTEIN 7.3 GM/DL (6.4-8.2)
[2021-11-08 11:47] LABS: TOTAL 25(OH) VITAMIN D 101.2 NG/ML (30.0-100.0)
== END ==
LOC: M LAB 10:11
PROVIDERS: ATTEND Internal Medicine Hematology & Oncology
DX: D50.9 Iron deficiency anemia, unspecified (principal)

== ENCOUNTER 2021-11-29 06:57 | Day surgery (SDC) | payer MEDICARE, BC ==
[~2021-11-29] VITALS: Ht 157.5 cm; Wt 65.3 kg
[~2021-11-29 06:57] MED LIST changes: +HYDR50TA PO; +NS 1,000 ML IV ONE
[2021-11-29] MEDS ORDERED: fentaNYL 100 MCG/2 ML INJECTION As Ordered ONE (08:15)
[2021-11-29] MEDS ORDERED: propofoL 500 MG/50 ML VIAL As Ordered ONE ×2 (08:36→09:15)
[2021-11-29] MEDS ORDERED: LIDOCAINE 2% 100MG/5ML SDV (FOR ANES.) As Ordered ONE (08:36)
[2021-11-29 09:45] VITALS: BP 160/74
== END 2021-11-29 09:47 | disposition home or self-care (01) ==
LOC: M OPP 06:57
PROVIDERS: ATTEND Internal Medicine Gastroenterology
DX: D12.6 Benign neoplasm of colon, unspecified (principal); K57.30 Diverticulosis of large intestine without perforation or abscess without bleeding; K64.8 Other hemorrhoids; D50.9 Iron deficiency anemia, unspecified; K21.00 Gastro-esophageal reflux disease with esophagitis, without bleeding; K29.70 Gastritis, unspecified, without bleeding; Z79.899 Other long term (current) drug therapy; Z88.0 Allergy status to penicillin; Z88.2 Allergy status to sulfonamides; Z88.5 Allergy status to narcotic agent; Z91.040 Latex allergy status; Z85.01 Personal history of malignant neoplasm of esophagus
CPT/HCPCS: 43239; 45385; 88305; 93005; J3010

== ENCOUNTER → 2022-06-23 | Outpatient (REF) | payer MEDICARE, BC ==
[~2022-06-23] MED LIST changes: +FAMO40TA3; +FURO40TA2; -NS 1,000 ML IV ONE; +POTA10CA32
[2022-06-23 20:51] LABS: APPEARANCE, URINE MANUAL CLEAR (CLEAR); COLOR, URINE MANUAL YELLOW (YELLOW)
[2022-06-23 20:52] LABS: BILIRUBIN, URINE MANUAL NEGATIVE (NEGATIVE); BLOOD URINE MANUAL NEGATIVE (NEGATIVE); GLUCOSE, URINE (UA) MANUAL NEGATIVE (NEGATIVE); KETONE, URINE MANUAL NEGATIVE (NEGATIVE); LEUKOCYTE ESTERASE, URINE MAN NEGATIVE (NEGATIVE); NITRITE, URINE MANUAL NEGATIVE (NEGATIVE); PROTEIN, URINE MANUAL NEGATIVE (NEGATIVE); UROBILINOGEN, URINE MANUAL NORMAL (NORMAL)
== END ==
LOC: M LABWUC 17:33
PROVIDERS: ATTEND Internal Medicine Cardiovascular Disease
DX: N39.0 Urinary tract infection, site not specified (principal)

== ENCOUNTER → 2022-09-01 | Outpatient (CLI) | payer MEDICARE, BC | LOC: M WHC 13:02 | PROVIDERS: ATTEND Nurse Practitioner Family | DX: Z12.31 Encounter for screening mammogram for malignant neoplasm of breast (principal) ==

== ENCOUNTER → 2022-09-01 | Outpatient (REF) | payer MEDICARE, BC | LOC: M PLALAB 16:15 | PROVIDERS: ATTEND Nurse Practitioner Family | DX: Z53.9 Procedure and treatment not carried out, unspecified reason (principal) ==

== ENCOUNTER → 2023-06-14 | Outpatient (CLI) | payer MEDICARE, BC ==
[~2023-06-14] MED LIST changes: +ACET-716 PO; -POTA10CA32; +POTA10CA60
[2023-06-14 18:40] LABS: BASO # 0.1 10^3/uL (0.0-0.2); BASO % 0.7 % (0.0-1.0); EOS # 0.4 10^3/uL (0.0-0.5); EOS % 5.8 % (0.0-3.0); HEMATOCRIT 41.2 % (36.0-47.0); HEMOGLOBIN 12.6 g/dl (12.0-15.5); LYMPH # 2.1 10^3/uL (1.5-5.0); LYMPH % 28.7 % (24.0-44.0); MEAN CORPUSCULAR HEMOGLOBIN 29.2 pg (27.0-33.0); MEAN CORPUSCULAR HGB CONC 30.6 g/dl (32.0-36.5); MEAN CORPUSCULAR VOLUME 95.6 fl (80.0-96.0); MONO # 0.7 10^3/uL (0.0-0.8); MONO % 9.4 % (2.0-8.0); NEUTROPHILS % 55.1 % (36.0-66.0); PLATELET COUNT, AUTOMATED 264 10^3/uL (150-450); RED BLOOD COUNT 4.31 10^6/uL (4.00-5.40); WHITE BLOOD COUNT 7.3 10^3/uL (4.0-10.0)
[2023-06-14 19:04] LABS: FERRITIN 51.5 NG/ML (7.3-270.7)
[2023-06-14 19:06] LABS: ALBUMIN 3.9 G/DL (3.2-5.2); BILIRUBIN,TOTAL 0.2 MG/DL (0.3-1.2); CALCIUM LEVEL 9.4 MG/DL (8.3-10.6); CREATININE FOR GFR 1.28 MG/DL (0.55-1.30); GLOMERULAR FILTRATION RATE 43.3 (>39); PERCENT SATURATION 18.3 % (13.2-45.0); TOTAL PROTEIN 6.7 G/DL (5.7-8.2)
[2023-06-16 19:11] LABS: RHEUMATOID FACTOR QUANT 5.1 IU/ML (<14)
[2023-06-17 12:10] LABS: ANTINUCLEAR ANTIBODIES DIRECT Negative (Negative)
== END ==
LOC: M WUC 13:02
PROVIDERS: ATTEND Internal Medicine Hematology & Oncology
DX: D50.9 Iron deficiency anemia, unspecified (principal)

== ENCOUNTER 2023-09-27 16:56 | Emergency (ER) | payer MEDICARE, BC ==
[~2023-09-27] VITALS: Ht 157.5 cm; Wt 67.3 kg
[~2023-09-27 16:56] MED LIST changes: +ESOM40CA35
[2023-09-27 17:23] VITALS: TEMP 96.9
[2023-09-27] MEDS ORDERED: methylPREDNISolone 125MG 2ML VIAL IV ONE (17:25)
[2023-09-27] MEDS ORDERED: IPRATROPIUM 0.5MG/ALBUTEROL 2.5MG INH SOL UD 3ML (DUONEB) NEB PRN (17:25)
[2023-09-27] MEDS ORDERED: NITROGLYCERIN 2% OINT 1 GM *U/D* PKT TOP ONE (17:50)
[2023-09-27 17:56] LABS: BASO # 0.1 10^3/uL (0.0-0.2); BASO % 0.5 % (0.0-1.0); EOS # 0.3 10^3/uL (0.0-0.5); EOS % 2.8 % (0.0-3.0); LYMPH % 10.6 % (24.0-44.0); MEAN CORPUSCULAR HEMOGLOBIN 29.5 pg (27.0-33.0); MEAN CORPUSCULAR HGB CONC 31.7 g/dl (32.0-36.5); MONO # 0.4 10^3/uL (0.0-0.8); MONO % 3.9 % (2.0-8.0); NEUTROPHILS # 7.6 10^3/uL (1.5-8.5); NEUTROPHILS % 81.9 % (36.0-66.0); PLATELET COUNT, AUTOMATED 272 10^3/uL (150-450); RED BLOOD COUNT 4.41 10^6/uL (4.00-5.40); WHITE BLOOD COUNT 9.3 10^3/uL (4.0-10.0)
[2023-09-27 18:18] LABS: CK-MB VALUE MASS 5.1 NG/ML (<3.6)
[2023-09-27 18:19] LABS: C REACTIVE PROTEIN QUANTITATIV < 0.40 MG/DL (<1.0)
[2023-09-27 18:20] LABS: CPK CREATINE PHOSPHOKINASE 203 U/L (34-145); INR 1.02; MB/CK RELATIVE INDEX 2.51 (< OR =4); PROTHROMBIN TIME 13.1 SECONDS (12.5-14.5)
[2023-09-27 18:21] LABS: ALKALINE PHOSPHATASE 92 U/L (46-116); ALT/SGPT 20 U/L (7.0-40); AST/SGOT 18 U/L (<34); BILIRUBIN,DIRECT 0.1 MG/DL (<0.4); BILIRUBIN,TOTAL 0.3 MG/DL (0.3-1.2); BLOOD UREA NITROGEN 17 MG/DL (9-23); CALCIUM LEVEL 9.1 MG/DL (8.3-10.6); CARBON DIOXIDE LEVEL 28 MMOL/L (20-31); CHLORIDE LEVEL 106 MMOL/L (98-107); CREATININE FOR GFR 0.99 MG/DL (0.55-1.30); GLOMERULAR FILTRATION RATE 58.2 (>39); GLUCOSE, FASTING 109 MG/DL (74-106); MAGNESIUM LEVEL 1.7 MG/DL (1.8-2.4); SODIUM LEVEL 143 MMOL/L (136-145); TOTAL PROTEIN 6.9 G/DL (5.7-8.2)
[2023-09-27 18:23] LABS: D-DIMER QUANT 0.73 ug/mL (<0.5)
[2023-09-27] MEDS ORDERED: **hydrALAZINE** 50 MG TAB PO ONE (18:45)
[2023-09-27] MEDS ORDERED: LABETALOL 200 MG TAB PO ONE (18:45)
[2023-09-27] MEDS ORDERED: ISOVUE-370 76% 100ML VIAL As Ordered ONE (18:47)
[2023-09-27 19:09] VITALS: BP 184/82
[2023-09-27 19:09] LABS: CK-MB VALUE MASS 4.6 NG/ML (<3.6)
[2023-09-27 19:10] LABS: MB/CK RELATIVE INDEX 2.35 (< OR =4)
[2023-09-27 20:15] VITALS: BP 175/77
[2023-09-27] MEDS ORDERED: NS 500 ML IV ONE (20:15)
[2023-09-27 20:16] VITALS: O2SAT 95
[2023-09-27] MEDS ORDERED: COMBAER6 INH (22:13)
[2023-09-27] MEDS ORDERED: PRED20TA PO (22:13)
== END 2023-09-27 23:27 | disposition home or self-care (01) ==
LOC: M ED 16:56
DX: J44.1 Chronic obstructive pulmonary disease with (acute) exacerbation (principal); I44.7 Left bundle-branch block, unspecified; I10 Essential (primary) hypertension; Z87.891 Personal history of nicotine dependence; Z88.2 Allergy status to sulfonamides; Z88.5 Allergy status to narcotic agent; Z88.8 Allergy status to other drugs, medicaments and biological substances; Z91.040 Latex allergy status; Z79.899 Other long term (current) drug therapy
CPT/HCPCS: 71045; 71275; 80048; 80076; 82550; 82553; 83605; 83735; 83880; 84484; 85025; 85379; 85610; 86140; 87040; 87486; 87581; 87633; 87798; 93005; 93041; 94640; 94760; 96361; 96374; 99285; J2930; Q9967

== ENCOUNTER → 2023-12-06 | Outpatient (CLI) | payer MEDICARE ==
[~2023-12-06] MED LIST changes: +COMBAER6 INH; -HYDR-3911 PO; -HYDR50TA PO; +HYDR50TA46 PO; +HYDR50TA47 PO; +PRED20TA PO
== END ==
LOC: M WHC 13:18
PROVIDERS: ATTEND Nurse Practitioner Family
DX: Z12.31 Encounter for screening mammogram for malignant neoplasm of breast (principal)

== ENCOUNTER → 2023-12-13 | Outpatient (REF) | payer MEDICARE ==
[2023-12-13 17:51] LABS: ALBUMIN 4.2 G/DL (3.2-5.2); BILIRUBIN,TOTAL 0.3 MG/DL (0.3-1.2); CALCIUM LEVEL 9.6 MG/DL (8.3-10.6); CREATININE FOR GFR 1.25 MG/DL (0.55-1.30); GLOMERULAR FILTRATION RATE 44.5 (>39); PERCENT SATURATION 22.7 % (13.2-45.0); POTASSIUM SERUM 4.1 MMOL/L (3.5-5.1); TOTAL PROTEIN 6.6 G/DL (5.7-8.2)
[2023-12-13 17:52] LABS: FERRITIN 40.5 NG/ML (7.3-270.7)
[2023-12-13 18:01] LABS: BASO # 0.1 10^3/uL (0.0-0.2); BASO % 0.9 % (0.0-1.0); EOS # 0.5 10^3/uL (0.0-0.5); EOS % 7.9 % (0.0-3.0); HEMATOCRIT 41.5 % (36.0-47.0); HEMOGLOBIN 13.1 g/dl (12.0-15.5); LYMPH # 2.2 10^3/uL (1.5-5.0); LYMPH % 34.2 % (24.0-44.0); MEAN CORPUSCULAR HEMOGLOBIN 29.6 pg (27.0-33.0); MEAN CORPUSCULAR HGB CONC 31.6 g/dl (32.0-36.5); MEAN CORPUSCULAR VOLUME 93.7 fl (80.0-96.0); MONO # 0.7 10^3/uL (0.0-0.8); MONO % 10.5 % (2.0-8.0); NEUTROPHILS % 46.2 % (36.0-66.0); PLATELET COUNT, AUTOMATED 244 10^3/uL (150-450); RED BLOOD COUNT 4.43 10^6/uL (4.00-5.40); WHITE BLOOD COUNT 6.5 10^3/uL (4.0-10.0)
== END ==
LOC: M LABWUC 16:22
PROVIDERS: ATTEND Internal Medicine Hematology & Oncology
DX: Z00.00 Encounter for general adult medical examination without abnormal findings (principal); D50.9 Iron deficiency anemia, unspecified

== ENCOUNTER 2024-03-02 09:32 | Emergency (ER) | payer MEDICARE ==
[~2024-03-02] VITALS: Ht 157.5 cm; Wt 66.7 kg
[~2024-03-02 09:32] MED LIST changes: -POTA10CA60; +POTA10CA70
[2024-03-02] MEDS ORDERED: OMEP40CA5 (09:52)
[2024-03-02] MEDS ORDERED: BACL10TA2 (09:52)
[2024-03-02] MEDS ORDERED: META0.52 PO (09:52)
[2024-03-02] MEDS ORDERED: CYCL-707 (09:52)
[2024-03-02] MEDS ORDERED: DULC5TAB PO (09:53)
[2024-03-02] MEDS: BISACODYL 10MG SUPP PR ONE (11:54)
[2024-03-02] MEDS: NS 1,000 ML IV ONE (11:54)
[2024-03-02 12:01] LABS: BASO % 0.3 % (0.0-1.0); EOS % 0.2 % (0.0-3.0); HEMOGLOBIN 14.4 g/dl (12.0-15.5); LYMPH # 1.4 10^3/uL (1.5-5.0); LYMPH % 9.8 % (24.0-44.0); MEAN CORPUSCULAR HEMOGLOBIN 30.3 pg (27.0-33.0); MEAN CORPUSCULAR HGB CONC 32.7 g/dl (32.0-36.5); MEAN CORPUSCULAR VOLUME 92.6 fl (80.0-96.0); MONO # 0.7 10^3/uL (0.0-0.8); MONO % 4.5 % (2.0-8.0); NEUTROPHILS # 12.4 10^3/uL (1.5-8.5); NEUTROPHILS % 84.9 % (36.0-66.0); PLATELET COUNT, AUTOMATED 252 10^3/uL (150-450); RED BLOOD COUNT 4.75 10^6/uL (4.00-5.40); WHITE BLOOD COUNT 14.5 10^3/uL (4.0-10.0)
[2024-03-02] MEDS: GASTROGRAFIN SOLUTION 30ML PO SCH (12:15)
[2024-03-02 12:27] LABS: ALBUMIN 4.4 G/DL (3.2-5.2); BILIRUBIN,TOTAL 0.6 MG/DL (0.3-1.2); CALCIUM LEVEL 9.8 MG/DL (8.3-10.6); CREATININE FOR GFR 1.1 MG/DL (0.55-1.30); GLOMERULAR FILTRATION RATE 51.5 (>39); MAGNESIUM LEVEL 1.9 MG/DL (1.8-2.4); TOTAL PROTEIN 7.2 G/DL (5.7-8.2)
[2024-03-02] MEDS ORDERED: ISOVUE-370 76% 100ML VIAL As Ordered ONE (13:35)
[2024-03-02] MEDS: MAGNESIUM CITRATE 300ML BTL PO ONE (14:22)
[2024-03-02] MEDS ORDERED: MIRA3350 PO (16:26)
[2024-03-02 16:38] VITALS: BP 160/69; TEMP 98; O2SAT 98
== END 2024-03-02 16:44 | disposition home or self-care (01) ==
LOC: M ED 09:32
DX: K59.00 Constipation, unspecified (principal); K76.0 Fatty (change of) liver, not elsewhere classified; E11.9 Type 2 diabetes mellitus without complications; I10 Essential (primary) hypertension; K21.9 Gastro-esophageal reflux disease without esophagitis; E78.5 Hyperlipidemia, unspecified; K57.92 Diverticulitis of intestine, part unspecified, without perforation or abscess without bleeding; J44.9 Chronic obstructive pulmonary disease, unspecified; M54.50 Low back pain, unspecified; F41.9 Anxiety disorder, unspecified; Z88.0 Allergy status to penicillin; Z88.2 Allergy status to sulfonamides; Z88.5 Allergy status to narcotic agent; Z91.040 Latex allergy status; Z79.52 Long term (current) use of systemic steroids; Z79.899 Other long term (current) drug therapy
CPT/HCPCS: 74021; 74177; 80053; 81001; 82150; 83605; 83690; 83735; 85025; 96360; 96361; 99284; Q9963; Q9967

== ENCOUNTER → 2024-06-12 | Outpatient (CLI) | payer MEDICARE ==
[~2024-06-12] MED LIST changes: +BACL10TA2; +CYCL-707; +DULC5TAB PO; +META0.52 PO; +MIRA3350 PO; +OMEP40CA5
[2024-06-12 18:05] LABS: FERRITIN 31.6 NG/ML (7.3-270.7)
[2024-06-12 18:08] LABS: ALBUMIN 4.1 G/DL (3.2-5.2); ALKALINE PHOSPHATASE 69 U/L (46-116); ALT/SGPT 22 U/L (7.0-40); AST/SGOT 17 U/L (<34); BILIRUBIN,TOTAL 0.2 MG/DL (0.3-1.2); BLOOD UREA NITROGEN 21 MG/DL (9-23); CALCIUM LEVEL 9.8 MG/DL (8.3-10.6); CARBON DIOXIDE LEVEL 29 MMOL/L (20-31); CHLORIDE LEVEL 106 MMOL/L (98-107); GLOMERULAR FILTRATION RATE 46.5 (>39); GLUCOSE, FASTING 98 MG/DL (74-106); IRON (FE) 87 UG/DL (50-170); PERCENT SATURATION 24.9 % (13.2-45.0); POTASSIUM SERUM 4.1 MMOL/L (3.5-5.1); SODIUM LEVEL 143 MMOL/L (136-145); TOTAL IRON BINDING CAPACITY 350 UG/DL (250-425); TOTAL PROTEIN 6.7 G/DL (5.7-8.2)
[2024-06-12 18:15] LABS: VITAMIN B12 LEVEL > 2000 PG/ML (211-911)
== END ==
LOC: M WUC 12:23
PROVIDERS: ATTEND Internal Medicine Hematology & Oncology
DX: D50.9 Iron deficiency anemia, unspecified (principal)

== ENCOUNTER 2024-07-13 12:15 | Emergency (ER) | payer MEDICARE ==
[~2024-07-13] VITALS: Ht 157.5 cm; Wt 61.4 kg
[~2024-07-13 12:15] MED LIST changes: -CALC500T31 PO; +GABA-1172 PO; -GABA-282 PO; +OYST500T16 PO
[2024-07-13] MEDS: PANTOPRAZOLE 40MG VIAL IV ONE (12:52)
[2024-07-13 13:00] LABS: BASO # 0.1 10^3/uL (0.0-0.2); BASO % 0.7 % (0.0-1.0); EOS # 0.3 10^3/uL (0.0-0.5); HEMATOCRIT 39.6 % (36.0-47.0); HEMOGLOBIN 12.9 g/dl (12.0-15.5); LYMPH # 1.7 10^3/uL (1.5-5.0); LYMPH % 24.5 % (24.0-44.0); MEAN CORPUSCULAR HEMOGLOBIN 30.1 pg (27.0-33.0); MEAN CORPUSCULAR HGB CONC 32.6 g/dl (32.0-36.5); MEAN CORPUSCULAR VOLUME 92.5 fl (80.0-96.0); MONO # 0.5 10^3/uL (0.0-0.8); MONO % 7.7 % (2.0-8.0); NEUTROPHILS # 4.3 10^3/uL (1.5-8.5); PLATELET COUNT, AUTOMATED 233 10^3/uL (150-450); RED BLOOD COUNT 4.28 10^6/uL (4.00-5.40); WHITE BLOOD COUNT 6.9 10^3/uL (4.0-10.0)
[2024-07-13 13:25] LABS: LIPASE 37 U/L (12-53)
[2024-07-13 13:31] LABS: ALBUMIN 3.9 G/DL (3.2-5.2); ALKALINE PHOSPHATASE 71 U/L (46-116); ALT/SGPT 24 U/L (7.0-40); AST/SGOT 37 U/L (<34); BILIRUBIN,DIRECT < 0.1 MG/DL (<0.4); BILIRUBIN,TOTAL 0.4 MG/DL (0.3-1.2); BLOOD UREA NITROGEN 20 MG/DL (9-23); CALCIUM LEVEL 9.5 MG/DL (8.3-10.6); CARBON DIOXIDE LEVEL 25 MMOL/L (20-31); CHLORIDE LEVEL 109 MMOL/L (98-107); CREATININE FOR GFR 1.12 MG/DL (0.55-1.30); GLOMERULAR FILTRATION RATE 50.4 (>39); GLUCOSE, FASTING 109 MG/DL (74-106); POTASSIUM SERUM 4.5 MMOL/L (3.5-5.1); SODIUM LEVEL 141 MMOL/L (136-145); TOTAL PROTEIN 6.8 G/DL (5.7-8.2)
[2024-07-13] MEDS ORDERED: CARA1TAB6 PO (15:05)
[2024-07-13 15:21] VITALS: BP 152/78; TEMP 95.8; O2SAT 94
== END 2024-07-13 15:35 | disposition home or self-care (01) ==
LOC: M ED 12:15
DX: K29.00 Acute gastritis without bleeding (principal); K20.90 Esophagitis, unspecified without bleeding; I44.7 Left bundle-branch block, unspecified; I45.81 Long QT syndrome; E11.9 Type 2 diabetes mellitus without complications; D50.9 Iron deficiency anemia, unspecified; I10 Essential (primary) hypertension; E78.5 Hyperlipidemia, unspecified; K21.9 Gastro-esophageal reflux disease without esophagitis; Z88.0 Allergy status to penicillin; Z88.2 Allergy status to sulfonamides; Z88.5 Allergy status to narcotic agent; Z88.8 Allergy status to other drugs, medicaments and biological substances; Z91.040 Latex allergy status; Z79.1 Long term (current) use of non-steroidal anti-inflammatories (NSAID); Z79.51 Long term (current) use of inhaled steroids; Z79.2 Long term (current) use of antibiotics; Z79.899 Other long term (current) drug therapy
CPT/HCPCS: 80048; 80076; 83690; 84484; 85025; 93005; 96374; 99284; J2470